=== PATIENT | male | born 1960 | race Caucasian/White ===

== ENCOUNTER 2019-12-14 22:42 | Emergency (ER) | payer MEDICARE, MEDICAID, SELFPAY ==
[2019-12-14 22:43] VITALS: BP 102/66; PULSE 86; RESP 17; TEMP 36.4; O2SAT 98; BMI 29.5
--- NOTE | 2019-12-14 22:57 | RAD_ITS ---
STUDY: X-RAY - PELVIS AND LEFT HIP REASON FOR EXAM: Male, 59 years old. Hip pain TECHNIQUE: 3 views of the pelvis and hip. COMPARISON: None. FINDINGS: There is a non-specific bowel gas pattern. Normal visualized soft tissue structures. Normal bilateral iliac wings, sacroiliac joints and visualized sacrum. Normal bilateral superior and inferior pubic rami. Normal pubic symphysis. Normal bilateral ischial tuberosities. Normal visualized femoral head. Normal acetabulum. Normal hip joint. RAD/HIP, UNI W/ Pelvis 2-3 Views IMPRESSION: Normal x-ray examination of the pelvis and hip. Electronically Signed: Adrian Luna MD at 23:29 EST , Service support ,
[2019-12-14] MEDS: Ketorolac 30 MG/ML Syringe IM (23:05)
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
--- NOTE | 2019-12-14 23:39 | ED.DEP ---
ED Disposition - Plan for ED Patient: Instructions: Hip Strain Referrals: Daya Jay, JOHNNY-C [Primary Care Provider] -
[2019-12-14 23:46] VITALS: BP 117/54; PULSE 69; RESP 18; O2SAT 96
== END 2019-12-14 23:47 | disposition home or self-care (01) ==
PROVIDERS: Emergency Provider Emergency Medicine; PCP Nurse Practitioner Family
DX: M25.552 Pain in left hip (principal); G89.29 Other chronic pain; I10 Essential (primary) hypertension; Z72.0 Tobacco use
CPT/HCPCS: 73502; 96372; 99282; J7050

== ENCOUNTER → 2020-01-09 | Outpatient (CLI) | payer MEDICARE, MEDICAID, SELFPAY ==
[2019-12-14 22:43] VITALS: BMI 29.5
--- NOTE | 2020-01-09 11:12 | RAD_ITS ---
STUDY: X-RAY - LUMBAR SPINE REASON FOR EXAM: Male, 59 years old. Left hip pain, NKI TECHNIQUE: 3 view(s) of the lumbar spine were obtained. COMPARISON: None FINDINGS: Normal lumbar lordosis. There is no substantial scoliosis. There is a normal alignment of the vertebrae. Normal vertebral bodies and endplates. Mild generalized degenerative disc changes and minimal spondylitic endplate changes. There is no demonstrated fracture. There is no demonstrated spondylolysis of the pars interarticulares. Atherosclerotic vascular calcifications. Calcifications in the infrarenal abdominal wall suggests that there may be a fusiform dilatation of the aorta along the order of 3 to 4 cm diameter. RAD/Lumbar Spine 2 or 3 Views IMPRESSION: Normal alignment of the lumbar spine without fracture, osteolytic or blastic bone lesion. Mild degenerative disc and joint changes. 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 Ultrasound versus CT evaluation recommended. Electronically Signed: Kathrin Downing MD at 20:10 EST , Service support ,
== END | disposition home or self-care (01) ==
LOC: RAD 11:05
PROVIDERS: PCP Nurse Practitioner Family; Referring Provider Anesthesiology Pain Medicine; Visit Provider Anesthesiology Pain Medicine
DX: M54.5 Low back pain (principal)
CPT/HCPCS: 72100

== ENCOUNTER → 2020-01-18 | Outpatient (CLI) | payer MEDICARE, MEDICAID, SELFPAY ==
[2020-01-15 09:06] VITALS: BMI 30.1
[2020-01-18 10:14] LABS: AST(SGOT) 18 U/L (15-37); Alanine Aminotransfer ALT/SGPT 25 U/L (16-61); Albumin, Serum 3.6 g/dL (3.2-5.0); Alkaline Phosphatase 92 U/L (45-117); Bilirubin, Direct 0.07 mg/dL (0.00-0.30); Cholesterol 198 mg/dL (200); Globulin 3.6 g/dL (2.2-4.2); High Density Lipoprotein 49 mg/dL; Protein, Total 7.2 g/dL (6.4-8.2); Triglycerides 197 mg/dL; Very Low Density Lipoprotein 39 mg/dL (5-40)
== END | disposition home or self-care (01) ==
PROVIDERS: PCP Nurse Practitioner Family; Visit Provider Internal Medicine Cardiovascular Disease
DX: E78.00 Pure hypercholesterolemia, unspecified (principal)
CPT/HCPCS: 36415; 80061; 80076

== ENCOUNTER → 2020-01-31 | Outpatient (CLI) | payer MEDICARE, MEDICAID, SELFPAY ==
[2020-01-15 09:06] VITALS: BMI 30.1
--- NOTE | 2020-01-31 12:41 | ECHOCS_ITS ---
Reason For Study: CHEST PAIN Procedure This was a 2D Doppler, Color Flow transthoracic echocardiogram. The study was technically difficult. Contrast injection was performed. Due to poor accoustic windows. Exam performed in department. Left Ventricle Moderately dilated left ventricle. The estimated ejection fraction is 50 %. Stage 1 diastolic dysfunction. There is mild global hypokinesis of the left ventricle. Right Ventricle Moderately dilated right ventricle. Normal systolic function. Atria The left atrium is mildly enlarged. Normal right atrium. Prominent eustachian valve. Normal atrial septum. Mitral Valve Equivocal mitral valve prolapse. Tricuspid Valve Normal tricuspid valve. Unable to estimate RV systolic pressure due to insufficient tricuspid regurgitant envelope. Aortic Valve Trisinus/trileaflet aortic valve. Mild (1+) aortic valve insufficiency. Pulmonic Valve Normal pulmonic valve. Great Vessels Moderately dilated aortic root. The ascending aorta is moderately dilated. The pulmonary artery is normal size. Normal inferior vena cava. Inferior vena cava collapse with sniff. Pericardium/Pleural No pericardial effusion. Medication 22 gauge I.V. with prn adaptor inserted into right arm. Diluted definity 3.0ml given slow IV push to enhance endocardial definition. MMode/2D Measurements & Calculations LVIDd: 5.6 cm IVSd: 1.1 cm Ao root diam: 5.1 cm LVIDs: 4.2 cm LVPWd: 1.1 cm RVDd: 4.3 cm FS: 25.5 % LAV(MOD-bp): 91.1 ml LA A4 area: 23.1 cm2 LA dimension(2D): 3.5 cm LAV(MOD-bp) Indexed: 43.7 ml/m2 LAV(MOD-sp2): 82.4 ml LAV(MOD-sp4): 84.2 ml RA A4 area: 13.9 cm2 Time Measurements MV dec time: 0.14 sec Doppler Measurements & Calculations MV E max haim: 64.2 cm/sec Lat Peak E' Haim: 8.1 cm/sec Med Peak E' Haim: 4.9 cm/sec MV A max haim: 74.4 cm/sec E/E' lat: 7.9 E/E' med: 13.1 MV E/A: 0.86 Ao V2 max: 112.1 cm/sec AI max haim: 437.6 cm/sec LV V1 max: 98.1 cm/sec Ao max P.0 mmHg AI max P.6 mmHg LV V1 max P.9 mmHg Ao V2 mean: 80.6 cm/sec AI dec slope: 175.8 cm/sec2 LV V1 mean P.1 mmHg Ao mean P.8 mmHg AI P1/2t: 729.1 msec LV V1 mean: 69.0 cm/sec Ao V2 VTI: 26.5 cm LV V1 VTI: 23.6 cm PA V2 max: 64.3 cm/sec Interpretation Summary Moderately dilated left ventricle. The estimated ejection fraction is 50 %. Stage 1 diastolic dysfunction. There is mild global hypokinesis of the left ventricle. Moderately dilated right ventricle. The left atrium is mildly enlarged. Equivocal posterior mitral valve prolapse without MR. Unable to estimate RV systolic pressure due to insufficient tricuspid regurgitant envelope. Mild (1+) aortic valve insufficiency. Moderately dilated aortic root at 5.1 cm. The ascending aorta is moderately dilated at 4.0cm. The study was technically difficult. Contrast injection was performed. There is no comparison study available. Ordering Physician: Esequiel Salazar Referring Physician: Daya Jay Performed By: Anu San, IRENE, RVT
== END | disposition home or self-care (01) ==
LOC: CVS 12:41
PROVIDERS: PCP Nurse Practitioner Family; Referring Provider Internal Medicine Cardiovascular Disease; Visit Provider Internal Medicine Cardiovascular Disease
DX: I25.10 Atherosclerotic heart disease of native coronary artery without angina pectoris (principal); R07.9 Chest pain, unspecified
CPT/HCPCS: 93306; Q9957; A4216; C8929

== ENCOUNTER → 2020-02-06 | Outpatient (CLI) | payer MEDICARE, MEDICAID, SELFPAY ==
[2020-01-15 09:06] VITALS: BMI 30.1
--- NOTE | 2020-02-06 10:28 | STEWCON_ITS ---
Reason For Study: Chest Pain; CAD Stress Results Protocol: Modified Dinesh Protocol With Definity Maximum Predicted HR: 160 bpm Target HR: 136 bpm % Maximum Predicted HR: 76 % DurationHeart Rate Stage (mm:ss) (bpm) BP Comment Baseline 59 138/822/10 Chest Pain; 5 ML Diluted Definity Modified Dinesh Protocol Stage 0 3:00 76 168/842/10 Chest Pain Modified Dinesh Protocol Stage 1/2 3:00 79 184/862/10 Chest Pain Modified Dinesh Protocol Stage 1 3:00 90 190/782/10 Chest Pain; Mild Dyspnea Modified Dinesh Protocol Stage 2 3:00 109 198/742/10 Chest Pain; Moderate Dyspnea Modified Dinesh Protocol Stage 3 1:09 121 / 2/10 Chest Pain; Moderate Dyspnea Recovery 64 140/721/10 Chest Pain Stress Duration: 13:09 mm:ss Maximum Stress HR: 121 bpm METS: 9 Baseline Echocardiogram Findings The estimated ejection fraction is 65 %. Stress Echo Wall motion Data Resting WM Intermediate WM Stress WM Resting Wall Motion Wall Motion Stress No regional wall motion No regional wall motion abnormalities noted. abnormalities noted. EKG Data The baseline ECG displays normal sinus rhythm. The maximum heart rate attained was 121 beats per minute. This was 75% of maximum predicted heart rate. The patient exercised into stage 3 of the Dinesh protocol. During stress, there were no ST or T wave changes noted to suggest ischemia. No arrhythmias noted. Interpretation Summary The estimated ejection fraction is 65 %. Normal, adequate, treadmill echocardiogram. Negative for ischemia by EKG and echocardiographic criteria. Patient had baseline 2 out of 10 substernal chest pain which did not worsen or improve during exercise. Test terminated due to fatigue and dyspnea. Hypertensive blood pressure response to exercise. Average exercise capacity for age. Rate-pressure product of 20,988 indicating adequate testing. Final LVEF is 75%. Decrease sensitivity due to poor echo windows requiring Definity agent. Patient tolerated procedure well. No complications. The study was technically difficult. Contrast injection was performed. Ordering Physician: Esequiel Salazar Referring Physician: Daya Jay Performed By: Carole Ventura, IRENE, RVT
== END | disposition home or self-care (01) ==
LOC: CVS 10:28
PROVIDERS: PCP Nurse Practitioner Family; Referring Provider Internal Medicine Cardiovascular Disease; Visit Provider Internal Medicine Cardiovascular Disease
DX: I25.10 Atherosclerotic heart disease of native coronary artery without angina pectoris (principal); R07.9 Chest pain, unspecified; E78.5 Hyperlipidemia, unspecified; Z95.5 Presence of coronary angioplasty implant and graft; Z72.0 Tobacco use
CPT/HCPCS: 93017; 93350; Q9957; A4216; C8928

== ENCOUNTER 2020-03-21 06:42 | Day surgery (SDC) | payer MEDICARE, MEDICAID, SELFPAY ==
[2020-01-15 09:06] VITALS: BMI 30.1
--- NOTE | 2020-03-19 15:21 | HP.PCM_ITS ---
History and Physical Date of Admission: 03/21/20 Patient is a very pleasant 59-year-old gentleman with a history of hypertension, bipolar disorder, hyperlipidemia, self reported nondiabetic, COPD, tobacco use with 1/2-1 pack per day for for the past 40 years, dilated aortic root, coronary artery disease status post angioplasty and stenting proximal and mid LAD at [facility] in [facility] on 03/03/2012. At the time of his catheterization his RCA was normal, as was his left circumflex. At that time he received a 3.5 ex-18 bare-metal integrity stent to his proximal/mid LAD. Previous to that he underwent a catheterization at [facility] on 06/17/2009 which showed essentially normal coronary arteries and normal ejection fraction. Lexiscan/MPI on 03/21/2019 at [facility] was reportedly normal. Most recent echocardiogram dated 04/18/2018, again at an outside hospital showed an EF of 55 to 59%, mild aortic insufficiency, dilated aortic root 4.6 cm and RVSP of 24 mmHg. His most recent lipids dated 11/30/2019 showed an LDL of 103 and HDL 37. He underwent echocardiogram on 01/31/2020 that showed ejection of 50%, stage I diastolic dysfunction, mild global hypokinesis of left ventricle, mildly dilated right ventricle, mildly enlarged left atrium, moderately dilated aortic root at 5.1 cm, and ascending aorta moderately dilated at 4 cm. He underwent a stress echocardiogram on 02/06/2020 that was considered to be a normal, adequate, treadmill echocardiogram that was negative for ischemia by EKG and echocardiographic criteria. Patient had baseline 2 out of 10 substernal chest pain which did not worsen or improve during exercise. He did have hypertensive blood pressure response and started on losartan therapy. 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 He was seen by Ashutosh at [facility] who recommended a preoperative left heart catheterization for AAA surgery. He denies arm, jaw, or neck discomfort. His exercise tolerance is stable. He denies symptoms of palpitations, lightheadedness, dizziness, near syncope, or syncopal episodes. He denies edema or claudication issues. He denies orthopnea, PND, fever, chills, blood in urine, blood in stool, myalgia, or unexplainable fatigue. He continues with chest pain at rest and SOB with activity. Intake Vital Signs: See EMR Intake Visit Reasons: [facility] for pre-operative evaluation Allergies No Known Allergies Allergy (Verified 01/15/20 09:31) Medications See EMR [facility] Medical History Atherosclerosis of coronary artery of [place] heart (Chronic) Dilated aortic root (Chronic) Essential hypertension (Chronic) Hyperlipidemia (Chronic) Diabetes mellitus, type II (Chronic) COPD (chronic obstructive pulmonary disease) (Chronic) Tobacco use (Chronic) GERD (gastroesophageal reflux disease) (Acute) Surgical History Stented coronary artery (Chronic 03/03/12) History of left heart catheterization (Chronic) Family History (Updated 01/15/20 @ 09:17 by Autumn Silverio) Unknown No problems noted. Social History (Updated 01/15/20 @ 09:51 by Esequiel Salazar MD) Smoking Status: Current every day smoker ROS Const Const: Negative for fatigue, weakness, body ache, fever(s), headache(s), chills, frequent falls, night sweats, daytime sleepiness, difficulty sleeping, excessive sweating, weight gain, weight loss, increased appetite, poor appetite, anorexia or other Eyes Eyes: Negative for blind spots, loss of peripheral vision, transient loss of vision, blurry vision, change in vision, double vision, floaters, tunnel vision or other ENT ENT: Negative for headache(s), dizziness, hearing loss, tinnitus, Nosebleed/epistaxis, balance problems, post nasal drip, lip swelling, tongue swelling, bleeding gums, hoarseness, neck pain, dry mouth or other Cardio Chest Pain: Yes (states weekly, lasting 5 minutes, always at rest) Frequency: weekly Character: sharp Onset: at rest Location: left chest (left pectoral region) Duration: minutes Exacerbation: other (spontaneous) Relieving: other (spontaneous) Palpitations: No Edema: None Muscle aches with walking: None Resp Respiratory: Positive for SOB with activity (Has COPD, still smoked 1/2 ppd, since age 11. Trying to quit.), Cough (Productive white phlegm) and wheezing; negative for SOB at rest, SOB orthopnea\SOB lying down, Coughing up blood/hemoptysis, chest congestion, pain on inspiration, snoring, stridor, crackles, paroxysmal nocturnal dyspnea or other GI GI: Negative nausea, vomiting, heartburn, constipation, belching, bloating, cramping, vomiting blood/hematemesis, bright, red blood in stools, black,tarry stools, loose stools, Difficulty Swallowing or other : Negative for hematuria, frequent nighttime urination/ nocturia, erectile dysfunction or abnormal vaginal bleeding Musc Musc: Negative for muscle aches/ myalgia, muscle weakness, joint pain or balance problems Skin Skin: Negative redness, non-healing lesions, rash, unusual bruising, skin ulcer, wounds, jaundice or other Neuro Neuro: Negative for dizziness, lightheadedness, near syncope, syncope, o rthostatic symptoms, frequent falls, headache(s), weakness, confusion, memory loss, restless legs, blurry vision, double vision, vertigo, seizures, lack of coordination or other Will Hematologic/Lymphatic: Negative for easy bleeding, easy bruising, enlarged lymph nodes or other Endo Endo: Negative for fatigue, cold intolerance, heat intolerance, excessive sweating, flushing, increased thirst/drinking, increased hunger, hair loss, hair growth or other Psych Psych: Negative for anxiety, depression, thoughts of harming anyone, thoughts of harming yourself, visual hallucinations, panic attacks or audible hallucinations Allergy Allergy/Immunology: Negative for throat swelling, Negative for tongue swelling, Negative for hives, Negative for rash, Negative for lip swelling Cardiology Exam Const Appearance: cooperative, healthy appearing and no acute distress Nutritional Appearance: well nourished Orientation: alert, oriented x3 and oriented to person Head Head: normal to inspection, normocephalic and atraumatic Nose: external nose normal Face and Sinus: face symmetric Mouth: oral mucosae normal Eyes General: appearance normal, both eyes and all related structures Eyelids: eyelids normal Conjunctivae: conjunctivae normal Pupils: PERRL and normal by confrontation EOM: EOM intact bilaterally Neck Neck: normal visual inspection and full ROM Carotids: normal carotid upstroke Chest Chest inspection: normal inspection of the chest Auscultation: Bilateral: Clear to Auscultation Cardio Palpation: normal PMI Rate: regular rate Rhythm: regular rhythm Heart sounds: S1 normal and S2 normal, no rubs, gallop, or murmur GI GI: normal to inspection, no hepatosplenomegaly and bowel sounds present Neuro General: alert, awake, oriented x3, CN's II-XI intact bilaterally and moves all extremities Skin Skin: no rashes or lesions noted Extremities Pulses: Normal: Right Femoral Pulse, Left Femoral Pulse, Right Dorsalis Pedis Pulse, Left Dorsalis Pedis Pulse, Right Posterior Tibial Pulse, Left Posterior Tibial Pulse, Right Radial Pulse, Left Radial Pulse Lower Extremity Edema: None: Bilateral Psych Psychological: normal affect Assessment & Plan 1. Atherosclerosis of coronary artery of [place] heart I25.10 Plan 1. Coronary artery disease: The patient has a history of bare-metal stenting to his proximal mid LAD in 2011. He underwent stress test and echocardiogram in January 2020 with results noted above. He will proceed with left heart catheterization as a preoperative evaluation given ongoing chest pain and previous stenting. Based on results, further recommendation will be made. 2. Dilated aortic root I77.810 Noted on LHC done 01/14/[address] Good Jones Plan 2. Patient was referred to cardiothoracic surgeon. He is expected undergo surgery in the near future depending pulmonary evaluation. His left heart catheterization today is part of his preoperative evaluation. 3. Essential hypertension I10 Plan 3. Hypertension: His blood pressure and heart rate are well controlled. 4. Hyperlipidemia E78.5 Plan 4. Hyperlipidemia: Lipid panel on 01/18/2020 showed cholesterol: 198, HDL: 49, LDL: 110, and triglycerides: 197. His statin medication was increased to Lipitor 80 mg p.o. daily. He is expected to repeat liver and lipid profile in the next 6 months. 5. Tobacco use Z72.0 Plan 5. Tobacco abuse: Tobacco cessation was strongly encouraged. This note was generated using a voice recognition system and there may be incorrect words, spelling or punctuation that were not noted when reviewing the office note prior to saving.
--- NOTE | 2020-03-20 10:00 | EKG12_ITS ---
Test Reason : PREOP Blood Pressure : / mmHG Vent. Rate : 045 BPM Atrial Rate : 045 BPM P-R Int : 178 ms QRS Dur : 096 ms QT Int : 454 ms P-R-T Axes : 037 -35 026 degrees QTc Int : 392 ms Sinus bradycardia Left axis deviation Abnormal ECG Confirmed by GANESH PAZ, COLLINS ([id number]), newspaper photo editor LINDEN WALKER ([id number]) on 03/24/2020 10:57:24 AM Referred By: Esequiel Salazar Confirmed By:ZULY ANDERSEN MD
[2020-03-20 10:43] LABS: Anion Gap 5 (5-15); BUN 20 mg/dL (7-18); BUN/Creat Ratio 13.9 RATIO (10-20); Calcium,Total 8.8 mg/dL (8.5-10.1); Chloride 111 mmol/L (98-107); Creatinine, Serum 1.44 mg/dL (0.70-1.30); EST Glomerular Filtration Rate 53 mL/min (>60); Est Glom Filt Rate - Afr Amer 64 mL/min (>60); Glucose 106 mg/dL (74-106); Potassium 4.4 mmol/L (3.5-5.1); Sodium Level 144 mmol/L (136-145)
[2020-03-20 12:03] LABS: Color, Urine Yellow (Yellow); Glucose, Dipstick Normal (Normal); Ketone-Dipstick Negative (Negative); Leukocyte Esterase-Dipstick 25 /ul (Negative); Nitrite-Dipstick Negative (Negative); Occult Blood-Urine 25 /ul (Negative); Protein-Dipstick 15 mg/dl (Negative); Urine Bilirubin Dipstick Negative (Negative); Urine Clarity Sl. Cloudy (Clear); Urine Urobilinogen 1 mg/dl (Normal)
[2020-03-20 12:23] LABS: Partial Thromboplast Time 30.8 Seconds (24.1-36.2); Prothrombin Time (Protime)PT. 12.7 SECONDS (11.7-14.9)
[2020-03-20 12:24] LABS: Hematocrit 43.7 % (40-54); Hemoglobin 13.2 g/dL (13.0-16.5); Mean Corp Hgb Conc 30.2 g/dL (32-36); Mean Corpuscular Hgb 27.2 pg (27.0-32.0); Mean Corpuscular Volume 90.1 fL (80-94); Mean Platelet Vol. 10.9 fl (6.2-12.0); Platelet Count 165 K/mm3 (150-450); RBC Distribution Width CV 14.6 % (11.6-14.6); Red Blood Count 4.85 M/mm3 (4.6-6.2); White Blood Count 6.7 K/mm3 (4.4-11.0)
[2020-03-20 12:41] VITALS: BMI 30.1
--- NOTE | 2020-03-21 08:12 | HP.PCM_ITS ---
Problem List (1) Atherosclerosis of coronary artery of [place] heart Status: Chronic (2) COPD (chronic obstructive pulmonary disease) Status: Chronic (3) Diabetes mellitus, type II Status: Chronic (4) Dilated aortic root Status: Chronic Comment: Noted on [facility] done 01/14/[address] Good Jones (5) Essential hypertension Status: Chronic (6) Hyperlipidemia Status: Chronic (7) Stented coronary artery Status: Chronic Comment: 3.5X18 mm BMS to proximal mid LAD per Dr. Good Jones @ [facility] 03/03/2012. (8) Tobacco use Status: Chronic History and Physical Date of Admission: 03/21/20 [facility] Medical Records Department [address] [place] [address] History and Physical 03/19/20 1521 MR#: [id number] Acct: [id number] Name: SHAWN GIPSON Rep #:[id number] : 1960 59 From: Remy Jon PCP: ANDREW Viveros Status:REG S DC Y Location: [facility] History and Physical Date of Admission: 03/21/20 Patient is a very pleasant 59-year-old gentleman with a history of hypertension, bipolar disorder, hyperlipidemia, self reported nondiabetic, COPD, tobacco use with 1/2-1 pack per day for for the past 40 years, dilated aortic root, coronary artery disease status post angioplasty and stenting proximal and mid LAD at [facility] in [facility] on 03/03/2012. At the time of his catheterization his RCA was normal, as was his left circumflex. At that time he received a 3.5 ex-18 bare-metal integrity stent to his proximal/mid LAD. Previous to that he underwent a catheterization at [facility] on 06/17/2009 which showed essentially normal coronary arteries and normal ejection fraction. Lexiscan/MPI on 03/21/2019 at [facility] was reportedly normal. Most recent echocardiogram dated 04/18/2018, again at an outside hospital showed an EF of 55 to 59%, mild aortic insufficiency, dilated aortic root 4.6 cm and RVSP of 24 mmHg. His most recent lipids dated 11/30/2019 showed an LDL of 103 and HDL 37. He underwent echocardiogram on 01/31/2020 that showed ejection of 50%, stage I diastolic dysfunction, mild global hypokinesis of left ventricle, mildly dilated right ventricle, mildly enlarged left atrium, moderately dilated aortic root at 5.1 cm, and ascending aorta moderately dilated at 4 cm. He underwent a stress echocardiogram on 02/06/2020 that was considered to be a normal, adequate, treadmill echocardiogram that was negative for ischemia by EKG and echocardiographic criteria. Patient had baseline 2 out of 10 substernal chest pain which did not worsen or improve during exercise. He did have hypertensive blood pressure response and started on losartan therapy. 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 He was seen by Ashutosh at [facility] who recommended a preoperative left heart catheterization for AAA surgery. He denies arm, jaw, or neck discomfort. His exercise tolerance is stable. He denies symptoms of palpitations, lightheadedness, dizziness, near syncope, or syncopal episodes. He denies edema or claudication issues. He denies orthopnea, PND, fever, chills, blood in urine, blood in stool, myalgia, or unexplainable fatigue. He continues with chest pain at rest and SOB with activity. Intake Vital Signs: See EMR Intake Visit Reasons: [facility] for pre-operative evaluation Allergies No Known Allergies Allergy (Verified 01/15/20 09:31) Medications See EMR [facility] Medical History Atherosclerosis of coronary artery of [place] heart (Chronic) Dilated aortic root (Chronic) Essential hypertension (Chronic) Hyperlipidemia (Chronic) Diabetes mellitus, type II (Chronic) COPD (chronic obstructive pulmonary disease) (Chronic) Tobacco use (Chronic) GERD (gastroesophageal reflux disease) (Acute) Surgical History Stented coronary artery (Chronic 03/03/12) History of left heart catheterization (Chronic) Family History (Updated 01/15/20 @ 09:17 by Autumn Silverio) Unknown No problems noted. Social History (Updated 01/15/20 @ 09:51 by Esequiel Salazar MD) Smoking Status: Current every day smoker ROS Const Const: Negative for fatigue, weakness, body ache, fever(s), headache(s), chills, frequent falls, night sweats, daytime sleepiness, difficulty sleeping, excessive sweating, weight gain, weight loss, increased appetite, poor appetite, anorexia or other Eyes Eyes: Negative for blind spots, loss of peripheral vision, transient loss of vision, blurry vision, change in vision, double vision, floaters, tunnel vision or other ENT ENT: Negative for headache(s), dizziness, hearing loss, tinnitus, Nosebleed/epistaxis, balance problems, post nasal drip, lip swelling, tongue swelling, bleeding gums, hoarseness, neck pain, dry mouth or other Cardio Chest Pain: Yes (states weekly, lasting 5 minutes, always at rest) Frequency: weekly Character: sharp Onset: at rest Location: left chest (left pectoral region) Duration: minutes Exacerbation: other (spontaneous) Relieving: other (spontaneous) Palpitations: No Edema: None Muscle aches with walking: None Resp Respiratory: Positive for SOB with activity (Has COPD, still smoked 1/2 ppd, since age 11. Trying to quit.), Cough (Productive white phlegm) and wheezing; negative for SOB at rest, SOB orthopnea\SOB lying down, Coughing up blood/hemoptysis, chest congestion, pain on inspiration, snoring, stridor, crackles, paroxysmal nocturnal dyspnea or other GI GI: Negative nausea, vomiting, heartburn, constipation, belching, bloating, cramping, vomiting blood/hematemesis, bright, red blood in stools, black,tarry stools, loose stools, Difficulty Swallowing or other : Negative for hematuria, frequent nighttime urination/ nocturia, erectile dysfunction or abnormal vaginal bleeding Musc Musc: Negative for muscle aches/ myalgia, muscle weakness, joint pain or balance problems Skin Skin: Negative redness, non-healing lesions, rash, unusual bruising, skin ulcer, wounds, jaundice or other Neuro Neuro: Negative for dizziness, lightheadedness, near syncope, syncope, orthostatic symptoms, frequent falls, headache(s), weakness, confusion, memory loss, restless legs, blurry vision, double vision, vertigo, seizures, lack of coordination or other Will Hematologic/Lymphatic: Negative for easy bleeding, easy bruising, enlarged lymph nodes or other Endo Endo: Negative for fatigue, cold intolerance, heat intolerance, excessive s weating, flushing, increased thirst/drinking, increased hunger, hair loss, hair growth or other Psych Psych: Negative for anxiety, depression, thoughts of harming anyone, thoughts of harming yourself, visual hallucinations, panic attacks or audible hallucinations Allergy Allergy/Immunology: Negative for throat swelling, Negative for tongue swelling, Negative for hives, Negative for rash, Negative for lip swelling Cardiology Exam Const Appearance: cooperative, healthy appearing and no acute distress Nutritional Appearance: well nourished Orientation: alert, oriented x3 and oriented to person Head Head: normal to inspection, normocephalic and atraumatic Nose: external nose normal Face and Sinus: face symmetric Mouth: oral mucosae normal Eyes General: appearance normal, both eyes and all related structures Eyelids: eyelids normal Conjunctivae: conjunctivae normal Pupils: PERRL and normal by confrontation EOM: EOM intact bilaterally Neck Neck: normal visual inspection and full ROM Carotids: normal carotid upstroke Chest Chest inspection: normal inspection of the chest Auscultation: Bilateral: Clear to Auscultation Cardio Palpation: normal PMI Rate: regular rate Rhythm: regular rhythm Heart sounds: S1 normal and S2 normal, no rubs, gallop, or murmur GI GI: normal to inspection, no hepatosplenomegaly and bowel sounds present Neuro General: alert, awake, oriented x3, CN's II-XI intact bilaterally and moves all extremities Skin Skin: no rashes or lesions noted Extremities Pulses: Normal: Right Femoral Pulse, Left Femoral Pulse, Right Dorsalis Pedis Pulse, Left Dorsalis Pedis Pulse, Right Posterior Tibial Pulse, Left Posterior Tibial Pulse, Right Radial Pulse, Left Radial Pulse Lower Extremity Edema: None: Bilateral Psych Psychological: normal affect Assessment & Plan 1. Atherosclerosis of coronary artery of [place] heart I25.10 Plan 1. Coronary artery disease: The patient has a history of bare-metal stenting to his proximal mid LAD in 2011. He underwent stress test and echocardiogram in January 2020 with results noted above. He will proceed with left heart catheterization as a preoperative evaluation given ongoing chest pain and previous stenting. Based on results, further recommendation will be made. 2. Dilated aortic root I77.810 Noted on [facility] done 01/14/[address] Good Jones Plan 2. Patient was referred to cardiothoracic surgeon. He is expected undergo surgery in the near future depending pulmonary evaluation. His left heart catheterization today is part of his preoperative evaluation. 3. Essential hypertension I10 Plan 3. Hypertension: His blood pressure and heart rate are well controlled. 4. Hyperlipidemia E78.5 Plan 4. Hyperlipidemia: Lipid panel on 01/18/2020 showed cholesterol: 198, HDL: 49, LDL: 110, and triglycerides: 197. His statin medication was increased to Lipitor 80 mg p.o. daily. He is expected to repeat liver and lipid profile in the next 6 months. 5. Tobacco use Z72.0 Plan 5. Tobacco abuse: Tobacco cessation was strongly encouraged. This note was generated using a voice recognition system and there may be incorrect words, spelling or punctuation that were not noted when reviewing the office note prior to saving. 03/21/20 0750 <Electronically signed by Remy Zamudio> Date _ Remy Moreno Signature: Date (if applicable) CC: ANDREW Ventura; ANDREW Jay; Esequiel Salazar MD ~ [facility] [place] Interventional cardiology addendum: The patient seen and examined prior to procedure, and agree with above. The patient will be evaluated with a left heart catheterization for possible ascending aortic root repair and possible abdominal aortic aneurysm repair as well. The risk/benefits of the procedure were thoroughly explained the patient including specific attention to lack of onsite surgical backup, and the patient is agreed to proceed. Catheterization to follow. Interventional cardiology addendum: The patient seen and examined prior to procedure, and agree with above. The patient will be evaluated with a left heart catheterization for possible ascending aortic root repair and possible abdominal aortic aneurysm repair as well. The risk/benefits of the procedure were thoroughly explained the patient including specific attention to lack of onsite surgical backup, and the patient is agreed to proceed. Catheterization to follow.
--- NOTE | 2020-03-21 09:37 | CL.D_ITS ---
Patient Name: SHAWN GIPSON Study Date: 03/21/2020 Performing: Esequiel Salazar MD Ht: 68.89 inches 175 cm : 1960 Wt: 205.03 lbs 93 kg Age: 59 Gender: male BSA: 2.09 PROCEDURE(S) PERFORMED DM55-MCA/COR/LV DC11-AO ROOT ANGIO WITH HEART CATH CLINICAL PROFILE AND INDICATIONS Indications: Stable Known CAD, Pre-Operative Evaluation Heart Failure: None Stress/Imaging Date: 02/06/2020Stress Echocardiogram: Negative Angina Classification Anginal Classification w/in 2 Weeks: No symptoms CAD Presentations: No Sxs, no angina. Comorbidities/Risk Factors: Current/Recent Smoker (< 1year) Hypertension Dyslipidemia Prior PCI Chronic Lung Disease Diabetes Mellitus: Diabetes Therapy: Oral CONCLUSIONS Global LV systolic dysfunction- Mild LVEF: by LV gram 55 % Elevated Left Ventricular End Diastolic Pressure Non obstructive coronary arteries Widely patent LAD stent Aortic Root Aneurysm Aortic Valve Insufficiency Mild RECOMMENDATIONS Surgery consult for Ascending aortic aneurysm repair Manual sheath removal of RFA sheath. DESCRIPTION OF PROCEDURE The patient arrived to the procedure lab. The risks and benefits of the procedure as well as a full d escription of our services here and current unavailability of surgical backup were fully explained to the patient and/or their significant other prior to the catheterization. The Timeout was completed, verifying the correct patient and procedure. The patient's procedural site was prepped and draped in the usual fashion. Local anesthetic was given subcutaneously to right radial region with Lidocaine 2% . Local anesthetic was given subcutaneously to right groin region with Lidocaine 2%. Using a modified Seldinger technique, arterial access was obtained via the right radial artery, a 6Fr sheath was inse rted., arterial access was obtained via the right femoral artery, a 4Fr sheath was inserted Left Cor onary Artery selective angiography was performed in multiple views using a 5 Fr. JL3.5 catheter. Rig t Coronary Artery selective angiography was then performed in multiple views using a 4 Fr. 3DRC catheter. Left Ventriculography was performed in GOINS projection using a 4 Fr. Pigtail catheter. LV to AO pullback pressures were then recorded.The arterial sheath was pulled and a TR Band was appli ed for hemostasis-13cc air. The arterial sheath was pulled and manual compression applied until hemos tasis is achieved. CORONARY ANGIOGRAPHY DOMINANCE: Right Dominant LEFT HEART ASSESSMENT Left Ventricular Ejection Fraction: by LV Gram 55 % Global Hypokinesis - Mild Depressed Left Ventricular systolic function LVEDP: 25 mmHg LEFT MAIN: Angiographically normal LEFT ANTERIOR DESCENDING ARTERY: MID LAD: Mild luminal irregularities less than 30% CIRCUMFLEX ARTERY: Mild luminal irregularities less than 30% RIGHT CORONARY ARTERY: MID RCA: Mild luminal irregularities less than 30% VALVE FINDINGS: Aortic Valve Insufficiency: Grade 1 AORTIC ROOT: Aneurysm COMPLICATIONS No Complications PROCEDURE MEDICATIONS Versed 1 mg IV Fentanyl 50 mcg IV Baby Aspirin (81mg) 1 Tabs PO @ 03/21/2020 07:18:29 Heparin diluted in 23cc Heparinized saline. Patient given 10cc IA of this solution. 03/21/2020 08:41: 35 Plavix 75 mg PO 03/21/2020 07:18:36 Verapamil 2.5mg, Ntg 100mcgs, 2000 units of Heparin diluted in 23cc Heparinized saline. Patient give n 10cc IA of this solution. 03/21/2020 08:41:35 SUMMARY OF HEMODYNAMIC DATA Time AIR REST ECG 07:31:40 AO 121/70 (88) SA 08:46:52 LV 148/-17, 25 09:19:38 LV 135/-8, 22 09:19:45 LVp 139/-8, 27 09:19:52 AOp 138/62 (89) 09:19:57 Signed By Esequiel Salazar MD On 03/21/2020 09:36:40 Esequiel Salazar MD
== END 2020-03-21 13:45 | disposition home or self-care (01) ==
LOC: CLSP 06:43
PROVIDERS: PCP Nurse Practitioner Family; Referring Provider Internal Medicine Cardiovascular Disease; Visit Provider Internal Medicine Cardiovascular Disease
DX: Z01.810 Encounter for preprocedural cardiovascular examination (principal); I25.10 Atherosclerotic heart disease of native coronary artery without angina pectoris; I35.1 Nonrheumatic aortic (valve) insufficiency; I77.810 Thoracic aortic ectasia; R07.9 Chest pain, unspecified; R06.02 Shortness of breath; J44.9 Chronic obstructive pulmonary disease, unspecified; E11.9 Type 2 diabetes mellitus without complications; I10 Essential (primary) hypertension; E78.5 Hyperlipidemia, unspecified; K21.9 Gastro-esophageal reflux disease without esophagitis; F17.200 Nicotine dependence, unspecified, uncomplicated; Z95.5 Presence of coronary angioplasty implant and graft
CPT/HCPCS: 36415; 80048; 81002; 85027; 85610; 85730; 93005; 93458; 93567; J7040; Q9967; C1769; C1894

== ENCOUNTER 2020-04-07 20:46 | Emergency (ER) | payer MEDICARE, MEDICAID, SELFPAY ==
[2020-03-20 12:41] VITALS: BMI 30.1
[2020-04-07 20:47] VITALS: BP 143/82; PULSE 80; RESP 12; TEMP 36.8; O2SAT 96; BMI 28.8
--- NOTE | 2020-04-07 21:17 | ED.RN ---
RN CALLED FOR EKG, PULLED OLD EKGS FOR
--- NOTE | 2020-04-07 21:19 | EKG12_ITS ---
Test Reason : CP Blood Pressure : / mmHG Vent. Rate : 080 BPM Atrial Rate : 080 BPM P-R Int : 168 ms QRS Dur : 106 ms QT Int : 398 ms P-R-T Axes : 047 -51 065 degrees QTc Int : 459 ms Normal sinus rhythm Left anterior fascicular block Minimal voltage criteria for LVH, may be normal variant Abnormal ECG Confirmed by INESSA ESQUIVEL ([id number]), newspaper copy editor LINDEN WALKER ([id number]) on 04/14/2020 1:45:43 PM Referred By: CHACHO PEPPER Confirmed By:INESSA ESQUIVEL
[2020-04-07] MEDS: Ondansetron 4 MG/2 ML Vial IV (21:31)
[2020-04-07] MEDS: 0.9% Normal Saline 1,000 ML 150 ML IV (21:31)
--- NOTE | 2020-04-07 21:41 | RAD_ITS ---
STUDY: X-RAY CHEST REASON FOR EXAM: Male, 59 years old. INTERMITTENT CHEST PAIN, NAUSEA AND VOMITING x4 DAYS TECHNIQUE: Single frontal view of the chest. COMPARISON: None. FINDINGS: There is no focal consolidation. Normal size heart. Normal mediastinum and capo. Normal visualized pulmonary arteries. There appears to be a prominent ascending thoracic aorta. Normal visualized thoracic spine. Normal visualized ribs, clavicles, and shoulders. There is no demonstrated abnormality of the visualized soft tissue structures of the upper abdomen. RAD/Chest 1 View (Portable) IMPRESSION: Prominent appearing ascending thoracic aorta, recommend a chest CT for further evaluation. Electronically Signed: Sidra Chavira MD at 22:34 EDT Tel , Service support ,
[2020-04-07 21:54] LABS: Absolute Lymphocyte Count 1.22 X10^3/uL (0.83-4.51); Absolute Neutrophil Count 4.4 X10^3/uL (2.0-7.7); Basophil# 0.04 X10^3/uL; Basophil% 0.6 % (0-1); Hematocrit 46.4 % (40-54); Hemoglobin 14.7 g/dL (13.0-16.5); Lymphocyte # 1.22 X10^3/ul (4.0); Lymphocyte % 18.3 % (19-41); Mean Corp Hgb Conc 31.7 g/dL (32-36); Mean Corpuscular Hgb 27.7 pg (27.0-32.0); Mean Corpuscular Volume 87.4 fL (80-94); Mean Platelet Vol. 10.6 fl (6.2-12.0); Monocyte# 0.78 X10^3/uL; Monocyte% 11.7 % (0-10); NRBC Flagged by Analyzer 0 % (0-5); Neutrophil # 4.39 X10^3/uL (2.7-7.7); Neutrophil % 65.9 % (47-70); Platelet Count 177 K/mm3 (150-450); RBC Distribution Width CV 14.5 % (11.6-14.6); RBC Distribution Width SD 46.2 fl (35.1-43.9); Red Blood Count 5.31 M/mm3 (4.6-6.2); White Blood Count 6.7 K/mm3 (4.4-11.0)
[2020-04-07 22:00] LABS: AST(SGOT) 12 U/L (15-37); Alanine Aminotransfer ALT/SGPT 26 U/L (16-61); Albumin, Serum 3.6 g/dL (3.2-5.0); Alkaline Phosphatase 97 U/L (45-117); Anion Gap 7 (5-15); BUN 22 mg/dL (7-18); Bilirubin, Direct 0.21 mg/dL (0.00-0.30); Calcium,Total 9.3 mg/dL (8.5-10.1); Chloride 109 mmol/L (98-107); Creatinine, Serum 1.57 mg/dL (0.70-1.30); EST Glomerular Filtration Rate 48 mL/min (>60); Est Glom Filt Rate - Afr Amer 58 mL/min (>60); Estimated Creatinine Clearance 50.04 ml/min; Globulin 3.6 g/dL (2.2-4.2); Glucose 97 mg/dL (74-106); Lipase 134 U/L (73-393); Potassium 4.5 mmol/L (3.5-5.1); Protein, Total 7.2 g/dL (6.4-8.2); Sodium Level 143 mmol/L (136-145)
[2020-04-07 22:47] VITALS: BP 150/83; PULSE 78; RESP 14; O2SAT 96
[2020-04-07] MEDS: Mag Hydrox/Al Hydrox/Simeth 30 ML UDC PO (23:32)
--- NOTE | 2020-04-07 23:36 | ED.VIS.GEN ---
History of Present Illness Chief Complaint: Nausea/Vomiting Informant: Patient Onset: Days - 5 days Context: Gradual Onset Current Severity: Mild Maximum Severity: Moderate Narrative: Patient present secondary to nausea, vomiting, and diarrhea since the . Patient states he really had been able to eat anything since last secondary to nausea and vomiting. He was feeling better today and ate some chicken and mashed potatoes for dinner. After short time. He then developed diarrhea and vomiting again. He states he is had some intermittent chest pain since as well. He thinks this may be reflux related. Patient does have a history of cardiac disease along with cardiac stent. He also has a known dilated aortic root and is scheduled for preop testing within the next week or so for the surgical repair. - Past Medical History (1) Atherosclerosis of coronary artery of [place] heart Status: Chronic (2) COPD (chronic obstructive pulmonary disease) Status: Chronic (3) Diabetes mellitus, type II Status: Chronic (4) Dilated aortic root Status: Chronic Comment: Noted on [facility] done 01/14/[address] Good Jones (5) Essential hypertension Status: Chronic (6) Hyperlipidemia Status: Chronic (7) Stented coronary artery Status: Chronic Comment: 3.5X18 mm BMS to proximal mid LAD per Dr. Good Jones @ [facility] 03/03/2012. Past Medical History - Allergies and Home Meds Allergies/Adverse Reactions: Allergies No Known Allergies Allergy (Verified 04/07/20 20:50) Primary Care Physician: Daya Jay NP-C [Primary Care Provider] - Prior records reviewed: Yes Smoking Status: Current every day smoker Review of Systems General: Denies: Chills, Fever Eyes: Denies: Visual changes - bilaterally ENT: Denies: Bilateral ear pain Cardiovascular: Reports: Chest pain Respiratory: Denies: Dyspnea, Cough Gastrointestinal: Reports: Nausea, Vomiting, Diarrhea. Denies: Abdominal pain Genitourinary: Denies: Dysuria Musculoskeletal: Denies: Back pain, Extremity Pain Skin: Denies: Rash Neurological: Denies: Headache Endocrine: Denies: Polyuria, Polydipsia Hematologic: Denies: Easy bruising Physical Exam Vital Signs/Narrative: Vital Signs Temp Pulse Resp BP Pulse Ox 04/07/20 22:47 78 14 150/83 H 96 04/07/20 20:47 98.2 F 80 12 143/82 H 96 Inital Vital Signs reviewed: Yes General: Well nourished, Well developed Head: Normocephalic ENT: Moist mucous membranes Neck: Supple Cardiovascular: Regular rate, Regular rhythm Respiratory: No distress, CTA bilaterally Abdomen: Soft, Nontender, Hypoactive bowel sounds Extremities: Nontender Skin: Normal color Neurological: Alert, Oriented x3 Psychological: Normal affect Diagnostic/Tx/Re-eval Impressions Chest X-Ray 04/07/20 21:41 IMPRESSION: Prominent appearing ascending thoracic aorta, recommend a chest CT for further evaluation. Electronically Signed: Sidra Chavira MD at 22:34 EDT Tel , Service support , 04/07/20 21:41 Chest 1 View (Portable) [RAD] Stat Laboratory Results 04/07/20 04/07/20 21:30 21:30 WBC 6.7 RBC 5.31 Hgb 14.7 Hct 46.4 MCV 87.4 MCH 27.7 MCHC 31.7 L RDW Std Deviation 46.2 H RDW Coeff of Sincere 14.5 Plt Count 177 MPV 10.6 Immature Gran % (Auto) 0.500 Neut % (Auto) 65.9 Lymph % (Auto) 18.3 L Mcintosh % (Auto) 11.7 H Eos % (Auto) 3.0 Baso % (Auto) 0.6 Absolute Neuts (auto) 4.4 Absolute Lymphs (auto) 1.22 Nucleated RBC % 0 Sodium 143 Potassium 4.5 Chloride 109 H Carbon Dioxide 27.0 Anion Gap 7 BUN 22 H Creatinine 1.57 H Estim Creat Clear Calc 50.04 Est GFR (MDRD) Af Amer 58 L Est GFR (MDRD) Non-Af 48 L BUN/Creatinine Ratio 14.0 Glucose 97 Calcium 9.3 Total Bilirubin 0.50 Direct Bilirubin 0.21 AST 12 L ALT 26 Alkaline Phosphatase 97 Troponin I < 0.015 Total Protein 7.2 Albumin 3.6 Globulin 3.6 Lipase 134 - EKG Initial EKG Interpretation: Sinus Rhythm - Sinus at 80 with left anterior fascicular block. Unchanged when compared to prior study of February 2020. No acute ischemia. - Medical Decision Making Patient was given IV fluids and Zofran. On repeat evaluation nausea significantly improved. He states he is had a little bit of chest pain while here but thinks it is reflux related. He is given a GI cocktail. Chest x-ray was read as widened mediastinum at ascending aorta, however patient has known dilated aortic root and is currently undergoing preop testing for definitive repair. On repeat evaluation reflux and chest pain is improved. Patient has had intermittent chest pain for the last for 5 days and has a negative troponin. He will begin prescription for Zofran will be sure to continue his reflux medication. I advised him to follow a bland diet and slowly increase this. Repeat abdominal exam is benign. ED Disposition - Plan for ED Patient: Disposition: Home or Assisted Living Diagnosis: Gastroenteritis Instructions: ED Food Poison Or Gastroenteritis Prescriptions: Ondansetron [Zofran Odt] 4 mg PO Q8H PRN PRN #10 tab PRN Reason: Nausea Transmission Status: Pending to [facility] Referrals: Daya Jay, [employer] [Primary Care Provider] - 3-5 Days if not improving
[2020-04-08] VITALS: BP 147/87; PULSE 67; RESP 16; O2SAT 96
== END 2020-04-08 00:07 | disposition home or self-care (01) ==
PROVIDERS: Emergency Provider Emergency Medicine; PCP Nurse Practitioner Family
DX: K52.9 Noninfective gastroenteritis and colitis, unspecified (principal); I25.10 Atherosclerotic heart disease of native coronary artery without angina pectoris; J44.9 Chronic obstructive pulmonary disease, unspecified; E11.9 Type 2 diabetes mellitus without complications; I10 Essential (primary) hypertension; E78.5 Hyperlipidemia, unspecified; F17.200 Nicotine dependence, unspecified, uncomplicated; Z95.5 Presence of coronary angioplasty implant and graft
CPT/HCPCS: 71045; 80048; 80076; 83690; 84484; 85025; 93005; 96361; 96374; 99285; J7030; A4216; J2405

== ENCOUNTER → 2020-04-17 09:47 | Outpatient (CLI) | payer MEDICARE, MEDICAID, SELFPAY ==
[2020-03-20 12:41] VITALS: BMI 30.1
[2020-04-07 20:47] VITALS: BMI 28.8
--- NOTE | 2020-04-18 11:06 | PFT ---
INTRODUCTION: The patient is a 59-year-old male that presents for pulmonary function studies secondary to a diagnosis of shortness of breath. Respiratory therapy reports good patient effort. Bronchodilators were used during testing. INTERPRETATION: Forced expiration spirometry demonstrates the presence of a moderate large airways obstructive ventilatory defect. There was no significant response to aerosolized bronchodilators, based upon strict ATS criteria. Spirograms are of good quality and do not plateau indicating slow emptying of the lungs. Body plethysmography was performed and revealed a decreased TLC to 5.1 L, 79% of predicted, indicative of a mild restrictive ventilatory impairment. The remainder of the lung volumes are symmetrically reduced. Diffusing capacity by single breath CO is reduced at 63% of predicted. IMPRESSION: Irreversible moderate mixed ventilatory defect with mild reduction in diffusing capacity.
== END ==
PROVIDERS: PCP Nurse Practitioner Family; Referring Provider Nurse Practitioner Family; Visit Provider Nurse Practitioner Family
DX: I71.2 Thoracic aortic aneurysm, without rupture (principal)
CPT/HCPCS: 94060; 94726; 94729

== ENCOUNTER 2020-09-06 23:18 | Inpatient (IN) | payer MEDICARE, MEDICAID, SELFPAY ==
[2020-09-06 23:20] VITALS: BP 117/73; PULSE 132; RESP 25; TEMP 39.1; O2SAT 93; BMI 26.7
[2020-09-06 23:44] VITALS: BP 105/59; PULSE 121; RESP 15; O2SAT 95
--- NOTE | 2020-09-06 23:44 | RAD_ITS ---
STUDY: X-RAY CHEST REASON FOR EXAM: Male, 60 years old. Weakness, fever. TECHNIQUE: AP COMPARISON: 04/07/2020. FINDINGS: Status post median sternotomy. The lungs are clear and expanded. There is no demonstrated pleural abnormality. Normal size heart. Normal mediastinum and capo. Normal visualized pulmonary arteries. Normal visualized aortic arch and descending thoracic aorta. Normal visualized thoracic spine. Normal visualized ribs, clavicles, and shoulders. There is no demonstrated abnormality of the visualized soft tissue structures of the upper abdomen. RAD/Chest 1 View (Portable) IMPRESSION: Interval median sternotomy. No focal lung consolidative changes. Electronically Signed: Luis Alfredo Nagy, at 1:02 EDT Tel , Service support ,
--- NOTE | 2020-09-06 23:44 | EKG12_ITS ---
Test Reason : FALL Blood Pressure : / mmHG Vent. Rate : 130 BPM Atrial Rate : 130 BPM P-R Int : 136 ms QRS Dur : 100 ms QT Int : 304 ms P-R-T Axes : 070 -48 091 degrees QTc Int : 447 ms Sinus tachycardia Incomplete right bundle branch block Left anterior fascicular block Nonspecific ST and T wave abnormality Abnormal ECG Confirmed by JAMES PAZ, [place] ([id number]), newspaper editor TATUM EM ([id number]) on 09/09/2020 12:40:34 PM Referred By: AMOR Confirmed By:PHOENIX RAMIREZ MD
[2020-09-06 23:54] LABS: Absolute Lymphocyte Count 0.31 X10^3/uL (0.83-4.51); Absolute Neutrophil Count 10.1 X10^3/uL (2.0-7.7); Basophil# 0.01 X10^3/uL; Basophil% 0.1 % (0-1); Hematocrit 33.8 % (40-54); Hemoglobin 10.4 g/dL (13.0-16.5); Lymphocyte # 0.31 X10^3/ul (4.0); Lymphocyte % 2.6 % (19-41); Mean Corp Hgb Conc 30.8 g/dL (32-36); Mean Corpuscular Volume 78.1 fL (80-94); Mean Platelet Vol. 10.8 fl (6.2-12.0); Monocyte# 1.27 X10^3/uL; Monocyte% 10.8 % (0-10); NRBC Flagged by Analyzer 0 % (0-5); Neutrophil # 10.14 X10^3/uL (2.7-7.7); Neutrophil % 85.9 % (47-70); POSITIVE DIFFERENTIAL YES; POSITIVE MORPHOLOGY YES; Platelet Count 196 K/mm3 (150-450); RBC Distribution Width CV 17.5 % (11.6-14.6); RBC Distribution Width SD 49.6 fl (35.1-43.9); Red Blood Count 4.33 M/mm3 (4.6-6.2); White Blood Count 11.8 K/mm3 (4.4-11.0)
[2020-09-07] VITALS (20 sets, daily range): BP systolic 87–118; BP diastolic 49–74; PULSE 85–124; RESP 15–24; TEMP 36.7–37.9; O2SAT 91–97; BMI 26.4; BMI 26.5
[2020-09-07 00:02] LABS: Differential Indicated SCAN CRITERIA MET
[2020-09-07 00:06] LABS: ALB/GLOB Ratio 0.5 RATIO (0.9-2.4); AST(SGOT) 18 U/L (15-37); Alanine Aminotransfer ALT/SGPT 18 U/L (16-61); Albumin, Serum 2.4 g/dL (3.2-5.0); Alkaline Phosphatase 80 U/L (45-117); Anion Gap 10 (5-15); BUN 38 mg/dL (7-18); BUN/Creat Ratio 17.9 RATIO (10-20); Calcium,Total 8.8 mg/dL (8.5-10.1); Chloride 97 mmol/L (98-107); Creatinine, Serum 2.12 mg/dL (0.70-1.30); EST Glomerular Filtration Rate 34 mL/min (>60); Est Glom Filt Rate - Afr Amer 41 mL/min (>60); Estimated Creatinine Clearance 36.59 ml/min; Globulin 4.5 g/dL (2.2-4.2); Glucose 133 mg/dL (74-106); Lactic Acid 1.8 mmol/L (0.4-1.9); Potassium 3.7 mmol/L (3.5-5.1); Protein, Total 6.9 g/dL (6.4-8.2); Sodium Level 129 mmol/L (136-145)
[2020-09-07 00:09] LABS: International Normalized Ratio 1.4; Prothrombin Time (Protime)PT. 16.7 SECONDS (11.7-14.9)
[2020-09-07 00:10] LABS: Partial Thromboplast Time 33.3 Seconds (24.1-36.2)
[2020-09-07] MEDS: Acetaminophen 500 MG Tablet 1000 MG PO (00:22)
--- NOTE | 2020-09-07 00:36 | ED.VISSUMM ---
- ER Visit Summary Date of Service: 09/07/20 Chief Complaint: Fell out of bed History of Present Illness: The patient is a [address] Mullins. He reports that tonight he fell out of bed. He denies any blow to head or loss of consciousness. He is on Coumadin. He denies headache. He denies any shoulder, wrist, or hip pain. Patient has a fever to 102.3 degrees here. He reports he has had subjective fever and chills over the course the past 2 days. He reports he has been mildly short of breath. However, he denies cough. He reports he is had abdominal pain with nausea and not much vomiting. His last bowel was 2 days ago. Typically goes every other day. He is had dysuria for a while. Patient denies any sick contacts. No known covert exposure. He does wear a mask. Physical Examination: Vitals: 102.3, 117/73, 132, 25, 93% on room air which is not hypoxic. General: Well-nourished and well-developed. Head: Normocephalic atraumatic. Neck: Supple, no lymphadenopathy. No JVD. Nontender. Cardiovascular: Regular rate and rhythm. No murmurs. Respiratory: No respiratory distress. Clear to auscultation bilaterally. Poor air movement. Abdominal: Soft, nontender, nondistended, normal bowel sounds. No guarding, rebound, or peritoneal signs. Back: Nontender. Extremities: Nontender, 1+ pitting edema lower extremities bilaterally. Skin: Normal color, no rash. Neurologic: Alert and oriented ?3. Cranial nerves II through XII are intact. Normal strength and sensation. Psych: Normal affect. Test Results: EKG is sinus tach at 130 with an incomplete right bundle branch block and nonspecific ST changes. The only change from March of this year is the rate. CBC shows a white count of 11.8 with an H&H 10.4 and 33.8, segment neutrophils 80, lymphocytes of 3, monocytes of 11. Chem-7 shows a sodium 129, chloride 97, glucose 133, BUN 38, creatinine 2.12. Baseline creatinine in 2019 is 1.44?1.57. LFTs show total bili of 1.3, albumin 2.4, globulin 4.5. INR is 1.4 with PTT 33.3. UA shows greater than 100 whites and 4+ bacteria. This was sent for culture. COVID-19 is pending. Clinical Impression(s) from Imaging Studies Chest X-Ray 09/06/20 23:44 IMPRESSION: Interval median sternotomy. No focal lung consolidative changes. Electronically Signed: Luis Alfredo Nagy, at 1:02 EDT Tel , Service support , Emergency Department Course and Treatment: Patient had an IV placed. Is given a 1 L bolus of normal saline. He is given Tylenol p.o. He is resting more comfortably. He was given Rocephin IV. Treatment Plan: Patient was discussed with Dr. Cruz. He will be admitted to the hospital for further evaluation and treatment. Disposition: Improved but serious condition. Impression: 1. Sepsis. 2. Pyelonephritis. 3. NOLAN. This note was generated with [employer] dictation software. It may contain incorrect words, spelling, and punctuation that were not noted in review of the chart prior to signing ED Disposition - Plan for ED Patient: Referrals: Daya Jay [employer]ESSMAKER OR TAILOR, [employer]ESSMAKER OR TAILOR-C [Primary Care Provider] -
[2020-09-07 01:50] LABS: Mucous, Urine 0 SEEN /hpf (<or=2+); Squamous Epithelial Cells - UA 0 SEEN /hpf (0-5)
[2020-09-07 01:53] LABS: Color, Urine Yellow (Yellow); Glucose, Dipstick Normal (Normal); Ketone-Dipstick Negative (Negative); Leukocyte Esterase-Dipstick 500 /ul (Negative); Nitrite-Dipstick Negative (Negative); Occult Blood-Urine 250 /ul (Negative); Protein-Dipstick 100 mg/dl (Negative); Specific Gravity, Urine 1.015 (1.002-1.030); Urine Clarity Cloudy (Clear); Urine Urobilinogen 8 mg/dl (Normal)
[2020-09-07 01:59] LABS: Urine Bilirubin Dipstick 1 mg/dL (Negative)
[2020-09-07 02:00] LABS: White Blood Cells >100 SEEN /hpf (0-5)
[2020-09-07 02:01] LABS: Bacteria 4+ /hpf (None Seen); Red Blood Cells-Urine 0-5 SEEN /hpf (0-5)
[2020-09-07 02:02] LABS: Amorphous Sediment 1+; Transitional Epithelial - Ur 0-5 SEEN /hpf (0-5)
--- NOTE | 2020-09-07 02:20 | HP.PCM_ITS ---
Problem List (1) Sepsis Status: Acute Qualifiers: Sepsis type: sepsis due to unspecified organism Sepsis acute organ dysfunction status: unspecified Qualified Code(s): A41.9 - Sepsis, unspecified organism (2) UTI (urinary tract infection) Status: Acute Qualifiers: Urinary tract infection type: site unspecified (3) NOLAN (acute kidney injury) Status: Acute (4) Hyponatremia Status: Acute (5) Anemia Status: Acute Qualifiers: Anemia type: unspecified type Qualified Code(s): D64.9 - Anemia, unspecified (6) GERD (gastroesophageal reflux disease) Status: Chronic Qualifiers: Esophagitis presence: esophagitis presence not specified Qualified Code(s): K21.9 - Gastro-esophageal reflux disease without esophagitis (7) Anxiety and depression Status: Chronic (8) Stented coronary artery Status: Chronic Comment: 3.5X18 mm BMS to proximal mid LAD per Dr. Good Jones @ [facility] 03/03/2012. (9) Atherosclerosis of coronary artery of [place] heart Status: Chronic Qualifiers: Coronary Disease-Associated Artery/Lesion type: unspecified vessel or lesion type Associated angina: without angina Qualified Code(s): I25.10 - Atherosclerotic heart disease of [place] coronary artery without angina pectoris (10) Dilated aortic root Status: Chronic Comment: Noted on [facility] done 01/14/[address] Good Jones (11) Essential hypertension Status: Chronic (12) Hyperlipidemia Status: Chronic Qualifiers: Hyperlipidemia type: unspecified Qualified Code(s): E78.5 - Hyperlipidemia, unspecified (13) Diabetes mellitus, type II Status: Chronic Qualifiers: Diabetes mellitus snf insulin use: without lobsterman use Diabetes mellitus complication status: with other specified complication Qualified Code(s): E11.69 - Type 2 diabetes mellitus with other specified complication (14) COPD (chronic obstructive pulmonary disease) Status: Chronic Qualifiers: COPD type: unspecified COPD Qualified Code(s): J44.9 - Chronic obstructive pulmonary disease, unspecified (15) Tobacco use Status: Chronic History of Present Illness Date of Admission: 09/07/20 Chief Complaint: Fever, chills, nausea, emesis, dysuria The patient is a 60 y/o M w/ PMHx: Chronic COPD, Tobacco use, HTN, HLD, CAD s/p PCI, Known AAA s/p repair 06/2020 with concurrent AVR, CKD stage III, Anxiety and Depression/Bipolar disorder who presents to the [facility] ED on 09/07/20 with history of ongoing subjective fever and chills with recent abdominal discomfort/suprapubic discomfort with dysuria and no nausea with dry heaving x 48 hours, not improving but was so weak that he fell out of bed. Patient denies any recent ill contacts including any potential sick COVID contacts. Work-up in the ED included T 102.3, heart rate initially 132, BP 117/73, respiratory rate 25, 93% on room air, CBC with WBC 11.8, hemoglobin 10.4, platelet 196 with left shift and concurrent lymphopenia, coags with PT 16.7, INR 1.4, PTT 33.3, CMP with sodium 129, chloride 97, BUN/creatinine 38/2.12, glucose 133, lactic acid 1.8, total bilirubin 1.30, EKG with sinus tachycardia with incomplete right bundle branch block with nonspecific ST changes, chest x-ray with interval median sternotomy evident, no acute cardiopulmonary findings otherwise, urinalysis with specific gravity 1.015, protein 100, occult blood 250, negative nitrite, 500 leukocyte esterase, greater than 100 urine WBCs, urine bacteria 4+, COVID pending. In the ED patient ministered normal saline as well as Tylenol therapy. Past Medical History Past Medical History (Chronic Problems): Chronic Problems GERD (gastroesophageal reflux disease) (Chronic) Anxiety and depression (Chronic) Stented coronary artery (Chronic 03/03/12) 3.5X18 mm BMS to proximal mid LAD per Dr. Good Jones @ [facility] 03/03/2012. Atherosclerosis of coronary artery of [place] heart (Chronic) History of left heart catheterization (Chronic 03/21/20) 06/17/2009; no obstructive disease; 03/03/2012 (followed by PCI of LAD); 01/14/2016 (patent stents in LAD, nonobstructive disease) done @ [facility] in [place], [place] per Dr. Philippe Jones. 03/21/2020:Global LV systolic dysfunction- Mild; LVEF: by LV gram 55 %. Elevated Left Ventricular End Diastolic Pressure. Non obstructive coronary arteries. Widely patent LAD stent. Aortic Root Aneurysm Aortic Valve Insufficiency Mild Dilated aortic root (Chronic) Noted on [facility] done 01/14/[address] Good Jones Essential hypertension (Chronic) Hyperlipidemia (Chronic) Diabetes mellitus, type II (Chronic) COPD (chronic obstructive pulmonary disease) (Chronic) Tobacco use (Chronic) Medical History: Medical History (Last Reviewed 01/15/20 @ 09:06 by Autumn Silverio) Atherosclerosis of coronary artery of [place] heart (Chronic) I25.10 Dilated aortic root (Chronic) I77.810 Noted on [facility] done 01/14/[address] Good Jones Essential hypertension (Chronic) I10 Hyperlipidemia (Chronic) E78.5 Diabetes mellitus, type II (Chronic) E11.9 COPD (chronic obstructive pulmonary disease) (Chronic) J44.9 Tobacco use (Chronic) Z72.0 GERD (gastroesophageal reflux disease) K21.9 Allergies No Known Allergies Allergy (Verified 04/07/20 20:50) Home Medications: Ambulatory Orders Medication Instructions Recorded omeprazole 40 mg capsule,delayed 40 mg PO DAILY 01/11/20 release aspirin 81 mg tablet,delayed 81 mg PO DAILY #90 tab 01/15/20 release atorvastatin 80 mg tablet 80 mg PO QHS #90 tab 01/15/20 bupropion HCl 150 mg 24 hr tablet, 150 mg PO QAM 01/15/20 extended release clopidogrel 75 mg tablet 75 mg PO DAILY 01/15/20 risperidone 1 mg tablet 1 mg PO QHS 01/15/20 Ergocalciferol [Vitamin D] 1 cap PO QWEEK 09/07/20 Surgical History: Surgical History (Last Updated 03/21/20 @ 11:36 by Autumn Silverio) Stented coronary artery (Chronic) Onset Date: 03/03/12 Z95.5 3.5X18 mm BMS to proximal mid LAD per Dr. Good Jones @ [facility] 03/03/2012. History of left heart catheterization (Chronic) Onset Date: 03/21/20 Z98.890 06/17/2009; no obstructive disease; 03/03/2012 (followed by PCI of LAD); 01/14/2016 (patent stents in LAD, nonobstructive disease) done @ [facility] in [place], [place] per Dr. Philippe Jones. 03/21/2020:Global LV systolic dysfunction- Mild; LVEF: by LV gram 55 %. Elevated Left Ventricular End Diastolic Pressure. Non obstructive coronary arteries. Widely patent LAD stent. Aortic Root Aneurysm Aortic Valve Insufficiency Mild Surgical History: - - Recent aortic aneurysm repair and aortic valve repair concurrently, PCI with bare-metal stent prior. Psychiatric History: No pertinent psych hx Lives: Spouse/ Significant Other - Lives with his girlfriend and notes that also his [id number] lives with him. Smoking Status: Current every day smoker - Patient with ongoing approximate 2 cigarette/day tobacco usage. Tobacco Use: Cigarettes Alcohol: None Drugs: None - *Family History Maternal Family History: Family History (Last Updated 01/15/20 @ 09:17 by Autumn Silverio) Unknown No problems noted. History Items: - - Patient notes he is adopted and does not know any of his maternal or paternal family history. Paternal Family History: Family History (Last Updated 01/15/20 @ 09:17 by Autumn Silverio) Unknown No problems noted. History Items: - - Patient notes he is adopted and does not know any of his maternal or paternal family history. Review of Systems Constitutional: Reports: Anorexia, Chills, Fever, Malaise, Weakness, Fatigue. Denies: Weight Change HEENT: Denies: Head Aches, Sinus Congestion, Sinus Drainage Cardiovascular: Denies: Chest Pain, Palpitations Respiratory: Denies: Cough, Shortness of Breath, Shortness of breath at rest, Shortness of breath upon exertion, Sputum production Gastrointestinal: Reports: Abdominal Pain, Nausea, Vomiting Genitourinary: Reports: Dysuria Musculoskeletal: Reports: Joint Pain. Denies: Joint Tenderness Skin: Denies: Rash, Wounds Neurological: Denies: Numbness, Tingling, Focal weakness Psychiatric: Denies: Anxiety, Depression, Homicidal Ideations, Suicidal Ideations Hematologic/ Lymphatic: Reports: Anemia. Denies: Easy Bruising, Easy Bleeding VTE Information - Inpt Only VTE Present on Admission: No VTE Mechan Device Prophylaxis: SCD's VTE Pharm Prophylaxis ordered?: Yes Patient Problems: Active and Suspected Problems (Last Reviewed 01/15/20 @ 09:06 by Autumn Silverio) Sepsis (Acute) UTI (urinary tract infection) (Acute) NOLAN (acute kidney injury) (Acute) Hyponatremia (Acute) Anemia (Acute) Subjective: Patient seated upright in the ED bed, fatigued and ill-appearing. Objective: Physical Examination: General: awake, alert, oriented x 3 and cooperative, seated upright in the ED bed in no apparent distress but fatigued and ill-appearing. Skin: normal color, turgor, no icterus, cyanosis, healed chest incision status post recent valve repair and aortic aneurysm repair. HEENT: AT/NC, EOMI, PERRLA, dry MM, no carotid bruits or JVD noted. Lungs: CTA bilaterally, moderate effort, moderate decrease BL bases, no rales, ronchi or wheezing. Heart: Tachycardic with regular rhythm; no gallop, rub audible. Abdomen: soft, suprapubic discomfort and lower quadrant discomfort with palpation, no rebound or guarding, ND, hyperactive BS, no HSM. Extremities: no cyanosis, clubbing, or edema. Neurological: patient awake, alert, oriented x 3; cognitive function intact; pupils equally reactive to light and accomodation; cranial nerves II-XII grossly normal, moving all 4 extremities, no focal deficits, strength moderately global decrease secondary to acute presentation. Psychiatric: affect appears ill, fatigued, no acute evidence of depressive or anxiety feelings. - Physical Exam Vitals/I&O's: Vital Signs Temp Pulse Resp BP Pulse Ox 98.9 F 104 H 22 H 94/71 97 09/07/20 01:50 09/07/20 01:00 09/07/20 01:00 09/07/20 01:00 09/07/20 01:00 Oxygen Delivery Method Room Air Weight: 181 lb 3.52 oz Body Mass Index (BMI) 26.7 Intake and Output for Last 24 Hours 09/05/20 09/06/20 09/07/20 23:59 23:59 23:59 Intake Total 500 / 500 Balance 500 / 500 Laboratory Results 09/06/20 23:30: WBC 11.8 H, RBC 4.33 L, Hgb 10.4 L, Hct 33.8 L, MCV 78.1 L, MCH 24.0 L, MCHC 30.8 L, RDW Std Deviation 49.6 H, RDW Coeff of Sincere 17.5 H, Plt Count 196, MPV 10.8, Immature Gran % (Auto) 0.600, Neut % (Auto) 85.9 H, Lymph % (Auto) 2.6 L, Blair % (Auto) 10.8 H, Eos % (Auto) 0.0, Baso % (Auto) 0.1, Absolute Neuts (auto) 10.1 H, Absolute Lymphs (auto) 0.31 L, Nucleated RBC % 0, Differential Comment COMMENT 09/06/20 23:30: PT 16.7 H, INR 1.4, APTT 33.3 09/06/20 23:30: Sodium 129 L, Potassium 3.7, Chloride 97 L, Carbon Dioxide 22.0, Anion Gap 10, BUN 38 H, Creatinine 2.12 H, Estim Creat Clear Calc 36.59, Est GFR (MDRD) Af Amer 41 L, Est GFR (MDRD) Non-Af 34 L, BUN/Creatinine Ratio 17.9, Glucose 133 H, Calcium 8.8, Total Bilirubin 1.30 H, AST 18, ALT 18, Alkaline Phosphatase 80, Total Protein 6.9, Albumin 2.4 L, Globulin 4.5 H, Albumin/Globulin Ratio 0.5 L 09/06/20 23:30: Lactic Acid 1.8 09/06/20 23:55: COVID-19 (JANY) Pending 09/07/20 01:44: Urine Color Yellow, Urine Clarity Cloudy, Urine pH 6.0, Ur Specific [place] 1.015, Urine Protein 100 H, Urine Glucose (UA) Normal, Urine Ketones Negative, Urine Occult Blood 250 H, Urine Nitrite Negative, Urine Bilirubin 1 H, Urine Urobilinogen 8 H, Ur Leukocyte Esterase 500 H, Urine RBC 0- 5 SEEN, Urine WBC >100 SEEN, Ur Squamous Epith Cells 0 SEEN, Ur Transition Epith Cell 0-5 SEEN, Amorphous Sediment 1+, Urine Bacteria 4+, Urine Mucus 0 SEEN Current Medications Ceftriaxone Sodium (Rocephin) 1 gm in 50 mls @ 100 mls/hr IV X1 ONE Stop: 09/07/20 02:40 Assessment/Plan All Active Problems (Last Reviewed 01/15/20 @ 09:06 by Autumn Silverio) Sepsis (Acute) UTI (urinary tract infection) (Acute) NOLAN (acute kidney injury) (Acute) Hyponatremia (Acute) Anemia (Acute) The patient is a 60 y/o M w/ PMHx: Chronic COPD, Tobacco use, HTN, HLD, CAD s/p PCI, Known AAA s/p repair 06/2020 with concurrent AVR, CKD stage III, Anxiety and Depression/Bipolar disorder who presents to the [facility] ED on 09/07/20 with history of ongoing subjective fever and chills with recent abdominal discomfort/suprapubic discomfort with dysuria and no nausea with dry heaving x 48 hours, not improving but was so weak that he fell out of bed. Patient denies any recent ill contacts including any potential sick COVID contacts. 1. Acute Sepsis secondary to Acute Complicated Urinary Tract Infection, Possible Acute Pyelonephritis: Will admit to PCU given low BPs, UA upon ED evaluation remarkable, pending UCx, admission CBC w/ WBC 11.8 with L shift, continue IVFs, monitor I/Os, continue IV Rocephin w/ transition as able pending sensitivities and speciation. Bld cx x 2 obtained in the ED. If not improving or worsening may necessitate CT. 2. Acute kidney injury on CKD stage III: Secondary to #1. Admission BUN/Cr 38/2.12, prior baseline creatinine noted to be 1.4-1.55. Will hydrate, hold nephrotoxic medications and repeat chemistry in AM. If no improvement would plan FeNa assessment and renal US. 3. Hyponatremia, hypovolemic suspected: Admission Na 129, prior levels normal, suspected secondary to #1, #2, continue judicious hydration, trend BMP. 4. Microcytic anemia, unclear chroniticy, possibly new onset: Admission hemoglobin 10.4, MCV 78.1, most recent [employer] comparison 04/07/2020 with hemoglobin 14.7, noted to be on aspirin and Plavix therapy, will obtain iron panel, ferritin, guaiac. 5. Chronic COPD exacerbation: CXR w/ chronic changes, maintain on oxygen with wean as tolerated to room air, continue ATC duonebs, PRN albuterol, encourage HOB, IS. 6. 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 Preop catheterization 03/21/20 performed. 06/2020 AAA repair and aortic valve repair concurrently. 7. CAD: s/p 02/2012 bare-metal integrity stent to his proximal/mid LAD, most recent 03/21/20 catheterization for preoperative AAA repair evaluation w/ no obstructive irregularities demonstrated with referral for repair, continue aspirin, Plavix, statin therapy. 8. ? Diabetes mellitus type II: History, not on regimen, will obtain A1c to be cautious, maintain on cardiac diet pending A1c, if elevated add accu checks w/ ISS and transition to ADA diet. 9. Hypertension: Not on regimen, BP low normal in the ED, will continue to monitor if appropriate add regimen. 10. Hyperlipidemia: Continue home statin regimen. 11. Anxiety and depression/Bipolar disorder: We will continue home bupropion regimen as well as risperidone. 12. Tobacco Abuse: Encouraged cessation, inpatient consultation per RT, NR if desired. 13. GERD: We will continue home PPI. 14. DVT prophylaxis: SCDs, heparin cautiously with close CBC monitoring. 15. CODE status: Patient does not have healthcare power of deputy commonwealth's attorney nor living will in place. He notes that if he did have a decision-maker it would be his [id number] February. Discussed importance of him setting up a living will and healthcare power of deputy commonwealth's attorney with encouragement to discuss these items with case management/social work. Discussed CODE status at length including difference between FULL code, DNR-CCA and DNR-CC status. Following discussions about the differences in these status, requested Full Code status. Advanced Care Planning Face to Face Time: 16 minutes. Inpatient E&M: 38550 Init Hosp L3 Procedures: 48523 Advncd Care Plan 30 Min
[2020-09-07] MEDS: Ceftriaxone 1 GM/50 ML BAG IV (02:33)
[2020-09-07] MEDS: Ondansetron 4 MG/2 ML Vial IV ×2 (02:33→05:55)
[2020-09-07] MEDS: 0.9% Normal Saline 1,000 ML 999 ML IV (02:34)
[2020-09-07] MEDS: 0.9% Normal Saline 1,000 ML 150 ML IV ×3 (04:15→21:09)
[2020-09-07 05:24] LABS: Absolute Lymphocyte Count 0.36 X10^3/uL (0.83-4.51); Absolute Neutrophil Count 6.6 X10^3/uL (2.0-7.7); Basophil# 0.01 X10^3/uL; Basophil% 0.1 % (0-1); Hematocrit 34.3 % (40-54); Hemoglobin 9.2 g/dL (13.0-16.5); Lymphocyte # 0.36 X10^3/ul (4.0); Lymphocyte % 4.6 % (19-41); Mean Corp Hgb Conc 26.8 g/dL (32-36); Mean Corpuscular Hgb 23.4 pg (27.0-32.0); Mean Corpuscular Volume 87.1 fL (80-94); Mean Platelet Vol. 10.7 fl (6.2-12.0); Monocyte# 0.78 X10^3/uL; NRBC Flagged by Analyzer 0 % (0-5); Neutrophil # 6.61 X10^3/uL (2.7-7.7); Neutrophil % 84.7 % (47-70); POSITIVE DIFFERENTIAL YES; POSITIVE MORPHOLOGY YES; Platelet Count 157 K/mm3 (150-450); RBC Distribution Width CV 17.8 % (11.6-14.6); RBC Distribution Width SD 57.3 fl (35.1-43.9); Red Blood Count 3.94 M/mm3 (4.6-6.2); White Blood Count 7.8 K/mm3 (4.4-11.0)
[2020-09-07 05:30] LABS: Differential Indicated SCAN CRITERIA MET
[2020-09-07 05:48] LABS: ALB/GLOB Ratio 0.5 RATIO (0.9-2.4); AST(SGOT) 19 U/L (15-37); Alanine Aminotransfer ALT/SGPT 15 U/L (16-61); Alkaline Phosphatase 69 U/L (45-117); Anion Gap 9 (5-15); BUN 39 mg/dL (7-18); BUN/Creat Ratio 19.4 RATIO (10-20); Calcium,Total 8.2 mg/dL (8.5-10.1); Chloride 102 mmol/L (98-107); Creatinine, Serum 2.01 mg/dL (0.70-1.30); EST Glomerular Filtration Rate 36 mL/min (>60); Est Glom Filt Rate - Afr Amer 44 mL/min (>60); Estimated Creatinine Clearance 38.59 ml/min; Glucose 127 mg/dL (74-106); Potassium 3.8 mmol/L (3.5-5.1); Sodium Level 133 mmol/L (136-145)
[2020-09-07 05:53] LABS: Crenated RBC 1+; Platelet Estimate ADEQUATE (ADEQ)
[2020-09-07 06:25] LABS: Ferritin 409 ng/mL (26-388); Iron 14 ug/dL (65-175); Iron Binding Capacity,Total 160 ug/dL (250-450); PERCENT IRON SATURATION 8.8 % (15.0-55.0)
[2020-09-07] MEDS: Ipratropium/Albuterol Sulfate 3 ML AMPUL.NEB INHALATION ×2 (06:50→13:22)
[2020-09-07 07:12] LABS: Hemoglobin A1c 5.6 % (3.8-5.6)
[2020-09-07] MEDS: proCHLORPERazine 10 MG/2 ML Vial 5 MG IV (07:32)
[2020-09-07] MEDS: Heparin Injection (Vial) 5,000 UNIT/ML VIAL 5000 UNIT SC ×2 (09:22→21:10)
[2020-09-07] MEDS: Pantoprazole Sodium 40 MG Tablet PO (09:22)
[2020-09-07] MEDS: Clopidogrel Bisulfate 75 MG Tablet PO (09:22)
[2020-09-07] MEDS: buPROPion (XL) 150 MG TABLET.XL PO (09:22)
[2020-09-07] MEDS: Aspirin E.C. 81 MG Tablet PO (09:22)
--- NOTE | 2020-09-07 11:58 | PN_ITS ---
<Izzy Mora [employer]ER - Last Filed: 09/07/20 12:16> Patient Problems: Active and Suspected Problems (Last Reviewed 01/15/20 @ 09:06 by Autumn Silverio) Sepsis (Acute) UTI (urinary tract infection) (Acute) NOLAN (acute kidney injury) (Acute) Hyponatremia (Acute) Anemia (Acute) Subjective: Patient seen and examined. Fever improved. Reports nausea, vomiting. Denies abdominal pain, diarrhea. - Physical Exam Vitals/I&O's: Vital Signs Temp Pulse Resp BP Pulse Ox 98.8 F 107 H 20 H 93/58 L 96 09/07/20 11:39 09/07/20 11:39 09/07/20 11:39 09/07/20 11:39 09/07/20 11:39 Oxygen Flow Rate (L/min) 2 Oxygen Delivery Method Room Air Weight: 179 lb 3.773 oz Body Mass Index (BMI) 26.4 Intake and Output for Last 24 Hours 09/05/20 09/06/20 09/07/20 23:59 23:59 23:59 Intake Total 3030 / 3030 Balance 3030 / 3030 General: Alert, Oriented x3, Cooperative HEENT: Atraumatic, PERRLA, EOMI, Normocephalic Neck: Supple, No JVD, Negative Carotid Bruits Lungs: Clear to auscultation, Normal air movement Cardiovascular: Regular Rhythm, No murmurs, Tachycardic Abdomen: Bowel Sounds Present, Soft, Non Tender, Non-Distended Extremities: No clubbing, No cyanosis, No edema, Capillary Refill Less than 3 Seconds Skin: No rashes, No breakdown Musculoskeletal: No Tenderness to Palpation of Joints or Extremities Neurological: Cranial nerves II-XII grossly intact, Neuro grossly intact Psych/Mental Status: Normal Affect, Appropriate Microbiology Past 72 Hours 09/07/20 00:02 Blood Culture (Wb) - Right Hand Blood Culture - Preliminary 09/06/20 23:30 Blood Culture (Wb) - Left Hand Blood Culture - Preliminary 09/07/20 01:44 Urine, Catheterized Urine Culture - Preliminary Presumptive E. coli Laboratory Results 09/06/20 23:30: WBC 11.8 H, RBC 4.33 L, Hgb 10.4 L, Hct 33.8 L, MCV 78.1 L, MCH 24.0 L, MCHC 30.8 L, RDW Std Deviation 49.6 H, RDW Coeff of Sincere 17.5 H, Plt Count 196, MPV 10.8, Immature Gran % (Auto) 0.600, Neut % (Auto) 85.9 H, Lymph % (Auto) 2.6 L, [place] % (Auto) 10.8 H, Eos % (Auto) 0.0, Baso % (Auto) 0.1, Absolute Neuts (auto) 10.1 H, Absolute Lymphs (auto) 0.31 L, Nucleated RBC % 0, Differential Comment COMMENT 09/06/20 23:30: PT 16.7 H, INR 1.4, APTT 33.3 09/06/20 23:30: Sodium 129 L, Potassium 3.7, Chloride 97 L, Carbon Dioxide 22.0, Anion Gap 10, BUN 38 H, Creatinine 2.12 H, Estim Creat Clear Calc 36.59, Est GFR (MDRD) Af Amer 41 L, Est GFR (MDRD) Non-Af 34 L, BUN/Creatinine Ratio 17.9, Glucose 133 H, Calcium 8.8, Total Bilirubin 1.30 H, AST 18, ALT 18, Alkaline Phosphatase 80, Total Protein 6.9, Albumin 2.4 L, Globulin 4.5 H, Albumin/Globulin Ratio 0.5 L 09/06/20 23:30: Lactic Acid 1.8 09/06/20 23:55: COVID-19 (JANY) Not Detected 09/07/20 00:02: Magnesium 2.0, Iron 14 L, TIBC 160 L, Iron Saturation 8.8 L, Ferritin 409 H 09/07/20 00:02: Hemoglobin A1c 5.6 09/07/20 01:44: Urine Color Yellow, Urine Clarity Cloudy, Urine pH 6.0, Ur Specific [place] 1.015, Urine Protein 100 H, Urine Glucose (UA) Normal, Urine Ketones Negative, Urine Occult Blood 250 H, Urine Nitrite Negative, Urine Bilirubin 1 H, Urine Urobilinogen 8 H, Ur Leukocyte Esterase 500 H, Urine RBC 0- 5 SEEN, Urine WBC >100 SEEN, Ur Squamous Epith Cells 0 SEEN, Ur Transition Epith Cell 0-5 SEEN, Amorphous Sediment 1+, Urine Bacteria 4+, Urine Mucus 0 SEEN 09/07/20 04:56: WBC 7.8, RBC 3.94 L, Hgb 9.2 L, Hct 34.3 L, MCV 87.1 D, MCH 23.4 L, MCHC 26.8 L D, RDW Std Deviation 57.3 H, RDW Coeff of Sincere 17.8 H, Plt Count 157, MPV 10.7, Immature Gran % (Auto) 0.600, Neut % (Auto) 84.7 H, Lymph % (Auto) 4.6 L, [place] % (Auto) 10.0, Eos % (Auto) 0.0, Baso % (Auto) 0.1, Absolute Neuts (auto) 6.6, Absolute Lymphs (auto) 0.36 L, Nucleated RBC % 0, Differential Comment COMMENT, Platelet Estimate ADEQUATE, Crenated Cell 1+ 09/07/20 04:56: Sodium 133 L, Potassium 3.8, Chloride 102, Carbon Dioxide 22.0, Anion Gap 9, BUN 39 H, Creatinine 2.01 H, Estim Creat Clear Calc 38.59, Est GFR (MDRD) Af Amer 44 L, Est GFR (MDRD) Non-Af 36 L, BUN/Creatinine Ratio 19.4, Glucose 127 H, Calcium 8.2 L, Total Bilirubin 1.10 H, AST 19, ALT 15 L, Alkaline Phosphatase 69, Total Protein 6.0 L, Albumin 2.0 L, Globulin 4.0, Albumin/Globulin Ratio 0.5 L Current Medications Acetaminophen (Tylenol) 650 mg PO Q6H PRN PRN PRN Reason: Pain Score 1-10/Temp > 100.7 F Al Hydroxide/Mg Hydroxide (Mylanta Ii) 30 ml PO Q6H PRN PRN PRN Reason: Gastric Burning Albuterol Sulfate (Ventolin Aerosols) 2.5 mg INHALATION Q2H PRN PRN PRN Reason: Dyspnea, wheezing Albuterol/Ipratropium (Duoneb) 3 ml INHALATION Q6HWA.RT [facility] Last Admin: 09/07/20 06:50 Dose: 3 ml Documented by: Aspirin (Ecotrin) 81 mg PO DAILY [facility] Last Admin: 09/07/20 09:22 Dose: 81 mg Documented by: Atorvastatin Calcium (Lipitor) 80 mg PO QHS [facility] Bupropion HCl (Wellbutrin Xl) 150 mg PO QAM [facility] Last Admin: 09/07/20 09:22 Dose: 150 mg Documented by: Clopidogrel Bisulfate (Plavix) 75 mg PO DAILY [facility] Last Admin: 09/07/20 09:22 Dose: 75 mg Documented by: Guaifenesin (Robitussin) 20 ml PO Q4H PRN PRN PRN Reason: COUGH Heparin Sodium (Porcine) (Heparin Na) 5,000 unit SC Q12 [facility] Last Admin: 09/07/20 09:22 Dose: 5,000 unit Documented by: Sodium Chloride () 1,000 mls @ 150 mls/hr IV .[id number] [facility] Last Admin: 09/07/20 11:41 Dose: 150 mls/hr Documented by: Sodium Chloride () 250 mls @ 15 mls/hr IV .[id number] PRN PRN Reason: Saline Flush Sodium Chloride () 250 mls @ 15 mls/hr IV .[id number] PRN PRN Reason: Additional IVPB Infusion Ceftriaxone Sodium 2 gm/ (Sodium Chloride) 50 mls @ 100 mls/hr IV Q24 [facility] Influenza Virus Vaccine Quadrival (Flucelvax /Fluzone ) 0.5 ml IM .ONCE ONE Stop: 09/08/20 10:01 Magnesium Hydroxide (Milk Of Magnesia) 30 ml PO DAILY PRN PRN PRN Reason: Constipation Melatonin (Melatonin) 3 mg PO QHS PRN PRN PRN Reason: INSOMNIA Morphine Sulfate () 2 mg IV Q3H PRN PRN PRN Reason: Pain Score 6-10 Nitroglycerin (Nitrostat) 0.4 mg SUBLINGUAL Q5M PRN PRN Reason: CARDIAC/CHEST PAIN Ondansetron HCl (Zofran) 4 mg IV Q8H PRN PRN PRN Reason: NAUSEA/VOMITING Last Admin: 09/07/20 05:55 Dose: 4 mg Documented by: Oxycodone HCl (Oxyir) 5 mg PO Q4H PRN PRN PRN Reason: Pain Score 4-5 Pantoprazole Sodium (Protonix) 40 mg PO DAILY [facility] Last Admin: 09/07/20 09:22 Dose: 40 mg Documented by: Prochlorperazine Edisylate (Compazine Iv) 5 mg IV Q4H PRN PRN PRN Reason: Breakthrough Nausea/Vomiting Last Admin: 09/07/20 07:32 Dose: 5 mg Documented by: Psyllium Hydrophilic Mucilloid (Metamucil) 1 packet PO DAILY PRN PRN PRN Reason: Constipation Risperidone (Risperdal) 1 mg PO QHS [facility] Senna/Docusate Sodium (Senokot-S, Yazmin-Colace) 2 tablet PO BID PRN PRN PRN Reason: Constipation Sodium Chloride () 10 - 40 ml IV UD PRN PRN Reason: SALINE FLUSH Throat Lozenges (Cepacol Sore Throat Lozenge) 1 lozenge MUCOUS MEM Q2H PRN PRN PRN Reason: SORE THROAT Medical Necessity - Tobacco Use Smoking Status: Current every day smoker Tobacco Use: Cigarettes Assessment/Plan All Active Problems (Last Reviewed 01/15/20 @ 09:06 by Autumn Silverio) Sepsis (Acute) UTI (urinary tract infection) (Acute) NOLAN (acute kidney injury) (Acute) Hyponatremia (Acute) Anemia (Acute) 1. Acute sepsis secondary to acute complicated UTI with bacteremia and probable pyelonephritis-urine growing E. coli. Blood cultures preliminary growing gram- negative rods. Continue IV Rocephin. IV fluids per sepsis protocol. 2. Acute kidney injury on chronic kidney disease stage III-IV fluids, trend BMP. 3. Hypovolemic hyponatremia-improving. Continue IV fluids. Trend BMP. 4. Microcytic anemia-appears acute. Prior baseline hemoglobin in April 10. Stool for occult blood ordered. Trend CBC. Will place on IV PPI given unclear etiology. Iron studies show iron deficiency. IV Venofer x1 then begin iron supplementation. 5. Chronic COPD-no exacerbation. As needed albuterol aerosol. 6. Known a sending aortic aneurysm status post repair-patient underwent AAA repair and aortic valve repair June 2020. 7. CAD with history of stent-continue aspirin, Plavix, statin. 8. Type 2 diabetes mellitus-Per history. Hemoglobin A1c 5.6%. 9. Hypertension-stable, not on regimen. 10. Hyperlipidemia-continue statin. 11. Anxiety/depression/bipolar disorder-continue home bupropion and risperidone regimen. 12. Tobacco dependence-encouraged cessation. Nicotine replacement patch. 13. GERD-continue PPI. DVT prophylaxis-SCDs This patient was seen by ANDREW Adams under the supervision of Dr. Coronado. <Thai Coronado - Last Filed: 09/07/20 13:00> Objective: Patient admitted with fever and chills, low blood pressure and upper abdominal pain with UTI suggestive of pyelonephritis. Admitting temperature was 102.3 Fahrenheit. Currently 99.5. Low blood pressure, 99/59, map 72. Patient gave history of intermittent micturition, incomplete emptying of bladder, burning micturition, increased frequency and urgency. Denies previous history of kidney stone, tumor, stricture or urology procedure. No family history of kidney stone. Physical exam General: Alert, Oriented x3, Cooperative HEENT: Atraumatic, PERRLA, EOMI, Normocephalic Oral: No Gingival or Mucosal Lesions/ Ulcerations Neck: Supple, No JVD, Negative Carotid Bruits Lungs: Air entry diminished in bilateral lung bases. No crepitation/rhonchi Cardiovascular: Regular rate, Regular Rhythm, Normal S1, Normal S2, No murmurs Abdomen: Bowel Sounds Present, Soft, Non Tender, Non-Distended : Right angle tenderness more than left. No suprapubic tenderness. No purulent discharge per urethra. Extremities: No edema, Capillary Refill Less than 3 Seconds Skin: No rashes, No breakdown Musculoskeletal: No Tenderness to Palpation of Joints or Extremities Neurological: Cranial nerves II-XII grossly intact, Deep Tendon Reflexes 2+/4 and Symmetrical, Neuro grossly intact Psych/Mental Status: Normal Affect, Appropriate. - Physical Exam Vitals/I&O's: Vital Signs Temp Pulse Resp BP Pulse Ox 98.8 F 107 H 20 H 93/58 L 96 09/07/20 11:39 09/07/20 11:39 09/07/20 11:39 09/07/20 11:39 09/07/20 11:39 Oxygen Flow Rate (L/min) 2 Oxygen Delivery Method Room Air Weight: 179 lb 3.773 oz Body Mass Index (BMI) 26.4 Intake and Output for Last 24 Hours 09/05/20 09/06/20 09/07/20 23:59 23:59 23:59 Intake Total 3110 / 3110 Balance 3110 / 3110 Microbiology Past 72 Hours 09/07/20 00:02 Blood Culture (Wb) - Right Hand Blood Culture - Preliminary 09/06/20 23:30 Blood Culture (Wb) - Left Hand Blood Culture - Preliminary 09/07/20 01:44 Urine, Catheterized Urine Culture - Preliminary Presumptive E. coli Laboratory Results 09/06/20 23:30: WBC 11.8 H, RBC 4.33 L, Hgb 10.4 L, Hct 33.8 L, MCV 78.1 L, MCH 24.0 L, MCHC 30.8 L, RDW Std Deviation 49.6 H, RDW Coeff of Sincere 17.5 H, Plt Count 196, MPV 10.8, Immature Gran % (Auto) 0.600, Neut % (Auto) 85.9 H, Lymph % (Auto) 2.6 L, [place] % (Auto) 10.8 H, Eos % (Auto) 0.0, Baso % (Auto) 0.1, Absolute Neuts (auto) 10.1 H, Absolute Lymphs (auto) 0.31 L, Nucleated RBC % 0, Differential Comment COMMENT 09/06/20 23:30: PT 16.7 H, INR 1.4, APTT 33.3 09/06/20 23:30: Sodium 129 L, Potassium 3.7, Chloride 97 L, Carbon Dioxide 22.0, Anion Gap 10, BUN 38 H, Creatinine 2.12 H, Estim Creat Clear Calc 36.59, Est GFR (MDRD) Af Amer 41 L, Est GFR (MDRD) Non-Af 34 L, BUN/Creatinine Ratio 17.9, Glucose 133 H, Calcium 8.8, Total Bilirubin 1.30 H, AST 18, ALT 18, Alkaline Phosphatase 80, Total Protein 6.9, Albumin 2.4 L, Globulin 4.5 H, Albumin/Globulin Ratio 0.5 L 09/06/20 23:30: Lactic Acid 1.8 09/06/20 23:55: COVID-19 (JANY) Not Detected 09/07/20 00:02: Magnesium 2.0, Iron 14 L, TIBC 160 L, Iron Saturation 8.8 L, Ferritin 409 H 09/07/20 00:02: Hemoglobin A1c 5.6 09/07/20 01:44: Urine Color Yellow, Urine Clarity Cloudy, Urine pH 6.0, Ur Specific [place] 1.015, Urine Protein 100 H, Urine Glucose (UA) Normal, Urine Ketones Negative, Urine Occult Blood 250 H, Urine Nitrite Negative, Urine Bilirubin 1 H, Urine Urobilinogen 8 H, Ur Leukocyte Esterase 500 H, Urine RBC 0- 5 SEEN, Urine WBC >100 SEEN, Ur Squamous Epith Cells 0 SEEN, Ur Transition Epith Cell 0-5 SEEN, Amorphous Sediment 1+, Urine Bacteria 4+, Urine Mucus 0 SEEN 09/07/20 04:56: WBC 7.8, RBC 3.94 L, Hgb 9.2 L, Hct 34.3 L, MCV 87.1 D, MCH 23.4 L, MCHC 26.8 L D, RDW Std Deviation 57.3 H, RDW Coeff of Sincere 17.8 H, Plt Count 157, MPV 10.7, Immature Gran % (Auto) 0.600, Neut % (Auto) 84.7 H, Lymph % (Auto) 4.6 L, [place] % (Auto) 10.0, Eos % (Auto) 0.0, Baso % (Auto) 0.1, Absolute Neuts (auto) 6.6, Absolute Lymphs (auto) 0.36 L, Nucleated RBC % 0, Differential Comment COMMENT, Platelet Estimate ADEQUATE, Crenated Cell 1+ 09/07/20 04:56: Sodium 133 L, Potassium 3.8, Chloride 102, Carbon Dioxide 22.0, Anion Gap 9, BUN 39 H, Creatinine 2.01 H, Estim Creat Clear Calc 38.59, Est GFR (MDRD) Af Amer 44 L, Est GFR (MDRD) Non-Af 36 L, BUN/Creatinine Ratio 19.4, Glucose 127 H, Calcium 8.2 L, Total Bilirubin 1.10 H, AST 19, ALT 15 L, Alkaline Phosphatase 69, Total Protein 6.0 L, Albumin 2.0 L, Globulin 4.0, Albumin/Globulin Ratio 0.5 L Current Medications Acetaminophen (Tylenol) 650 mg PO Q6H PRN PRN PRN Reason: Pain Score 1-10/Temp > 100.7 F Al Hydroxide/Mg Hydroxide (Mylanta Ii) 30 ml PO Q6H PRN PRN PRN Reason: Gastric Burning Albuterol Sulfate (Ventolin Aerosols) 2.5 mg INHALATION Q2H PRN PRN PRN Reason: Dyspnea, wheezing Albuterol/Ipratropium (Duoneb) 3 ml INHALATION Q6HWA.RT [facility] Last Admin: 09/07/20 06:50 Dose: 3 ml Documented by: Aspirin (Ecotrin) 81 mg PO DAILY [facility] Last Admin: 09/07/20 09:22 Dose: 81 mg Documented by: Atorvastatin Calcium (Lipitor) 80 mg PO QHS [facility] Bupropion HCl (Wellbutrin Xl) 150 mg PO QAM [facility] Last Admin: 09/07/20 09:22 Dose: 150 mg Documented by: Clopidogrel Bisulfate (Plavix) 75 mg PO DAILY [facility] Last Admin: 09/07/20 09:22 Dose: 75 mg Documented by: Ferrous Sulfate (Ferrous Sulfate) 325 mg PO 1200,1700 [facility] Guaifenesin (Robitussin) 20 ml PO Q4H PRN PRN PRN Reason: COUGH Heparin Sodium (Porcine) (Heparin Na) 5,000 unit SC Q12 [facility] Last Admin: 09/07/20 09:22 Dose: 5,000 unit Documented by: Sodium Chloride () 1,000 mls @ 150 mls/hr IV .Q6H40M [facility] Last Infusion: 09/07/20 12:13 Dose: 0 mls/hr Documented by: Sodium Chloride () 250 mls @ 15 mls/hr IV .[id number] PRN PRN Reason: Saline Flush Sodium Chloride () 250 mls @ 15 mls/hr IV .[id number] PRN PRN Reason: Additional IVPB Infusion Ceftriaxone Sodium 2 gm/ (Sodium Chloride) 50 mls @ 100 mls/hr IV Q24 [facility] Last Admin: 09/07/20 12:13 Dose: 100 mls/hr Documented by: Pantoprazole Sodium 40 mg/ (Sodium Chloride) 110 mls @ 330 mls/hr IV Q12 [facility] Ferric Sodium Gluconate Complex 250 mg/ Sodium Chloride 270 mls @ 135 mls/hr IV X1 ONE Stop: 09/07/20 14:29 Influenza Virus Vaccine Quadrival (Flucelvax /Fluzone ) 0.5 ml IM .ONCE ONE Stop: 09/08/20 10:01 Magnesium Hydroxide (Milk Of Magnesia) 30 ml PO DAILY PRN PRN PRN Reason: Constipation Melatonin (Melatonin) 3 mg PO QHS PRN PRN PRN Reason: INSOMNIA Morphine Sulfate () 2 mg IV Q3H PRN PRN PRN Reason: Pain Score 6-10 Nitroglycerin (Nitrostat) 0.4 mg SUBLINGUAL Q5M PRN PRN Reason: CARDIAC/CHEST PAIN Ondansetron HCl (Zofran) 4 mg IV Q8H PRN PRN PRN Reason: NAUSEA/VOMITING Last Admin: 09/07/20 05:55 Dose: 4 mg Documented by: Oxycodone HCl (Oxyir) 5 mg PO Q4H PRN PRN PRN Reason: Pain Score 4-5 Prochlorperazine Edisylate (Compazine Iv) 5 mg IV Q4H PRN PRN PRN Reason: Breakthrough Nausea/Vomiting Last Admin: 09/07/20 07:32 Dose: 5 mg Documented by: Psyllium Hydrophilic Mucilloid (Metamucil) 1 packet PO DAILY PRN PRN PRN Reason: Constipation Risperidone (Risperdal) 1 mg PO QHS [facility] Senna/Docusate Sodium (Senokot-S, Yazmin-Colace) 2 tablet PO BID PRN PRN PRN Reason: Constipation Sodium Chloride () 10 - 40 ml IV UD PRN PRN Reason: SALINE FLUSH Throat Lozenges (Cepacol Sore Throat Lozenge) 1 lozenge MUCOUS MEM Q2H PRN PRN PRN Reason: SORE THROAT Assessment/Plan This patient was seen in conjunction with [employer]S SERVERIzzy. I have independently interviewed and examined the patient and reviewed pertinent history, examination findings, laboratory and plan of management. I have reviewed the note and agree with the documented findings with the few additional points. In brief, patient is admitted for fever, chills, renal angle pain and UTI with gram-negative arcenio bacteremia consistent with sepsis from pyelonephritis. CT abdomen and pelvis without contrast ordered. Admission BUN/creatinine 38/2.12, slight improvement on repeat lab. Patient urine is clear. No Taylor catheter. Blood culture shows preliminary gram-negative rods in both bottles. Urine culture more than 100,000 E. coli, sensitivity report pending. On ceftriaxone 2 g IV daily. IV fluid resuscitation. Patient may need urology consult depending upon CT findings. Patient has low hemoglobin 9.2. Anemia work-up consistent with anemia due to chronic disease. Ferritin 409, iron saturation 8.8% with low serum iron and TIBC Other comorbidities as mentioned above. Total time of the visit including total time spent in counseling or coordination of care, (more than 50% of the total time, spent in obtaining medical in formation from nurses and other ancillary care providers), review of labs and imaging is 30 minutes. I have discussed my assessment with SUMMONS SERVERIzzy and orders have been reviewed. Inpatient E&M: [id number] Subs Hosp L3
--- NOTE | 2020-09-07 12:49 | CT_ITS ---
STUDY: CT ABDOMEN AND PELVIS WITHOUT CONTRAST REASON FOR EXAM: Male, 60 years old. UTI, SEPSIS, PYELONEPHRITIS, N/V, COPD, GERD, DB, HTN RADIATION DOSAGE (If Supplied By Facility): CTDIvol = ( 10.74 ) mGy, DLP = ( 592.97 ) mGycm TECHNIQUE: Transaxial images were obtained from the dome of the diaphragm to the symphysis pubis without oral contrast, and without intravenous contrast. Sagittal and coronal images were reconstructed. Individualized dose optimization techniques were used for this CT. COMPARISON: None. FINDINGS: Lung bases are clear. Heart size is normal. The liver is unremarkable. The gallbladder is unremarkable. The spleen and pancreas are unremarkable. The adrenal glands are normal. Punctate nonobstructing upper pole left renal stone. Left kidney is mildly enlarged compared to the right. Moderate lower pole right renal atrophy. No hydronephrosis. There is a 4.2 cm infrarenal abdominal aortic aneurysm. 2 cm left common iliac artery aneurysm. 2 cm right common femoral artery aneurysm. There is no free fluid, free air or organized collection. No bowel obstruction or inflammatory change. Diverticulosis. No acute diverticulitis. Normal appendix. Urinary bladder is unremarkable. Normal abdominal wall. Normal osseous structures. CT/Abdomen/Pelvis without Cont IMPRESSION: 1. No obstructive uropathy. Pyelonephritis is not evaluated without contrast. If there is concern for pyelonephritis, consider contrast enhanced CT of the abdomen. 2. Infrarenal AAA. 3. Left common iliac and right common femoral artery aneurysms. 4. Diverticulosis, no acute diverticulitis. Additional chronic findings are noted above. Electronically Signed: Martha Carrillo MD at 17:56 EDT Tel , Service support ,
[2020-09-07] MEDS: Sodium Ferric Gluconat 250 MG in 0.9% Normal Saline 250 ML 135 MG IV (13:11)
[2020-09-07] MEDS: Ferrous Sulfate 325 MG Tablet PO (16:57)
[2020-09-07] MEDS: Acetaminophen 325 MG Tablet 650 MG PO (18:27)
[2020-09-07] MEDS: RisperiDONE 1 MG Tablet PO (21:11)
[2020-09-07] MEDS: Atorvastatin Calcium 80 MG Tablet PO (21:11)
[2020-09-08] VITALS (17 sets, daily range): BP systolic 96–124; BP diastolic 40–68; PULSE 87–109; RESP 18–24; TEMP 36.5–38.3; O2SAT 89–98
[2020-09-08] MEDS: 0.9% Normal Saline 1,000 ML 150 ML IV ×2 (05:40→11:32)
[2020-09-08 06:04] LABS: Hematocrit 27.4 % (40-54); Hemoglobin 7.9 g/dL (13.0-16.5); Mean Corp Hgb Conc 28.8 g/dL (32-36); Mean Corpuscular Hgb 23.6 pg (27.0-32.0); Mean Corpuscular Volume 81.8 fL (80-94); Mean Platelet Vol. 11.5 fl (6.2-12.0); Platelet Count 168 K/mm3 (150-450); RBC Distribution Width CV 17.9 % (11.6-14.6); RBC Distribution Width SD 53.8 fl (35.1-43.9); Red Blood Count 3.35 M/mm3 (4.6-6.2); White Blood Count 6.5 K/mm3 (4.4-11.0)
[2020-09-08 06:31] LABS: Anion Gap 7 (5-15); BUN 27 mg/dL (7-18); BUN/Creat Ratio 18.2 RATIO (10-20); Calcium,Total 7.6 mg/dL (8.5-10.1); Chloride 111 mmol/L (98-107); Creatinine, Serum 1.48 mg/dL (0.70-1.30); EST Glomerular Filtration Rate 51 mL/min (>60); Est Glom Filt Rate - Afr Amer 62 mL/min (>60); Estimated Creatinine Clearance 52.41 ml/min; Glucose 91 mg/dL (74-106); Potassium 3.7 mmol/L (3.5-5.1); Sodium Level 137 mmol/L (136-145)
[2020-09-08] MEDS: Ipratropium/Albuterol Sulfate 3 ML AMPUL.NEB INHALATION ×3 (06:55→19:28)
[2020-09-08] MEDS: buPROPion (XL) 150 MG TABLET.XL PO (08:55)
[2020-09-08] MEDS: Heparin Injection (Vial) 5,000 UNIT/ML VIAL 5000 UNIT SC ×2 (08:55→23:03)
[2020-09-08] MEDS: Clopidogrel Bisulfate 75 MG Tablet PO (08:55)
[2020-09-08] MEDS: Aspirin E.C. 81 MG Tablet PO (08:55)
--- NOTE | 2020-09-08 11:08 | CASEMGMT ---
FRANSISCO DURON assessment: Face to Face with patient for initial transition planning/care coordination assessment. FRANSISCO DURON introduced self and role at [facility], pt voices understanding and consents to assessment at this time. Pt is lying in bed in no distress at this time. Pt is A/Ox4 at this time and answers all questions appropriately at this time. Care providers, pharmacy, and demographics verified at this time. Presentation: S/P fall-c/o right thigh pain/weakness Admitting dx: Sepsis, pyelonephritis PCP: Misty TURNER Specialists: Pt states no current specialists. Preferred [facility]acy: [facility] Insurance: [facility] A/B, [facility] Prescription Benefit: Yes Living Will/HPOA: Pt states does not have LW/HPOA and declines need for AD info at this time. LNOK: Irene Martinez, friend/roommate Living Arrangements: Pt states lives with friend, Irene Martinez, in mobile home with 4-5 steps in and states no concerns at home at this time. Pt states is independent with ADL's. Transportation: Pt states friend drives and states no transportation concerns at this time. DME/HHC: Pt states no current DME or need for any at this time. Pt states no hx of HHC or SNF in the past. Pt states no concerns with going home at time of discharge. Pt states is disabled. Pt states smokes 2 cigarettes daily and declines ETOH use. Pt states no further concerns/needs at this time. CM to follow for any further discharge planning/needs. Advised pt to ask for CM if any further questions/concerns/needs arise, voices understanding. Pt Goal: Home Plan: [place] FRANSISCO DURON
--- NOTE | 2020-09-08 11:09 | US_ITS ---
HISTORY: PYELONEPHRITIS WITH ACUTE KIDNEY INJURY COMPARISON: CT abdomen pelvis 09/07/2020 TECHNIQUE: Real-time transabdominal imaging of the kidneys was performed. # of images incl. paperwork: 101 FINDINGS: The right and left renal lengths are 9.2 cm and 13.7 cm, respectively. There is mild increased bilateral renal parenchymal echogenicity. No hydronephrosis. No cysts are identified. No focal solid mass or shadowing nephrolithiasis. The urinary bladder is unremarkable with a volume of 143 mL. Right ureteral jet is seen, left ureteral jet is not visualized. US/Kidney and Bladder IMPRESSION: 1. Mild bilateral increased renal parenchymal echotexture compatible with renal medical disease. 2. Right kidney is mildly smaller than contralateral side. at 1753 Reported and signed by: Leroy Rosas MD Electronically Signed: Leroy Rosas MD at 17:52 EDT Tel , Service support ,
[2020-09-08] MEDS: Acetaminophen 325 MG Tablet 650 MG PO (11:32)
[2020-09-08] MEDS: Ferrous Sulfate 325 MG Tablet PO ×2 (11:33→17:38)
--- NOTE | 2020-09-08 13:01 | PCM.PROGNOTE ---
<Izzy Mora PHOTO TECHNICIAN - Last Filed: 09/08/20 13:11> Patient Problems: Active and Suspected Problems (Last Reviewed 01/15/20 @ 09:06 by Autumn Silverio) Sepsis (Acute) UTI (urinary tract infection) (Acute) NOLAN (acute kidney injury) (Acute) Hyponatremia (Acute) Anemia (Acute) Subjective: Patient seen and examined. States he feels improved today. Continues to have intermittent fever. Denies further nausea, vomiting. Denies shortness of breath, cough. - Physical Exam Vitals/I&O's: Vital Signs Temp Pulse Resp BP Pulse Ox 98 F 100 24 H 96/40 L 93 09/08/20 12:29 09/08/20 11:26 09/08/20 11:26 09/08/20 11:26 09/08/20 11:26 Oxygen Flow Rate (L/min) 2.5 Oxygen Delivery Method Nasal Cannula Weight: 179 lb 3.773 oz Body Mass Index (BMI) 26.4 Intake and Output for Last 24 Hours 09/06/20 09/07/20 09/08/20 23:59 23:59 23:59 Intake Total 6140.0 / 6140.0 2875 / 2875 Balance 6140.0 / 6140.0 2875 / 2875 General: Alert, Oriented x3, Cooperative HEENT: Atraumatic, PERRLA, EOMI, Normocephalic Neck: Supple, No JVD, Negative Carotid Bruits Lungs: Clear to auscultation, Normal air movement Cardiovascular: Regular rate, No murmurs Abdomen: Bowel Sounds Present, Soft, Non Tender, Non-Distended Extremities: No clubbing, No cyanosis, No edema, Capillary Refill Less than 3 Seconds Skin: No rashes, No breakdown Musculoskeletal: No Tenderness to Palpation of Joints or Extremities Neurological: Cranial nerves II-XII grossly intact, Neuro grossly intact Psych/Mental Status: Normal Affect, Appropriate Microbiology Past 72 Hours 09/07/20 01:44 Urine, Catheterized Urine Culture - Final Presumptive E. coli 09/07/20 00:02 Blood Culture (Wb) - Right Hand Blood Culture - Preliminary 09/06/20 23:30 Blood Culture (Wb) - Left Hand Blood Culture - Preliminary GNR lactose education program manager Laboratory Results 09/08/20 05:44: WBC 6.5, RBC 3.35 L, Hgb 7.9 L, Hct 27.4 L, MCV 81.8 D, MCH 23.6 L, MCHC 28.8 L D, RDW Std Deviation 53.8 H, RDW Coeff of Sincere 17.9 H, Plt Count 168, MPV 11.5 09/08/20 05:44: Sodium 137, Potassium 3.7, Chloride 111 H, Carbon Dioxide 19.0 L, Anion Gap 7, BUN 27 H, Creatinine 1.48 H, Estim Creat Clear Calc 52.41, Est GFR (MDRD) Af Amer 62, Est GFR (MDRD) Non-Af 51 L, BUN/Creatinine Ratio 18.2, Glucose 91, Calcium 7.6 L Current Medications Acetaminophen (Tylenol) 650 mg PO Q6H PRN PRN PRN Reason: Pain Score 1-10/Temp > 100.7 F Last Admin: 09/08/20 11:32 Dose: 650 mg Documented by: Al Hydroxide/Mg Hydroxide (Mylanta Ii) 30 ml PO Q6H PRN PRN PRN Reason: Gastric Burning Albuterol Sulfate (Ventolin Aerosols) 2.5 mg INHALATION Q2H PRN PRN PRN Reason: Dyspnea, wheezing Albuterol/Ipratropium (Duoneb) 3 ml INHALATION Q6HWA.RT [facility] Last Admin: 09/08/20 12:49 Dose: 3 ml Documented by: Aspirin (Ecotrin) 81 mg PO DAILY [facility] Last Admin: 09/08/20 08:55 Dose: 81 mg Documented by: Atorvastatin Calcium (Lipitor) 80 mg PO QHS [facility] Last Admin: 09/07/20 21:11 Dose: 80 mg Documented by: Bupropion HCl (Wellbutrin Xl) 150 mg PO QAM [facility] Last Admin: 09/08/20 08:55 Dose: 150 mg Documented by: Clopidogrel Bisulfate (Plavix) 75 mg PO DAILY [facility] Last Admin: 09/08/20 08:55 Dose: 75 mg Documented by: Ferrous Sulfate (Ferrous Sulfate) 325 mg PO 1200,1700 [facility] Last Admin: 09/08/20 11:33 Dose: 325 mg Documented by: Guaifenesin (Robitussin) 20 ml PO Q4H PRN PRN PRN Reason: COUGH Heparin Sodium (Porcine) (Heparin Na) 5,000 unit SC Q12 [facility] Last Admin: 09/08/20 08:55 Dose: 5,000 unit Documented by: Sodium Chloride () 1,000 mls @ 150 mls/hr IV .Q6H40M [facility] Last Admin: 09/08/20 11:32 Dose: 150 mls/hr Documented by: Sodium Chloride () 250 mls @ 15 mls/hr IV .[id number] PRN PRN Reason: Saline Flush Sodium Chloride () 250 mls @ 15 mls/hr IV .[id number] PRN PRN Reason: Additional IVPB Infusion Ceftriaxone Sodium 2 gm/ (Sodium Chloride) 50 mls @ 100 mls/hr IV Q24 [facility] Last Infusion: 09/08/20 10:09 Dose: Infused Documented by: Pantoprazole Sodium 40 mg/ (Sodium Chloride) 110 mls @ 330 mls/hr IV Q12 [facility] Last Infusion: 09/08/20 09:15 Dose: Infused Documented by: Melatonin (Melatonin) 3 mg PO QHS PRN PRN PRN Reason: INSOMNIA Morphine Sulfate () 2 mg IV Q3H PRN PRN PRN Reason: Pain Score 6-10 Nitroglycerin (Nitrostat) 0.4 mg SUBLINGUAL Q5M PRN PRN Reason: CARDIAC/CHEST PAIN Ondansetron HCl (Zofran) 4 mg IV Q8H PRN PRN PRN Reason: NAUSEA/VOMITING Last Admin: 09/07/20 05:55 Dose: 4 mg Documented by: Oxycodone HCl (Oxyir) 5 mg PO Q4H PRN PRN PRN Reason: Pain Score 4-5 Prochlorperazine Edisylate (Compazine Iv) 5 mg IV Q4H PRN PRN PRN Reason: Breakthrough Nausea/Vomiting Last Admin: 09/07/20 07:32 Dose: 5 mg Documented by: Psyllium Hydrophilic Mucilloid (Metamucil) 1 packet PO DAILY PRN PRN PRN Reason: Constipation Risperidone (Risperdal) 1 mg PO QHS [facility] Last Admin: 09/07/20 21:11 Dose: 1 mg Documented by: Senna/Docusate Sodium (Senokot-S, Yazmin-Colace) 2 tablet PO BID PRN PRN PRN Reason: Constipation Sodium Chloride () 10 - 40 ml IV UD PRN PRN Reason: SALINE FLUSH Throat Lozenges (Cepacol Sore Throat Lozenge) 1 lozenge MUCOUS MEM Q2H PRN PRN PRN Reason: SORE THROAT Medical Necessity - Tobacco Use Smoking Status: Current every day smoker Tobacco Use: Cigarettes Assessment/Plan All Active Problems (Last Reviewed 01/15/20 @ 09:06 by Autumn Silverio) Sepsis (Acute) UTI (urinary tract infection) (Acute) NOLAN (acute kidney injury) (Acute) Hyponatremia (Acute) Anemia (Acute) 1. Acute sepsis secondary to acute complicated E. coli UTI with pyelonephritis and associated GNR bacteremia-urine growing E. coli, sensitive to Rocephin. Blood cultures preliminary growing gram-negative rods. Continue IV Rocephin. IV fluids per sepsis protocol. Consult ID. CT of abdomen shows no obstructive uropathy. Renal ultrasound pending. 2. Acute kidney injury on chronic kidney disease stage III- improving with IV fluids, trend BMP. 3. Hypovolemic hyponatremia-resolved with IV fluids. 4. Acute microcytic anemia-Prior baseline hemoglobin in April 10. Stool for occult blood ordered. Trend CBC. Will place on IV PPI given unclear etiology. Iron studies show iron deficiency. Continue iron supplementation. Patient has received 6.2 L of IV fluids which may be contributing. If hemoglobin decreases further, will consider general surgery consult. 5. Chronic COPD-no exacerbation. As needed albuterol aerosol. 6. Known a sending aortic aneurysm status post repair-patient underwent AAA repair and aortic valve repair June 2020. CT of abdomen pelvis demonstrates infrarenal AAA 4.2 cm, left common iliac and right common femoral artery aneurysms 2 cm. Continue outpatient follow-up. 7. CAD with history of stent-continue aspirin, Plavix, statin. 8. Type 2 diabetes mellitus-Per history. Hemoglobin A1c 5.6%. 9. Hypertension-stable, not on regimen. 10. Hyperlipidemia-continue statin. 11. Anxiety/depression/bipolar disorder-continue home bupropion and risperidone regimen. 12. Tobacco dependence-encouraged cessation. Nicotine replacement patch. 13. GERD-continue PPI. DVT prophylaxis-SCDs This patient was seen by ANDREW Adams under the supervision of Dr. Coronado. <Thai Coronado - Last Filed: 09/08/20 17:26> Subjective: Seen and examined. Patient still having fever, 100.9 Fahrenheit. Heart rate in 90s sometimes 100s. Objective: Patient had about 1 year of intermittent micturition, incomplete emptying of bladder and straining urine. Possible BPH Physical exam General: Alert, Oriented x3, Cooperative HEENT: Atraumatic, PERRLA, EOMI, Normocephalic Oral: No Gingival or Mucosal Lesions/ Ulcerations Neck: Supple, No JVD, Negative Carotid Bruits Lungs: Air entry diminished in bilateral lung bases. No crepitation/rhonchi Cardiovascular: Regular rate, Regular Rhythm, Normal S1, Normal S2, No murmurs Abdomen: Bowel Sounds Present, Soft, Non Tender, Non-Distended : Right angle tenderness more than left. No suprapubic tenderness. No purulent discharge per urethra. Extremities: No edema, Capillary Refill Less than 3 Seconds Skin: No rashes, No breakdown Musculoskeletal: No Tenderness to Palpation of Joints or Extremities Neurological: Cranial nerves II-XII grossly intact, Deep Tendon Reflexes 2+/4 and Symmetrical, Neuro grossly intact Psych/Mental Status: Normal Affect, Appropriate. - Physical Exam Vitals/I&O's: Vital Signs Temp Pulse Resp BP Pulse Ox 97.7 F L 96 20 H 105/60 95 09/08/20 14:55 09/08/20 14:55 09/08/20 14:55 09/08/20 14:55 09/08/20 14:55 Oxygen Flow Rate (L/min) 2 Oxygen Delivery Method Nasal Cannula Weight: 179 lb 3.773 oz Body Mass Index (BMI) 26.4 Intake and Output for Last 24 Hours 09/06/20 09/07/20 09/08/20 23:59 23:59 23:59 Intake Total 6140.0 / 6140.0 3370 / 3370 Balance 6140.0 / 6140.0 3370 / 3370 Microbiology Past 72 Hours 09/07/20 01:44 Urine, Catheterized Urine Culture - Final Presumptive E. coli 09/07/20 00:02 Blood Culture (Wb) - Right Hand Blood Culture - Preliminary 09/06/20 23:30 Blood Culture (Wb) - Left Hand Blood Culture - Preliminary GNR lactose education program manager Laboratory Results 09/08/20 05:44: WBC 6.5, RBC 3.35 L, Hgb 7.9 L, Hct 27.4 L, MCV 81.8 D, MCH 23.6 L, MCHC 28.8 L D, RDW Std Deviation 53.8 H, RDW Coeff of Sincere 17.9 H, Plt Count 168, MPV 11.5 09/08/20 05:44: Sodium 137, Potassium 3.7, Chloride 111 H, Carbon Dioxide 19.0 L, Anion Gap 7, BUN 27 H, Creatinine 1.48 H, Estim Creat Clear Calc 52.41, Est GFR (MDRD) Af Amer 62, Est GFR (MDRD) Non-Af 51 L, BUN/Creatinine Ratio 18.2, Glucose 91, Calcium 7.6 L Current Medications Acetaminophen (Tylenol) 650 mg PO Q6H PRN PRN PRN Reason: Pain Score 1-10/Temp > 100.7 F Last Admin: 09/08/20 11:32 Dose: 650 mg Documented by: Al Hydroxide/Mg Hydroxide (Mylanta Ii) 30 ml PO Q6H PRN PRN PRN Reason: Gastric Burning Albuterol Sulfate (Ventolin Aerosols) 2.5 mg INHALATION Q2H PRN PRN PRN Reason: Dyspnea, wheezing Albuterol/Ipratropium (Duoneb) 3 ml INHALATION Q6HWA.RT [facility] Last Admin: 09/08/20 12:49 Dose: 3 ml Documented by: Aspirin (Ecotrin) 81 mg PO DAILY [facility] Last Admin: 09/08/20 08:55 Dose: 81 mg Documented by: Atorvastatin Calcium (Lipitor) 80 mg PO QHS [facility] Last Admin: 09/07/20 21:11 Dose: 80 mg Documented by: Bupropion HCl (Wellbutrin Xl) 150 mg PO QAM [facility] Last Admin: 09/08/20 08:55 Dose: 150 mg Documented by: Clopidogrel Bisulfate (Plavix) 75 mg PO DAILY [facility] Last Admin: 09/08/20 08:55 Dose: 75 mg Documented by: Ferrous Sulfate (Ferrous Sulfate) 325 mg PO 1200,1700 [facility] Last Admin: 09/08/20 11:33 Dose: 325 mg Documented by: Guaifenesin (Robitussin) 20 ml PO Q4H PRN PRN PRN Reason: COUGH Heparin Sodium (Porcine) (Heparin Na) 5,000 unit SC Q12 [facility] Last Admin: 09/08/20 08:55 Dose: 5,000 unit Documented by: Sodium Chloride () 1,000 mls @ 75 mls/hr IV .[id number] [facility] Last Infusion: 09/08/20 14:50 Dose: 75 mls/hr Documented by: Sodium Chloride () 250 mls @ 15 mls/hr IV .[id number] PRN PRN Reason: Saline Flush Sodium Chloride () 250 mls @ 15 mls/hr IV .[id number] PRN PRN Reason: Additional IVPB Infusion Ceftriaxone Sodium 2 gm/ (Sodium Chloride) 50 mls @ 100 mls/hr IV Q24 [facility] Last Infusion: 09/08/20 10:09 Dose: Infused Documented by: Pantoprazole Sodium 40 mg/ (Sodium Chloride) 110 mls @ 330 mls/hr IV Q12 [facility] Last Infusion: 09/08/20 09:15 Dose: Infused Documented by: Melatonin (Melatonin) 3 mg PO QHS PRN PRN PRN Reason: INSOMNIA Morphine Sulfate () 2 mg IV Q3H PRN PRN PRN Reason: Pain Score 6-10 Nitroglycerin (Nitrostat) 0.4 mg SUBLINGUAL Q5M PRN PRN Reason: CARDIAC/CHEST PAIN Ondansetron HCl (Zofran) 4 mg IV Q8H PRN PRN PRN Reason: NAUSEA/VOMITING Last Admin: 09/07/20 05:55 Dose: 4 mg Documented by: Oxycodone HCl (Oxyir) 5 mg PO Q4H PRN PRN PRN Reason: Pain Score 4-5 Prochlorperazine Edisylate (Compazine Iv) 5 mg IV Q4H PRN PRN PRN Reason: Breakthrough Nausea/Vomiting Last Admin: 09/07/20 07:32 Dose: 5 mg Documented by: Psyllium Hydrophilic Mucilloid (Metamucil) 1 packet PO DAILY PRN PRN PRN Reason: Constipation Risperidone (Risperdal) 1 mg PO QHS [facility] Last Admin: 09/07/20 21:11 Dose: 1 mg Documented by: Senna/Docusate Sodium (Senokot-S, Yazmin-Colace) 2 tablet PO BID PRN PRN PRN Reason: Constipation Sodium Chloride () 10 - 40 ml IV UD PRN PRN Reason: SALINE FLUSH Throat Lozenges (Cepacol Sore Throat Lozenge) 1 lozenge MUCOUS MEM Q2H PRN PRN PRN Reason: SORE THROAT Assessment/Plan This patient was seen in conjunction with PHOTO TECHNICIANIzzy. I have independently interviewed and examined the patient and reviewed pertinent history, examination findings, laboratory and plan of management. I have reviewed the note and agree with the documented findings with the few additional points. In brief, patient is admitted for fever, chills, renal angle pain and UTI with gram-negative arcenio bacteremia consistent with sepsis from pyelonephritis. CT abdomen and pelvis without contrast ordered. Admission BUN/creatinine 38/2.12, slight improvement on repeat lab. Patient urine is clear. No Taylor catheter. Blood culture shows preliminary gram-negative rods in both bottles. Urine culture more than 100,000 E. coli, sensitivity report pending. On ceftriaxone 2 g IV daily. IV fluid resuscitation. Patient seen by ID. CT abdomen shows no obstructive uropathy and ultrasound ordered for concern of pyelonephritis. Patient cannot have a contrast CT scan secondary to NOLAN on CKD stage III. Patient might have BPH with persistent symptoms of lower urinary tract obstruction with intermittent micturition, straining and incomplete emptying for 1 year. Recommend outpatient follow-up with urologist for evaluation of BPH Patient has low hemoglobin 9.2. Anemia work-up consistent with anemia due to chronic disease. Ferritin 409, iron saturation 8.8% with low serum iron and TIBC. H&H dropped from 10.4-7.9 possible from hemodilution. Stool for occult blood ordered. On IV PPI. Other comorbidities as mentioned above. Total time of the visit including total time spent in counseling or coordination of care, (more than 50% of the total time, spent in obtaining medical information from nurses and other ancillary care providers), review of labs and imaging is 30 minutes. I have discussed my assessment with PHOTO TECHNICIANIzzy and orders have been reviewed. Clinical Impression(s) from Imaging Studies Chest X-Ray 09/06/20 23:44 IMPRESSION: Interval median sternotomy. No focal lung consolidative changes. Abdomen/Pelvis CT 09/07/20 12:49 IMPRESSION: 1. No obstructive uropathy. Pyelonephritis is not evaluated without contrast. If there is concern for pyelonephritis, consider contrast enhanced CT of the abdomen. 2. Infrarenal AAA. 3. Left common iliac and right common femoral artery aneurysms. 4. Diverticulosis, no acute diverticulitis. Additional chronic findings are noted above. Inpatient E&M: [id number] Subs Hosp L2
--- NOTE | 2020-09-08 14:27 | PCM.HP.ID ---
Problem List (1) Sepsis Status: Acute Qualifiers: Sepsis type: sepsis due to unspecified organism Sepsis acute organ dysfunction status: unspecified Qualified Code(s): A41.9 - Sepsis, unspecified organism Reason for Consult: bacteremia Consulted by: Dr. Coronado History of Present Illness: The patient is a 60 year old M with CKD, copd, CAD, presented to ED 09/07 with fall out of bed, weakness, fever, nausea, lower abd pain, and dysuria. Reports about a year of straining to urinate, getting up to urinate 3-4 times a night, and sensation of incomplete emptying. Came to ED, cxs sent, started on ceftriaxone, feeling better today. Denies any dysuria now. Full ROS performed and neg except as noted above - Medical History Past Medical History (Chronic Problems): Chronic Problems GERD (gastroesophageal reflux disease) (Chronic) Anxiety and depression (Chronic) Stented coronary artery (Chronic 03/03/12) 3.5X18 mm BMS to proximal mid LAD per Dr. Good Jones @ [facility] 03/03/2012. Atherosclerosis of coronary artery of [place] (Chronic) History of left heart catheterization (Chronic 03/21/20) 06/17/2009; no obstructive disease; 03/03/2012 (followed by PCI of LAD); 01/14/2016 (patent stents in LAD, nonobstructive disease) done @ [facility] in [place], [place] per Dr. Philippe Jones. 03/21/2020:Global LV systolic dysfunction- Mild; LVEF: by LV gram 55 %. Elevated Left Ventricular End Diastolic Pressure. Non obstructive coronary arteries. Widely patent LAD stent. Aortic Root Aneurysm Aortic Valve Insufficiency Mild Dilated aortic root (Chronic) Noted on LHC done 01/14/[address] Good Jones Essential hypertension (Chronic) Hyperlipidemia (Chronic) Diabetes mellitus, type II (Chronic) COPD (chronic obstructive pulmonary disease) (Chronic) Tobacco use (Chronic) Allergies/Adverse Reactions: Allergies No Known Allergies Allergy (Verified 04/07/20 20:50) Home Medications: Ambulatory Orders Medication Instructions Recorded omeprazole 40 mg capsule,delayed 40 mg PO DAILY 01/11/20 release aspirin 81 mg tablet,delayed 81 mg PO DAILY #90 tab 01/15/20 release atorvastatin 80 mg tablet 80 mg PO QHS #90 tab 01/15/20 bupropion HCl 150 mg 24 hr tablet, 150 mg PO QAM 01/15/20 extended release clopidogrel 75 mg tablet 75 mg PO DAILY 01/15/20 risperidone 1 mg tablet 1 mg PO QHS 01/15/20 Ergocalciferol [Vitamin D] 1 cap PO QWEEK 09/07/20 - Social History Tobacco Use: cigarettes Vital Signs Temp Pulse Resp BP Pulse Ox 98 F 102 H 20 H 96/40 L 93 09/08/20 12:29 09/08/20 12:49 09/08/20 12:49 09/08/20 11:26 09/08/20 11:26 Oxygen Flow Rate (L/min) 2.5 Oxygen Delivery Method Nasal Cannula Weight: 81.3 kg Body Mass Index (BMI) 26.4 Microbiology Past 72 Hours 09/07/20 01:44 Urine Culture - Final Urine, Catheterized Presumptive E. coli 09/07/20 00:02 Blood Culture - Preliminary Blood Culture (Wb) - Right Hand 09/06/20 23:30 Blood Culture - Preliminary Blood Culture (Wb) - Left Hand GNR lactose fine arts chair Laboratory Tests Past 24 Hrs 09/08/20 09/08/20 05:44 05:44 WBC 6.5 RBC 3.35 L Hgb 7.9 L Hct 27.4 L MCV 81.8 D MCH 23.6 L MCHC 28.8 L D RDW Std Deviation 53.8 H RDW Coeff of Sincere 17.9 H Plt Count 168 MPV 11.5 Sodium 137 Potassium 3.7 Chloride 111 H Carbon Dioxide 19.0 L Anion Gap 7 BUN 27 H Creatinine 1.48 H Estim Creat Clear Calc 52.41 Est GFR (MDRD) Af Amer 62 Est GFR (MDRD) Non-Af 51 L BUN/Creatinine Ratio 18.2 Glucose 91 Calcium 7.6 L - Other Studies Radiology: [] reviewed Other Studies: [] Route of nutrition/ use of supplements: [] Nutritional Intake: [] IV Site: [] Taylor Catheter: [] - Physical Exam General: Alert, Oriented x3, Cooperative, No apparent distress HEENT: Atraumatic, PERRLA, EOMI Neck: Supple, No Nodes Lungs: Clear to auscultation, Normal air movement Cardiovascular: Regular rate, Regular Rhythm Abdomen: Soft, Non Tender, Non-Distended, - - no flank pain Extremities: No edema Skin: No rashes IV Site: Peripheral, without redness Musculoskeletal: No Tenderness to Palpation of Joints or Extremities Neurological: Cranial nerves II-XII grossly intact - Assessment/Plan Antibiotics: [] Assessment/Plan: [] Active and Suspected Problems (Last Reviewed 01/15/20 @ 09:06 by Autumn Silverio) Sepsis (Acute) UTI (urinary tract infection) (Acute) NOLAN (acute kidney injury) (Acute) Hyponatremia (Acute) Anemia (Acute) sepsis due to GNR bacteremia from urinary source - suspect underlying BPH is what led to this infection. Pt c/o one year of straining, nocturia, and incomplete emptying of bladder. Ucx with ecoli. Much improved NOLAN on CKD, leukocytosis, and fever. Covid neg. No pyelo/stone/hydro seen on CT. Cont ceftriaxone. Consider urology eval in hospital or as an outpt. Renal u/s pending. Will follow, thank you, d/w primary team.
--- NOTE | 2020-09-08 17:39 | NURSING ---
Patient refused all 3 meals today, ensure ordered.
[2020-09-08 19:28] LABS: Hemoglobin 8.6 g/dL (13.0-16.5)
[2020-09-08] MEDS: 0.9% Normal Saline 1,000 ML 75 ML IV (23:04)
[2020-09-08] MEDS: 0.9% Saline Lock 10 ML Syringe IV (23:04)
[2020-09-08] MEDS: Atorvastatin Calcium 80 MG Tablet PO (23:04)
[2020-09-08] MEDS: RisperiDONE 1 MG Tablet PO (23:04)
[2020-09-09] VITALS (12 sets, daily range): BP systolic 113–134; BP diastolic 67–83; PULSE 83–109; RESP 18–20; TEMP 36.6–37.7; O2SAT 94–98
[2020-09-09 06:55] LABS: Hematocrit 24.9 % (40-54); Hemoglobin 7.1 g/dL (13.0-16.5); Mean Corp Hgb Conc 28.5 g/dL (32-36); Mean Corpuscular Hgb 23.1 pg (27.0-32.0); Mean Corpuscular Volume 81.1 fL (80-94); Mean Platelet Vol. 11.3 fl (6.2-12.0); Platelet Count 158 K/mm3 (150-450); RBC Distribution Width CV 18.3 % (11.6-14.6); RBC Distribution Width SD 54.3 fl (35.1-43.9); Red Blood Count 3.07 M/mm3 (4.6-6.2)
[2020-09-09] MEDS: Ipratropium/Albuterol Sulfate 3 ML AMPUL.NEB INHALATION ×3 (07:13→19:25)
[2020-09-09 07:33] LABS: Anion Gap 7 (5-15); BUN 19 mg/dL (7-18); BUN/Creat Ratio 15.3 RATIO (10-20); Calcium,Total 7.6 mg/dL (8.5-10.1); Chloride 112 mmol/L (98-107); Creatinine, Serum 1.24 mg/dL (0.70-1.30); EST Glomerular Filtration Rate 63 mL/min (>60); Est Glom Filt Rate - Afr Amer 76 mL/min (>60); Estimated Creatinine Clearance 62.56 ml/min; Glucose 90 mg/dL (74-106); Potassium 3.4 mmol/L (3.5-5.1); Sodium Level 139 mmol/L (136-145)
--- NOTE | 2020-09-09 10:20 | PCM.PN.ID ---
Patient Problems: Active and Suspected Problems (Last Reviewed 01/15/20 @ 09:06 by Autumn Silverio) Sepsis (Acute) UTI (urinary tract infection) (Acute) NOLAN (acute kidney injury) (Acute) Hyponatremia (Acute) Anemia (Acute) Subjective: Feeling ok, no fever, no abd pain, no more diarrhea - Physical Exam Vitals/I&O's: Vital Signs Temp Pulse Resp BP Pulse Ox 99.6 F H 109 H 18 113/67 94 09/09/20 08:30 09/09/20 08:30 09/09/20 08:30 09/09/20 08:30 09/09/20 08:30 Oxygen Flow Rate (L/min) 2 Oxygen Delivery Method Nasal Cannula Weight: 81.3 kg Body Mass Index (BMI) 26.4 Intake and Output for Last 24 Hours 09/07/20 09/08/20 09/09/20 23:59 23:59 23:59 Intake Total 6140.0 / 6140.0 5386.25 / 5386.25 600 / 600 Balance 6140.0 / 6140.0 5386.25 / 5386.25 600 / 600 General: Alert, Cooperative, No apparent distress Lungs: Clear to auscultation, Normal air movement Cardiovascular: Regular rate, Regular Rhythm Abdomen: Soft, Non Tender, Non-Distended Skin: No rashes Microbiology Past 72 Hours 09/07/20 00:02 Blood Culture (Wb) - Right Hand Blood Culture - Preliminary 09/06/20 23:30 Blood Culture (Wb) - Left Hand Blood Culture - Final Escherichia coli 09/07/20 01:44 Urine, Catheterized Urine Culture - Final Presumptive E. coli Laboratory Results 09/08/20 18:22: Hgb Cancelled, Hct Cancelled 09/08/20 19:14: Hgb 8.6 L, Hct 28.0 L 09/09/20 05:10: WBC 5.0, RBC 3.07 L, Hgb 7.1 L, Hct 24.9 L, MCV 81.1, MCH 23.1 L, MCHC 28.5 L, RDW Std Deviation 54.3 H, RDW Coeff of Sincere 18.3 H, Plt Count 158, MPV 11.3 09/09/20 05:10: Sodium 139, Potassium 3.4 L, Chloride 112 H, Carbon Dioxide 20.0 L, Anion Gap 7, BUN 19 H, Creatinine 1.24, Estim Creat Clear Calc 62.56, Est GFR (MDRD) Af Amer 76, Est GFR (MDRD) Non-Af 63, BUN/Creatinine Ratio 15.3, Glucose 90, Calcium 7.6 L 09/09/20 09:20: Blood Type Pending, Antibody Screen Pending, Crossmatch See Detail Current Medications Acetaminophen (Tylenol) 650 mg PO Q6H PRN PRN PRN Reason: Pain Score 1-10/Temp > 100.7 F Last Admin: 09/08/20 11:32 Dose: 650 mg Documented by: Al Hydroxide/Mg Hydroxide (Mylanta Ii) 30 ml PO Q6H PRN PRN PRN Reason: Gastric Burning Albuterol Sulfate (Ventolin Aerosols) 2.5 mg INHALATION Q2H PRN PRN PRN Reason: Dyspnea, wheezing Albuterol/Ipratropium (Duoneb) 3 ml INHALATION Q6HWA.RT [facility] Last Admin: 09/09/20 07:13 Dose: 3 ml Documented by: Aspirin (Ecotrin) 81 mg PO DAILY [facility] Last Admin: 09/08/20 08:55 Dose: 81 mg Documented by: Atorvastatin Calcium (Lipitor) 80 mg PO QHS [facility] Last Admin: 09/08/20 23:04 Dose: 80 mg Documented by: Bupropion HCl (Wellbutrin Xl) 150 mg PO QAM [facility] Last Admin: 09/08/20 08:55 Dose: 150 mg Documented by: Clopidogrel Bisulfate (Plavix) 75 mg PO DAILY [facility] Last Admin: 09/08/20 08:55 Dose: 75 mg Documented by: Ferrous Sulfate (Ferrous Sulfate) 325 mg PO 1200,1700 [facility] Last Admin: 09/08/20 17:38 Dose: 325 mg Documented by: Guaifenesin (Robitussin) 20 ml PO Q4H PRN PRN PRN Reason: COUGH Heparin Sodium (Porcine) (Heparin Na) 5,000 unit SC Q12 [facility] Last Admin: 09/08/20 23:03 Dose: 5,000 unit Documented by: Sodium Chloride () 1,000 mls @ 75 mls/hr IV .[id number] [facility] Last Infusion: 09/08/20 23:25 Dose: 75 mls/hr Documented by: Sodium Chloride () 250 mls @ 15 mls/hr IV .[id number] PRN PRN Reason: Saline Flush Sodium Chloride () 250 mls @ 15 mls/hr IV .[id number] PRN PRN Reason: Additional IVPB Infusion Ceftriaxone Sodium 2 gm/ (Sodium Chloride) 50 mls @ 100 mls/hr IV Q24 [facility] Last Infusion: 09/08/20 10:09 Dose: Infused Documented by: Pantoprazole Sodium 40 mg/ (Sodium Chloride) 110 mls @ 330 mls/hr IV Q12 [facility] Last Infusion: 09/08/20 23:24 Dose: Infused Documented by: Melatonin (Melatonin) 3 mg PO QHS PRN PRN PRN Reason: INSOMNIA Morphine Sulfate () 2 mg IV Q3H PRN PRN PRN Reason: Pain Score 6-10 Nitroglycerin (Nitrostat) 0.4 mg SUBLINGUAL Q5M PRN PRN Reason: CARDIAC/CHEST PAIN Nutritional Formula (Lactose Free) (Ensure Enlive) 120 ml PO 4X/DAY [facility] Last Admin: 09/08/20 23:03 Dose: 120 ml Documented by: Ondansetron HCl (Zofran) 4 mg IV Q8H PRN PRN PRN Reason: NAUSEA/VOMITING Last Admin: 09/07/20 05:55 Dose: 4 mg Documented by: Oxycodone HCl (Oxyir) 5 mg PO Q4H PRN PRN PRN Reason: Pain Score 4-5 Prochlorperazine Edisylate (Compazine Iv) 5 mg IV Q4H PRN PRN PRN Reason: Breakthrough Nausea/Vomiting Last Admin: 09/07/20 07:32 Dose: 5 mg Documented by: Psyllium Hydrophilic Mucilloid (Metamucil) 1 packet PO DAILY PRN PRN PRN Reason: Constipation Risperidone (Risperdal) 1 mg PO QHS [facility] Last Admin: 09/08/20 23:04 Dose: 1 mg Documented by: Senna/Docusate Sodium (Senokot-S, Yazmin-Colace) 2 tablet PO BID PRN PRN PRN Reason: Constipation Sodium Chloride () 10 - 40 ml IV UD PRN PRN Reason: SALINE FLUSH Last Admin: 09/08/20 23:04 Dose: 10 ml Documented by: Tamsulosin HCl (Flomax) 0.4 mg PO DAILY@1730 [facility] Throat Lozenges (Cepacol Sore Throat Lozenge) 1 lozenge MUCOUS MEM Q2H PRN PRN PRN Reason: SORE THROAT Medical Necessity - Tobacco Use Smoking Status: Current every day smoker Tobacco Use: Cigarettes Route of nutrition/ use of supplements: [] Nutritional Intake: [] IV Site: [] Taylor Catheter: [] - Assessment/Plan Antibiotics: [] Assessment/Plan: [] Active and Suspected Problems (Last Reviewed 01/15/20 @ 09:06 by Autumn Silverio) Sepsis (Acute) UTI (urinary tract infection) (Acute) NOLAN (acute kidney injury) (Acute) Hyponatremia (Acute) Anemia (Acute) sepsis due to ecoli bacteremia from urinary source - suspect underlying BPH is what led to this infection. Pt c/o one year of straining, nocturia, and incomplete emptying of bladder. Ucx with ecoli. Much improved NOLAN on CKD, leukocytosis, and fever. Covid neg. No pyelo/stone/hydro seen on CT. Cont ceftriaxone. Consider urology eval in hospital or as an outpt. When ready for discharge, recommend 1 week po amoxicillin. Will follow, d/w primary team.
[2020-09-09] MEDS: Ferrous Sulfate 325 MG Tablet PO ×2 (10:25→16:46)
[2020-09-09] MEDS: Clopidogrel Bisulfate 75 MG Tablet PO (10:25)
[2020-09-09] MEDS: Aspirin E.C. 81 MG Tablet PO (10:26)
[2020-09-09] MEDS: buPROPion (XL) 150 MG TABLET.XL PO (10:27)
--- NOTE | 2020-09-09 12:34 | PCM.PROGNOTE ---
<Cholo Morassica COMMODITY MANAGEMENT SPECIALIST - Last Filed: 09/09/20 12:39> Patient Problems: Active and Suspected Problems (Last Reviewed 01/15/20 @ 09:06 by Autumn Silverio) Sepsis (Acute) UTI (urinary tract infection) (Acute) NOLAN (acute kidney injury) (Acute) Hyponatremia (Acute) Anemia (Acute) Subjective: Patient seen and examined. Denies nausea, vomiting. Denies fever, chills. Reports he has not had a bowel movement in approximately 5 days. States he has had poor appetite and has not felt like eating. Per nursing, patient refused all 3 meals yesterday. Patient reports recent weight loss over the past several months. - Physical Exam Vitals/I&O's: Vital Signs Temp Pulse Resp BP Pulse Ox 99.6 F H 109 H 18 113/67 94 09/09/20 08:30 09/09/20 08:30 09/09/20 08:30 09/09/20 08:30 09/09/20 08:30 Oxygen Flow Rate (L/min) 2 Oxygen Delivery Method Nasal Cannula Weight: 179 lb 3.773 oz Body Mass Index (BMI) 26.4 Intake and Output for Last 24 Hours 09/07/20 09/08/20 09/09/20 23:59 23:59 23:59 Intake Total 6140.0 / 6140.0 5386.25 / 5386.25 710 / 710 Balance 6140.0 / 6140.0 5386.25 / 5386.25 710 / 710 General: Alert, Oriented x3, Cooperative HEENT: Atraumatic, PERRLA, EOMI, Normocephalic Neck: Supple, No JVD, Negative Carotid Bruits Lungs: Clear to auscultation, Normal air movement Cardiovascular: Regular rate, No murmurs Abdomen: Bowel Sounds Present, Soft, Non Tender, Non-Distended Extremities: No clubbing, No cyanosis, No edema, Capillary Refill Less than 3 Seconds Skin: No rashes, No breakdown Musculoskeletal: No Tenderness to Palpation of Joints or Extremities Neurological: Cranial nerves II-XII grossly intact, Neuro grossly intact Psych/Mental Status: Flat Affect Microbiology Past 72 Hours 09/07/20 00:02 Blood Culture (Wb) - Right Hand Blood Culture - Preliminary 09/06/20 23:30 Blood Culture (Wb) - Left Hand Blood Culture - Final Escherichia coli 09/07/20 01:44 Urine, Catheterized Urine Culture - Final Presumptive E. coli Laboratory Results 09/08/20 18:22: Hgb Cancelled, Hct Cancelled 09/08/20 19:14: Hgb 8.6 L, Hct 28.0 L 09/09/20 05:10: WBC 5.0, RBC 3.07 L, Hgb 7.1 L, Hct 24.9 L, MCV 81.1, MCH 23.1 L, MCHC 28.5 L, RDW Std Deviation 54.3 H, RDW Coeff of Sincere 18.3 H, Plt Count 158, MPV 11.3 09/09/20 05:10: Sodium 139, Potassium 3.4 L, Chloride 112 H, Carbon Dioxide 20.0 L, Anion Gap 7, BUN 19 H, Creatinine 1.24, Estim Creat Clear Calc 62.56, Est GFR (MDRD) Af Amer 76, Est GFR (MDRD) Non-Af 63, BUN/Creatinine Ratio 15.3, Glucose 90, Calcium 7.6 L 09/09/20 09:20: Blood Type O POSITIVE, Antibody Screen NEGATIVE, Crossmatch See Detail Current Medications Acetaminophen (Tylenol) 650 mg PO Q6H PRN PRN PRN Reason: Pain Score 1-10/Temp > 100.7 F Last Admin: 09/08/20 11:32 Dose: 650 mg Documented by: Al Hydroxide/Mg Hydroxide (Mylanta Ii) 30 ml PO Q6H PRN PRN PRN Reason: Gastric Burning Albuterol Sulfate (Ventolin Aerosols) 2.5 mg INHALATION Q2H PRN PRN PRN Reason: Dyspnea, wheezing Albuterol/Ipratropium (Duoneb) 3 ml INHALATION Q6HWA.RT [facility] Last Admin: 09/09/20 07:13 Dose: 3 ml Documented by: Atorvastatin Calcium (Lipitor) 80 mg PO QHS [facility] Last Admin: 09/08/20 23:04 Dose: 80 mg Documented by: Bupropion HCl (Wellbutrin Xl) 150 mg PO QAM [facility] Last Admin: 09/09/20 10:27 Dose: 150 mg Documented by: Ferrous Sulfate (Ferrous Sulfate) 325 mg PO 1200,1700 [facility] Last Admin: 09/09/20 10:25 Dose: 325 mg Documented by: Guaifenesin (Robitussin) 20 ml PO Q4H PRN PRN PRN Reason: COUGH Heparin Sodium (Porcine) (Heparin Na) 5,000 unit SC Q12 [facility] Last Admin: 09/09/20 10:26 Dose: Not Given Documented by: Sodium Chloride () 1,000 mls @ 75 mls/hr IV .[id number] [facility] Last Infusion: 09/08/20 23:25 Dose: 75 mls/hr Documented by: Sodium Chloride () 250 mls @ 15 mls/hr IV .[id number] PRN PRN Reason: Saline Flush Sodium Chloride () 250 mls @ 15 mls/hr IV .[id number] PRN PRN Reason: Additional IVPB Infusion Ceftriaxone Sodium 2 gm/ (Sodium Chloride) 50 mls @ 100 mls/hr IV Q24 [facility] Last Admin: 09/09/20 12:09 Dose: 100 mls/hr Documented by: Pantoprazole Sodium 40 mg/ (Sodium Chloride) 110 mls @ 330 mls/hr IV Q12 [facility] Last Infusion: 09/09/20 11:06 Dose: Infused Documented by: Melatonin (Melatonin) 3 mg PO QHS PRN PRN PRN Reason: INSOMNIA Morphine Sulfate () 2 mg IV Q3H PRN PRN PRN Reason: Pain Score 6-10 Nitroglycerin (Nitrostat) 0.4 mg SUBLINGUAL Q5M PRN PRN Reason: CARDIAC/CHEST PAIN Nutritional Formula (Lactose Free) (Ensure Enlive) 120 ml PO 4X/DAY [facility] Last Admin: 09/09/20 10:26 Dose: 120 ml Documented by: Ondansetron HCl (Zofran) 4 mg IV Q8H PRN PRN PRN Reason: NAUSEA/VOMITING Last Admin: 09/07/20 05:55 Dose: 4 mg Documented by: Oxycodone HCl (Oxyir) 5 mg PO Q4H PRN PRN PRN Reason: Pain Score 4-5 Prochlorperazine Edisylate (Compazine Iv) 5 mg IV Q4H PRN PRN PRN Reason: Breakthrough Nausea/Vomiting Last Admin: 09/07/20 07:32 Dose: 5 mg Documented by: Psyllium Hydrophilic Mucilloid (Metamucil) 1 packet PO DAILY PRN PRN PRN Reason: Constipation Risperidone (Risperdal) 1 mg PO QHS [facility] Last Admin: 09/08/20 23:04 Dose: 1 mg Documented by: Senna/Docusate Sodium (Senokot-S, Yazmin-Colace) 2 tablet PO BID PRN PRN PRN Reason: Constipation Sodium Chloride () 10 - 40 ml IV UD PRN PRN Reason: SALINE FLUSH Last Admin: 09/08/20 23:04 Dose: 10 ml Documented by: Tamsulosin HCl (Flomax) 0.4 mg PO DAILY@1730 [facility] Throat Lozenges (Cepacol Sore Throat Lozenge) 1 lozenge MUCOUS MEM Q2H PRN PRN PRN Reason: SORE THROAT Medical Necessity - Tobacco Use Smoking Status: Current every day smoker Tobacco Use: Cigarettes Assessment/Plan All Active Problems (Last Reviewed 01/15/20 @ 09:06 by Autumn Silverio) Sepsis (Acute) UTI (urinary tract infection) (Acute) NOLAN (acute kidney injury) (Acute) Hyponatremia (Acute) Anemia (Acute) 1. Acute sepsis secondary to acute complicated E. coli UTI with pyelonephritis and associated GNR bacteremia-urine growing E. coli, sensitive to Rocephin. Blood cultures grew E. coli as well. Continue IV Rocephin. CT of abdomen shows no obstructive uropathy. Renal ultrasound pending. ID consulted. Plan for 1 week of p.o. amoxicillin at discharge. Patient will need outpatient urology follow-up due to BPH symptoms and recurrent UTIs. Initiated on Flomax. Bladder scan during admission without retention. PT/OT. 2. Acute kidney injury on chronic kidney disease stage III-resolved with IV fluids, trend BMP. 3. Hypovolemic hyponatremia-resolved with IV fluids. 4. Acute microcytic anemia-Prior baseline hemoglobin in April 10. Stool for occult blood ordered. Trend CBC. Continue IV PPI given unclear etiology. Iron studies show iron deficiency. Continue iron supplementation. General surgery consulted due to hemoglobin continuing to trend down. 1 unit PRBC ordered for hemoglobin 7.1. Hold aspirin, Plavix. 5. Chronic COPD-no exacerbation. As needed albuterol aerosol. 6. Known a sending aortic aneurysm status post repair-patient underwent AAA repair and aortic valve repair June 2020. CT of abdomen pelvis demonstrates infrarenal AAA 4.2 cm, left common iliac and right common femoral artery aneurysms 2 cm. Continue outpatient follow-up. 7. CAD with history of stent-continue statin. Aspirin and Plavix on hold. 8. Type 2 diabetes mellitus-Per history. Hemoglobin A1c 5.6%. 9. Hypertension-stable, not on regimen. 10. Hyperlipidemia-continue statin. 11. Anxiety/depression/bipolar disorder-continue home bupropion and risperidone regimen. 12. Tobacco dependence-encouraged cessation. Nicotine replacement patch. 13. GERD-continue PPI. DVT prophylaxis-SCDs This patient was seen by ANDREW Adams under the supervision of Dr. Coronado. <Thai Coronado - Last Filed: 09/09/20 13:23> Objective: Patient is weak and emaciated. Low-grade temperature T-max 99.6 Fahrenheit. Patient hemoglobin dropped from 9.2-7.1. Stool for occult blood was ordered patient did not had bowel movement. Is also constipated for last 5 days. Physical exam General: Alert, Oriented x3, Cooperative HEENT: Atraumatic, PERRLA, EOMI, Normocephalic, pale conjunctiva Oral: No Gingival or Mucosal Lesions/ Ulcerations Neck: Supple, No JVD, Negative Carotid Bruits Lungs: Air entry diminished in bilateral lung bases. No crepitation/rhonchi Cardiovascular: Regular rate, Regular Rhythm, Normal S1, Normal S2, No murmurs Abdomen: Bowel Sounds Present, Soft, Non Tender, Non-Distended : No renal angle or suprapubic tenderness. No purulent discharge per urethra. Extremities: No edema, Capillary Refill Less than 3 Seconds Skin: No rashes, No breakdown Musculoskeletal: No Tenderness to Palpation of Joints or Extremities. Mild to moderate muscle atrophy of extremities and loss of subcutaneous fat Neurological: Cranial nerves II-XII grossly intact, Deep Tendon Reflexes 2+/4 and Symmetrical, Neuro grossly intact Psych/Mental Status: Normal Affect, Appropriate. - Physical Exam Vitals/I&O's: Vital Signs Temp Pulse Resp BP Pulse Ox 99.6 F H 109 H 18 113/67 94 09/09/20 08:30 09/09/20 08:30 09/09/20 08:30 09/09/20 08:30 09/09/20 08:30 Oxygen Flow Rate (L/min) 2 Oxygen Delivery Method Nasal Cannula Weight: 179 lb 3.773 oz Body Mass Index (BMI) 26.4 Intake and Output for Last 24 Hours 09/07/20 09/08/20 09/09/20 23:59 23:59 23:59 Intake Total 6140.0 / 6140.0 5386.25 / 5386.25 760 / 760 Balance 6140.0 / 6140.0 5386.25 / 5386.25 760 / 760 Microbiology Past 72 Hours 09/07/20 00:02 Blood Culture (Wb) - Right Hand Blood Culture - Preliminary 09/06/20 23:30 Blood Culture (Wb) - Left Hand Blood Culture - Final Escherichia coli 09/07/20 01:44 Urine, Catheterized Urine Culture - Final Presumptive E. coli Laboratory Results 09/08/20 18:22: Hgb Cancelled, Hct Cancelled 09/08/20 19:14: Hgb 8.6 L, Hct 28.0 L 09/09/20 05:10: WBC 5.0, RBC 3.07 L, Hgb 7.1 L, Hct 24.9 L, MCV 81.1, MCH 23.1 L, MCHC 28.5 L, RDW Std Deviation 54.3 H, RDW Coeff of Sincere 18.3 H, Plt Count 158, MPV 11.3 09/09/20 05:10: Sodium 139, Potassium 3.4 L, Chloride 112 H, Carbon Dioxide 20.0 L, Anion Gap 7, BUN 19 H, Creatinine 1.24, Estim Creat Clear Calc 62.56, Est GFR (MDRD) Af Amer 76, Est GFR (MDRD) Non-Af 63, BUN/Creatinine Ratio 15.3, Glucose 90, Calcium 7.6 L 09/09/20 09:20: Blood Type O POSITIVE, Antibody Screen NEGATIVE, Crossmatch See Detail Current Medications Acetaminophen (Tylenol) 650 mg PO Q6H PRN PRN PRN Reason: Pain Score 1-10/Temp > 100.7 F Last Admin: 09/08/20 11:32 Dose: 650 mg Documented by: Al Hydroxide/Mg Hydroxide (Mylanta Ii) 30 ml PO Q6H PRN PRN PRN Reason: Gastric Burning Albuterol Sulfate (Ventolin Aerosols) 2.5 mg INHALATION Q2H PRN PRN PRN Reason: Dyspnea, wheezing Albuterol/Ipratropium (Duoneb) 3 ml INHALATION Q6HWA.RT [facility] Last Admin: 09/09/20 07:13 Dose: 3 ml Documented by: Atorvastatin Calcium (Lipitor) 80 mg PO QHS [facility] Last Admin: 09/08/20 23:04 Dose: 80 mg Documented by: Bisacodyl (Bisacodyl 5 Mg Tablet) 20 mg PO 1400 ONE Stop: 09/09/20 14:01 Bupropion HCl (Wellbutrin Xl) 150 mg PO QAM [facility] Last Admin: 09/09/20 10:27 Dose: 150 mg Documented by: Ferrous Sulfate (Ferrous Sulfate) 325 mg PO 1200,1700 [facility] Last Admin: 09/09/20 10:25 Dose: 325 mg Documented by: Guaifenesin (Robitussin) 20 ml PO Q4H PRN PRN PRN Reason: COUGH Sodium Chloride () 1,000 mls @ 75 mls/hr IV .[id number] [facility] Last Infusion: 09/08/20 23:25 Dose: 75 mls/hr Documented by: Sodium Chloride () 250 mls @ 15 mls/hr IV .[id number] PRN PRN Reason: Saline Flush Sodium Chloride () 250 mls @ 15 mls/hr IV .[id number] PRN PRN Reason: Additional IVPB Infusion Ceftriaxone Sodium 2 gm/ (Sodium Chloride) 50 mls @ 100 mls/hr IV Q24 [facility] Last Infusion: 09/09/20 12:50 Dose: Infused Documented by: Pantoprazole Sodium 40 mg/ (Sodium Chloride) 110 mls @ 330 mls/hr IV Q12 [facility] Last Infusion: 09/09/20 11:06 Dose: Infused Documented by: Melatonin (Melatonin) 3 mg PO QHS PRN PRN PRN Reason: INSOMNIA Morphine Sulfate () 2 mg IV Q3H PRN PRN PRN Reason: Pain Score 6-10 Nitroglycerin (Nitrostat) 0.4 mg SUBLINGUAL Q5M PRN PRN Reason: CARDIAC/CHEST PAIN Nutritional Formula (Lactose Free) (Ensure Enlive) 120 ml PO 4X/DAY [facility] Last Admin: 09/09/20 10:26 Dose: 120 ml Documented by: Ondansetron HCl (Zofran) 4 mg IV Q8H PRN PRN PRN Reason: NAUSEA/VOMITING Last Admin: 09/07/20 05:55 Dose: 4 mg Documented by: Oxycodone HCl (Oxyir) 5 mg PO Q4H PRN PRN PRN Reason: Pain Score 4-5 Polyethylene Glycol (Polyethylene Glycol 3350 Bowel Prep) 0 bottle PO DAILY@1600 ONE Stop: 09/09/20 16:01 Prochlorperazine Edisylate (Compazine Iv) 5 mg IV Q4H PRN PRN PRN Reason: Breakthrough Nausea/Vomiting Last Admin: 09/07/20 07:32 Dose: 5 mg Documented by: Psyllium Hydrophilic Mucilloid (Metamucil) 1 packet PO DAILY PRN PRN PRN Reason: Constipation Risperidone (Risperdal) 1 mg PO QHS [facility] Last Admin: 09/08/20 23:04 Dose: 1 mg Documented by: Senna/Docusate Sodium (Senokot-S, Yazmin-Colace) 2 tablet PO BID PRN PRN PRN Reason: Constipation Sodium Chloride () 10 - 40 ml IV UD PRN PRN Reason: SALINE FLUSH Last Admin: 09/08/20 23:04 Dose: 10 ml Documented by: Tamsulosin HCl (Flomax) 0.4 mg PO DAILY@1730 [facility] Throat Lozenges (Cepacol Sore Throat Lozenge) 1 lozenge MUCOUS MEM Q2H PRN PRN PRN Reason: SORE THROAT Assessment/Plan This patient was seen in conjunction with COMMODITY MANAGEMENT SPECIALIST, Izzy. I have independently interviewed and examined the patient and reviewed pertinent history, examination findings, laboratory and plan of management. I have reviewed the note and agree with the documented findings with the few additional points. In brief, patient is admitted for fever, chills, renal angle pain and UTI with gram-negative arcenio bacteremia consistent with sepsis from pyelonephritis. CT abdomen and pelvis without contrast ordered. Admission BUN/creatinine 38/2.12, slight improvement on repeat lab. Patient urine is clear. No Taylor catheter. Blood culture shows preliminary gram-negative rods in both bottles. Urine culture more than 100,000 E. coli, sensitivity report pending. On ceftriaxone 2 g IV daily. IV fluid resuscitation. Patient seen by ID. CT abdomen shows no obstructive uropathy and ultrasound ordered for concern of pyelonephritis. Patient cannot have a contrast CT scan secondary to NOLAN on CKD stage III. Patient might have BPH with persistent symptoms of lower urinary tract obstruction with intermittent micturition, straining and incomplete emptying for 1 year. Recommend outpatient follow-up with urologist for evaluation of BPH Patient has low hemoglobin 9.2. Anemia work-up consistent with anemia due to chronic disease. Ferritin 409, iron saturation 8.8% with low serum iron and TIBC. H&H dropped from 10.4-7.9 possible from hemodilution. On IV PPI. Hemoglobin further dropped from 7.9-7.1. PRBC transfusion ordered. General surgery consult to rule out GI bleed. Patient denies hematuria. UA RBC 0-5 cells. Stool for occult blood ordered patient did not had bowel movement. On a stool softener. Other comorbidities as mentioned above. Total time of the visit including total time spent in counseling or coordination of care, (more than 50% of the total time, spent in obtaining medical information from nurses and other ancillary care providers), review of labs and imaging is 30 minutes. I have discussed my assessment with COMMODITY MANAGEMENT SPECIALISTIzzy and orders have been reviewed. Clinical Impression(s) from Imaging Studies Chest X-Ray 09/06/20 23:44 IMPRESSION: Interval median sternotomy. No focal lung consolidative changes. Abdomen/Pelvis CT 09/07/20 12:49 IMPRESSION: 1. No obstructive uropathy. Pyelonephritis is not evaluated without contrast. If there is concern for pyelonephritis, consider contrast enhanced CT of the abdomen. 2. Infrarenal AAA. 3. Left common iliac and right common femoral artery aneurysms. 4. Diverticulosis, no acute diverticulitis. Additional chronic findings are noted above. Inpatient E&M: [id number] [facility] L[facility]
--- NOTE | 2020-09-09 13:54 | PCM.CONS.GEN ---
Problem List (1) Anemia Status: Acute Qualifiers: Anemia type: unspecified type Qualified Code(s): D64.9 - Anemia, unspecified (2) GERD (gastroesophageal reflux disease) Status: Chronic Qualifiers: Esophagitis presence: esophagitis presence not specified Qualified Code(s): K21.9 - Gastro-esophageal reflux disease without esophagitis Reason for Consult Date of Consultation: 09/09/20 Reason for Consultation: Anemia History of Present Illness: The patient is a 60 year old M who presented with fever, chills, and dry heaving x 24 hours. Patient was tested for COVID which returned negative. Urinalysis returned abnormal. Patient currently being treated for pyelonephritis. During his hospitalization, patient has developed decreased hemoglobin. Patient notes he has had a lack of appetite for 1 week. He notes his last bowel movement was last Tuesday. He notes history of intermittent constipation. He denies melena, bright red blood per rectum, abdominal pain, heart burn, reflux disease, previous history of peptic ulcer disease. He notes previous colonoscopy however he is unsure where and how long ago this was. He denies previous EGD. Patient notes recent repair of AAA and aortic valve replacement in 06/[address] [place] 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 He is on Plavix and aspirin. Patient also has a bare-metal stent placed previously. He denies shortness of breath and chest pain currently. He denies previous myocardial infarction, stroke, blood clots. Past Medical History Past Medical History (Chronic Problems): Chronic Problems GERD (gastroesophageal reflux disease) (Chronic) Anxiety and depression (Chronic) Stented coronary artery (Chronic 03/03/12) 3.5X18 mm BMS to proximal mid LAD per Dr. Good Jones @ [facility] 03/03/2012. Atherosclerosis of coronary artery of [place] heart (Chronic) History of left heart catheterization (Chronic 03/21/20) 06/17/2009; no obstructive disease; 03/03/2012 (followed by PCI of LAD); 01/14/2016 (patent stents in LAD, nonobstructive disease) done @ [facility] in [place], [place] per Dr. Philippe Jones. 03/21/2020:Global LV systolic dysfunction- Mild; LVEF: by LV gram 55 %. Elevated Left Ventricular End Diastolic Pressure. Non obstructive coronary arteries. Widely patent LAD stent. Aortic Root Aneurysm Aortic Valve Insufficiency Mild Dilated aortic root (Chronic) Noted on LHC done 01/14/[address] Good Jones Essential hypertension (Chronic) Hyperlipidemia (Chronic) Diabetes mellitus, type II (Chronic) COPD (chronic obstructive pulmonary disease) (Chronic) Tobacco use (Chronic) Medical History: Medical History (Last Reviewed 01/15/20 @ 09:06 by Autumn Silverio) Atherosclerosis of coronary artery of [place] heart (Chronic) I25.10 Dilated aortic root (Chronic) I77.810 Noted on LHC done 01/14/[address] Good oJnes Essential hypertension (Chronic) I10 Hyperlipidemia (Chronic) E78.5 Diabetes mellitus, type II (Chronic) E11.9 COPD (chronic obstructive pulmonary disease) (Chronic) J44.9 Tobacco use (Chronic) Z72.0 GERD (gastroesophageal reflux disease) K21.9 Allergies No Known Allergies Allergy (Verified 04/07/20 20:50) Home Medications: Ambulatory Orders Medication Instructions Recorded omeprazole 40 mg capsule,delayed 40 mg PO DAILY 01/11/20 release aspirin 81 mg tablet,delayed 81 mg PO DAILY #90 tab 01/15/20 release atorvastatin 80 mg tablet 80 mg PO QHS #90 tab 01/15/20 bupropion HCl 150 mg 24 hr tablet, 150 mg PO QAM 01/15/20 extended release clopidogrel 75 mg tablet 75 mg PO DAILY 01/15/20 risperidone 1 mg tablet 1 mg PO QHS 01/15/20 Ergocalciferol [Vitamin D] 1 cap PO QWEEK 09/07/20 Amoxicillin 500 mg PO TID #20 tab 09/09/20 Surgical History: Surgical History (Last Updated 03/21/20 @ 11:36 by Autumn Silverio) Stented coronary artery (Chronic) Onset Date: 03/03/12 Z95.5 3.5X18 mm BMS to proximal mid LAD per Dr. Good Jones @ [facility] 03/03/2012. History of left heart catheterization (Chronic) Onset Date: 03/21/20 Z98.890 06/17/2009; no obstructive disease; 03/03/2012 (followed by PCI of LAD); 01/14/2016 (patent stents in LAD, nonobstructive disease) done @ [facility] in [place], [place] per Dr. Philippe Jones. 03/21/2020:Global LV systolic dysfunction- Mild; LVEF: by LV gram 55 %. Elevated Left Ventricular End Diastolic Pressure. Non obstructive coronary arteries. Widely patent LAD stent. Aortic Root Aneurysm Aortic Valve Insufficiency Mild Surgical History: - - Recent aortic aneurysm repair and aortic valve repair concurrently, PCI with bare-metal stent prior. Psychiatric History: Bipolar Lives: Spouse/ Significant Other - Lives with his girlfriend and notes that also his [id number] lives with him. Smoking Status: Current every day smoker Tobacco Use: Cigarettes Alcohol: None Drugs: None - *Family History Maternal Family History: Family History (Last Updated 01/15/20 @ 09:17 by Autumn Silverio) Unknown No problems noted. History Items: - - Patient notes he is adopted and does not know any of his maternal or paternal family history. Paternal Family History: Family History (Last Updated 01/15/20 @ 09:17 by Autumn Silverio) Unknown No problems noted. History Items: - - Patient notes he is adopted and does not know any of his maternal or paternal family history. Review of Systems Constitutional: Reports: Anorexia, Weakness, Weight Change, Fatigue HEENT: Denies: Head Aches, Sinus Congestion, Sinus Drainage Cardiovascular: Denies: Chest Pain, Palpitations Respiratory: Denies: Cough, Shortness of breath at rest, Sputum production Gastrointestinal: Reports: Constipation. Denies: Abdominal Pain, Diarrhea, Dyspepsia, Hematemesis, Hematochezia, Nausea, Melena, Vomiting Genitourinary: Denies: Dysuria Musculoskeletal: Denies: Joint Pain, Joint Tenderness Skin: Denies: Rash, Wounds Neurological: Denies: Numbness, Tingling, Focal weakness Psychiatric: Denies: Anxiety, Depression, Homicidal Ideations, Suicidal Ideations Hematologic/ Lymphatic: Reports: Anemia, Easy Bruising, Easy Bleeding Patient Problems: Active and Suspected Problems (Last Reviewed 01/15/20 @ 09:06 by Autumn Silverio) Sepsis (Acute) UTI (urinary tract infection) (Acute) NOLAN (acute kidney injury) (Acute) Hyponatremia (Acute) Anemia (Acute) - Physical Exam Vitals/I&O's: Vital Signs Temp Pulse Resp BP Pulse Ox 99.6 F H 109 H 18 113/67 94 09/09/20 08:30 09/09/20 08:30 09/09/20 08:30 09/09/20 08:30 09/09/20 08:30 Oxygen Flow Rate (L/min) 2 Oxygen Delivery Method Nasal Cannula Weight: 179 lb 3.773 oz Body Mass Index (BMI) 26.4 Intake and Output for Last 24 Hours 09/07/20 09/08/20 09/09/20 23:59 23:59 23:59 Intake Total 6140.0 / 6140.0 5386.25 / 5386.25 1260 / 1260 Balance 6140.0 / 6140.0 5386.25 / 5386.25 1260 / 1260 General: Alert, Oriented x3, Cooperative HEENT: Atraumatic, PERRLA, EOMI, Normocephalic Neck: Supple, No JVD, Negative Carotid Bruits Lungs: Clear to auscultation, Normal air movement Cardiovascular: Regular rate, No murmurs Abdomen: Bowel Sounds Present, Soft, Non Tender Extremities: No edema, Capillary Refill Less than 3 Seconds Skin: No rashes, No breakdown Musculoskeletal: No Tenderness to Palpation of Joints or Extremities Neurological: Neuro grossly intact Microbiology Past 72 Hours 09/07/20 00:02 Blood Culture (Wb) - Right Hand Blood Culture - Preliminary 09/06/20 23:30 Blood Culture (Wb) - Left Hand Blood Culture - Final Escherichia coli 09/07/20 01:44 Urine, Catheterized Urine Culture - Final Presumptive E. coli Laboratory Results 09/08/20 18:22: Hgb Cancelled, Hct Cancelled 09/08/20 19:14: Hgb 8.6 L, Hct 28.0 L 09/09/20 05:10: WBC 5.0, RBC 3.07 L, Hgb 7.1 L, Hct 24.9 L, MCV 81.1, MCH 23.1 L, MCHC 28.5 L, RDW Std Deviation 54.3 H, RDW Coeff of Sincere 18.3 H, Plt Count 158, MPV 11.3 09/09/20 05:10: Sodium 139, Potassium 3.4 L, Chloride 112 H, Carbon Dioxide 20.0 L, Anion Gap 7, BUN 19 H, Creatinine 1.24, Estim Creat Clear Calc 62.56, Est GFR (MDRD) Af Amer 76, Est GFR (MDRD) Non-Af 63, BUN/Creatinine Ratio 15.3, Glucose 90, Calcium 7.6 L 09/09/20 09:20: Blood Type O POSITIVE, Antibody Screen NEGATIVE, Crossmatch See Detail Current Medications Acetaminophen (Tylenol) 650 mg PO Q6H PRN PRN PRN Reason: Pain Score 1-10/Temp > 100.7 F Last Admin: 09/08/20 11:32 Dose: 650 mg Documented by: Al Hydroxide/Mg Hydroxide (Mylanta Ii) 30 ml PO Q6H PRN PRN PRN Reason: Gastric Burning Albuterol Sulfate (Ventolin Aerosols) 2.5 mg INHALATION Q2H PRN PRN PRN Reason: Dyspnea, wheezing Albuterol/Ipratropium (Duoneb) 3 ml INHALATION Q6HWA.RT [facility] Last Admin: 09/09/20 13:18 Dose: 3 ml Documented by: Atorvastatin Calcium (Lipitor) 80 mg PO QHS [facility] Last Admin: 09/08/20 23:04 Dose: 80 mg Documented by: Bupropion HCl (Wellbutrin Xl) 150 mg PO QAM [facility] Last Admin: 09/09/20 10:27 Dose: 150 mg Documented by: Ferrous Sulfate (Ferrous Sulfate) 325 mg PO 1200,1700 [facility] Last Admin: 09/09/20 10:25 Dose: 325 mg Documented by: Guaifenesin (Robitussin) 20 ml PO Q4H PRN PRN PRN Reason: COUGH Sodium Chloride () 1,000 mls @ 75 mls/hr IV .[id number] [facility] Last Admin: 09/09/20 13:49 Dose: Not Given Documented by: Sodium Chloride () 250 mls @ 15 mls/hr IV .[id number] PRN PRN Reason: Saline Flush Sodium Chloride () 250 mls @ 15 mls/hr IV .[id number] PRN PRN Reason: Additional IVPB Infusion Ceftriaxone Sodium 2 gm/ (Sodium Chloride) 50 mls @ 100 mls/hr IV Q24 [facility] Last Infusion: 09/09/20 12:50 Dose: Infused Documented by: Pantoprazole Sodium 40 mg/ (Sodium Chloride) 110 mls @ 330 mls/hr IV Q12 [facility] Last Infusion: 09/09/20 11:06 Dose: Infused Documented by: Melatonin (Melatonin) 3 mg PO QHS PRN PRN PRN Reason: INSOMNIA Morphine Sulfate () 2 mg IV Q3H PRN PRN PRN Reason: Pain Score 6-10 Nitroglycerin (Nitrostat) 0.4 mg SUBLINGUAL Q5M PRN PRN Reason: CARDIAC/CHEST PAIN Nutritional Formula (Lactose Free) (Ensure Enlive) 120 ml PO 4X/DAY [facility] Last Admin: 09/09/20 13:50 Dose: Not Given Documented by: Ondansetron HCl (Zofran) 4 mg IV Q8H PRN PRN PRN Reason: NAUSEA/VOMITING Last Admin: 09/07/20 05:55 Dose: 4 mg Documented by: Oxycodone HCl (Oxyir) 5 mg PO Q4H PRN PRN PRN Reason: Pain Score 4-5 Prochlorperazine Edisylate (Compazine Iv) 5 mg IV Q4H PRN PRN PRN Reason: Breakthrough Nausea/Vomiting Last Admin: 09/07/20 07:32 Dose: 5 mg Documented by: Psyllium Hydrophilic Mucilloid (Metamucil) 1 packet PO DAILY PRN PRN PRN Reason: Constipation Risperidone (Risperdal) 1 mg PO QHS [facility] Last Admin: 09/08/20 23:04 Dose: 1 mg Documented by: Senna/Docusate Sodium (Senokot-S, Yazmin-Colace) 2 tablet PO BID PRN PRN PRN Reason: Constipation Sodium Chloride () 10 - 40 ml IV UD PRN PRN Reason: SALINE FLUSH Last Admin: 09/08/20 23:04 Dose: 10 ml Documented by: Tamsulosin HCl (Flomax) 0.4 mg PO DAILY@1730 [facility] Throat Lozenges (Cepacol Sore Throat Lozenge) 1 lozenge MUCOUS MEM Q2H PRN PRN PRN Reason: SORE THROAT Assessment/Plan All Active Problems (Last Reviewed 01/15/20 @ 09:06 by Autumn Silverio) Sepsis (Acute) UTI (urinary tract infection) (Acute) NOLAN (acute kidney injury) (Acute) Hyponatremia (Acute) Anemia (Acute) I have been consulted in conjunction with Dr. Phipps Impression: Anemia. Plan: I have discussed this patient with Dr. Phipps. Dr. Phipps will plan to perform an upper and lower scope. Procedure details, risks and benefits have been discussed. Plan to bowel prep with Nulytely. Patient will be given 1 unit of PRBC for Hgb of 7.1. Patient has had the opportunity to ask and have questions answered. Patient verbally understands and agrees with the plan. Thank you for allowing us to participate in this patient's care. Office Visits / Consults: [id number] IP Consult L3
[2020-09-09] MEDS: 0.9% Normal Saline 1,000 ML 75 ML IV (16:38)
[2020-09-09] MEDS: 0.9% Saline Lock 10 ML Syringe IV (16:38)
[2020-09-09] MEDS: Tamsulosin HCl 0.4 MG Capsule PO (16:46)
[2020-09-09] MEDS: Electrolyte Solution/Peg's 4000 ML PO (16:54)
[2020-09-09 17:53] LABS: Hematocrit 28.9 % (40-54); Hemoglobin 8.5 g/dL (13.0-16.5)
[2020-09-09] MEDS: RisperiDONE 1 MG Tablet PO (21:15)
[2020-09-09] MEDS: Atorvastatin Calcium 80 MG Tablet PO (21:15)
[2020-09-10] VITALS (8 sets, daily range): BP systolic 122–154; BP diastolic 67–75; PULSE 74–89; RESP 18–20; TEMP 36.2–37; O2SAT 93–98; BMI 26.4
[2020-09-10] MEDS: 0.9% Normal Saline 1,000 ML 75 ML IV (05:00)
[2020-09-10 05:22] LABS: Hematocrit 29.2 % (40-54); Hemoglobin 8.4 g/dL (13.0-16.5); Mean Corp Hgb Conc 28.8 g/dL (32-36); Mean Corpuscular Hgb 23.6 pg (27.0-32.0); Mean Platelet Vol. 9.9 fl (6.2-12.0); Platelet Count 163 K/mm3 (150-450); RBC Distribution Width CV 18.3 % (11.6-14.6); RBC Distribution Width SD 55.5 fl (35.1-43.9); Red Blood Count 3.56 M/mm3 (4.6-6.2); White Blood Count 6.7 K/mm3 (4.4-11.0)
[2020-09-10 05:31] LABS: International Normalized Ratio 1.2; Prothrombin Time (Protime)PT. 15.1 SECONDS (11.7-14.9)
[2020-09-10 05:32] LABS: Partial Thromboplast Time 34.4 Seconds (24.1-36.2)
[2020-09-10 05:37] LABS: Anion Gap 8 (5-15); BUN 14 mg/dL (7-18); BUN/Creat Ratio 13.1 RATIO (10-20); Calcium,Total 7.9 mg/dL (8.5-10.1); Chloride 113 mmol/L (98-107); Creatinine, Serum 1.07 mg/dL (0.70-1.30); EST Glomerular Filtration Rate 75 mL/min (>60); Est Glom Filt Rate - Afr Amer 90 mL/min (>60); Glucose 93 mg/dL (74-106); Potassium 3.6 mmol/L (3.5-5.1); Sodium Level 143 mmol/L (136-145)
[2020-09-10] MEDS: Ipratropium/Albuterol Sulfate 3 ML AMPUL.NEB INHALATION ×2 (06:47→13:06)
[2020-09-10] MEDS: buPROPion (XL) 150 MG TABLET.XL PO (09:27)
--- NOTE | 2020-09-10 10:51 | PCM.PN.SRG ---
Patient Problems: Active and Suspected Problems (Last Reviewed 01/15/20 @ 09:06 by Autumn Silverio) Sepsis (Acute) UTI (urinary tract infection) (Acute) NOLAN (acute kidney injury) (Acute) Hyponatremia (Acute) Anemia (Acute) Subjective: Patient evaluated this morning. He has not completed the bowel prep entirely. It was noted by nursing he was continuing to have liquidy brown stool over night. Patient denies abdominal pain. - Physical Exam Vitals/I&O's: Vital Signs Temp Pulse Resp BP Pulse Ox 97.1 F L 89 18 122/67 H 93 09/10/20 09:25 09/10/20 09:25 09/10/20 09:25 09/10/20 09:25 09/10/20 09:25 Oxygen Flow Rate (L/min) 2 Oxygen Delivery Method Nasal Cannula Weight: 179 lb 3.773 oz Body Mass Index (BMI) 26.4 Intake and Output for Last 24 Hours 09/08/20 09/09/20 09/10/20 23:59 23:59 23:59 Intake Total 5386.25 / 5386.25 3266.25 / 3266.25 835 / 835 Balance 5386.25 / 5386.25 3266.25 / 3266.25 835 / 835 General: Alert, Oriented x3, Cooperative Abdomen: Bowel Sounds Present, Soft, Non Tender Microbiology Past 72 Hours 09/09/20 16:25 Stool Stool Occult Blood (RED) - Final 09/07/20 00:02 Blood Culture (Wb) - Right Hand Blood Culture - Preliminary 09/06/20 23:30 Blood Culture (Wb) - Left Hand Blood Culture - Final Escherichia coli 09/07/20 01:44 Urine, Catheterized Urine Culture - Final Presumptive E. coli Laboratory Results 09/09/20 09:20: Blood Type O POSITIVE, Antibody Screen NEGATIVE, Crossmatch See Detail 09/09/20 17:46: Hgb 8.5 L, Hct 28.9 L 09/10/20 05:16: WBC 6.7, RBC 3.56 L, Hgb 8.4 L, Hct 29.2 L, MCV 82.0, MCH 23.6 L, MCHC 28.8 L, RDW Std Deviation 55.5 H, RDW Coeff of Sincere 18.3 H, Plt Count 163, MPV 9.9 10/14/20 05:16: Sodium 143, Potassium 3.6, Chloride 113 H, Carbon Dioxide 22.0, Anion Gap 8, BUN 14, Creatinine 1.07, Estim Creat Clear Calc 72.50, Est GFR (MDRD) Af Amer 90, Est GFR (MDRD) Non-Af 75, BUN/Creatinine Ratio 13.1, Glucose 93, Calcium 7.9 L 09/10/20 05:16: PT 15.1 H, INR 1.2, APTT 34.4 Current Medications Acetaminophen (Tylenol) 650 mg PO Q6H PRN PRN PRN Reason: Pain Score 1-10/Temp > 100.7 F Last Admin: 09/08/20 11:32 Dose: 650 mg Documented by: Al Hydroxide/Mg Hydroxide (Mylanta Ii) 30 ml PO Q6H PRN PRN PRN Reason: Gastric Burning Albuterol Sulfate (Ventolin Aerosols) 2.5 mg INHALATION Q2H PRN PRN PRN Reason: Dyspnea, wheezing Albuterol/Ipratropium (Duoneb) 3 ml INHALATION Q6HWA.RT [facility] Last Admin: 09/10/20 06:47 Dose: 3 ml Documented by: Atorvastatin Calcium (Lipitor) 80 mg PO QHS [facility] Last Admin: 09/09/20 21:15 Dose: 80 mg Documented by: Bupropion HCl (Wellbutrin Xl) 150 mg PO QAM [facility] Last Admin: 09/10/20 09:27 Dose: 150 mg Documented by: Ferrous Sulfate (Ferrous Sulfate) 325 mg PO 1200,1700 [facility] Last Admin: 09/09/20 16:46 Dose: 325 mg Documented by: Guaifenesin (Robitussin) 20 ml PO Q4H PRN PRN PRN Reason: COUGH Sodium Chloride () 1,000 mls @ 75 mls/hr IV .[id number] [facility] Last Admin: 09/10/20 05:00 Dose: 75 mls/hr Documented by: Sodium Chloride () 250 mls @ 15 mls/hr IV .[id number] PRN PRN Reason: Saline Flush Sodium Chloride () 250 mls @ 15 mls/hr IV .[id number] PRN PRN Reason: Additional IVPB Infusion Ceftriaxone Sodium 2 gm/ (Sodium Chloride) 50 mls @ 100 mls/hr IV Q24 [facility] Last Infusion: 09/10/20 09:59 Dose: Infused Documented by: Pantoprazole Sodium 40 mg/ (Sodium Chloride) 110 mls @ 330 mls/hr IV Q12 [facility] Last Infusion: 09/10/20 09:25 Dose: Infused Documented by: Melatonin (Melatonin) 3 mg PO QHS PRN PRN PRN Reason: INSOMNIA Morphine Sulfate () 2 mg IV Q3H PRN PRN PRN Reason: Pain Score 6-10 Nitroglycerin (Nitrostat) 0.4 mg SUBLINGUAL Q5M PRN PRN Reason: CARDIAC/CHEST PAIN Nutritional Formula (Lactose Free) (Ensure Enlive) 120 ml PO 4X/DAY [facility] Last Admin: 09/10/20 09:27 Dose: Not Given Documented by: Ondansetron HCl (Zofran) 4 mg IV Q8H PRN PRN PRN Reason: NAUSEA/VOMITING Last Admin: 09/07/20 05:55 Dose: 4 mg Documented by: Oxycodone HCl (Oxyir) 5 mg PO Q4H PRN PRN PRN Reason: Pain Score 4-5 Prochlorperazine Edisylate (Compazine Iv) 5 mg IV Q4H PRN PRN PRN Reason: Breakthrough Nausea/Vomiting Last Admin: 09/07/20 07:32 Dose: 5 mg Documented by: Psyllium Hydrophilic Mucilloid (Metamucil) 1 packet PO DAILY PRN PRN PRN Reason: Constipation Risperidone (Risperdal) 1 mg PO QHS [facility] Last Admin: 09/09/20 21:15 Dose: 1 mg Documented by: Senna/Docusate Sodium (Senokot-S, Yazmin-Colace) 2 tablet PO BID PRN PRN PRN Reason: Constipation Sodium Chloride () 10 - 40 ml IV UD PRN PRN Reason: SALINE FLUSH Last Admin: 09/09/20 16:38 Dose: 10 ml Documented by: Tamsulosin HCl (Flomax) 0.4 mg PO DAILY@1730 [facility] Last Admin: 09/09/20 16:46 Dose: 0.4 mg Documented by: Throat Lozenges (Cepacol Sore Throat Lozenge) 1 lozenge MUCOUS MEM Q2H PRN PRN PRN Reason: SORE THROAT Medical Necessity - Tobacco Use Smoking Status: Current every day smoker Tobacco Use: Cigarettes Assessment/Plan All Active Problems (Last Reviewed 01/15/20 @ 09:06 by Autumn Silverio) Sepsis (Acute) UTI (urinary tract infection) (Acute) NOLAN (acute kidney injury) (Acute) Hyponatremia (Acute) Anemia (Acute) I am following this patient in conjunction with Dr. Phipps Impression: Anemia. Scopes canceled for today due to patient not being completely cleaned out Patient to continue on a clear liquid diet Miralax bowel prep will be given. Patient will need to drink all of this Miralax within a short period of time. Scopes rescheduled for tomorrow morning with Dr. Phipps Discussed with patient the importance of completing the bowel prep Inpatient E&M: [id number] [facility] L[facility]
[2020-09-10] MEDS: Ferrous Sulfate 325 MG Tablet PO ×2 (11:06→16:34)
--- NOTE | 2020-09-10 13:09 | PN_ITS ---
Patient Problems: Active and Suspected Problems (Last Reviewed 01/15/20 @ 09:06 by Autumn Silverio) Sepsis (Acute) UTI (urinary tract infection) (Acute) NOLAN (acute kidney injury) (Acute) Hyponatremia (Acute) Anemia (Acute) Subjective: Patient seen and examined. Denies nausea, vomiting. Patient currently refusing upper and lower endoscopy. Very flat affect. - Physical Exam Vitals/I&O's: Vital Signs Temp Pulse Resp BP Pulse Ox 97.1 F L 89 18 122/67 H 93 09/10/20 09:25 09/10/20 09:25 09/10/20 09:25 09/10/20 09:25 09/10/20 09:25 Oxygen Flow Rate (L/min) 2 Oxygen Delivery Method Nasal Cannula Weight: 179 lb 3.773 oz Body Mass Index (BMI) 26.4 Intake and Output for Last 24 Hours 09/08/20 09/09/20 09/10/20 23:59 23:59 23:59 Intake Total 5386.25 / 5386.25 3266.25 / 3266.25 935 / 935 Balance 5386.25 / 5386.25 3266.25 / 3266.25 935 / 935 General: Alert, Oriented x3, Cooperative HEENT: Atraumatic, PERRLA, EOMI, Normocephalic Oral: Dry Mucosa Neck: Supple, No JVD, Negative Carotid Bruits Lungs: Clear to auscultation, Normal air movement Cardiovascular: Regular rate, No murmurs Abdomen: Bowel Sounds Present, Soft, Non Tender, Non-Distended Extremities: No clubbing, No cyanosis, No edema, Capillary Refill Less than 3 Seconds Skin: No rashes, No breakdown Musculoskeletal: No Tenderness to Palpation of Joints or Extremities Neurological: Cranial nerves II-XII grossly intact, Neuro grossly intact Psych/Mental Status: Flat Affect Microbiology Past 72 Hours 09/09/20 16:25 Stool Stool Occult Blood (RED) - Final 09/07/20 00:02 Blood Culture (Wb) - Right Hand Blood Culture - Preliminary 09/06/20 23:30 Blood Culture (Wb) - Left Hand Blood Culture - Final Escherichia coli 09/07/20 01:44 Urine, Catheterized Urine Culture - Final Presumptive E. coli Laboratory Results 09/09/20 09:20: Blood Type O POSITIVE, Antibody Screen NEGATIVE, Crossmatch See Detail 09/09/20 17:46: Hgb 8.5 L, Hct 28.9 L 09/10/20 05:16: WBC 6.7, RBC 3.56 L, Hgb 8.4 L, Hct 29.2 L, MCV 82.0, MCH 23.6 L , MCHC 28.8 L, RDW Std Deviation 55.5 H, RDW Coeff of Sincere 18.3 H, Plt Count 163, MPV 9.9 09/10/20 05:16: Sodium 143, Potassium 3.6, Chloride 113 H, Carbon Dioxide 22.0, Anion Gap 8, BUN 14, Creatinine 1.07, Estim Creat Clear Calc 72.50, Est GFR (MDRD) Af Amer 90, Est GFR (MDRD) Non-Af 75, BUN/Creatinine Ratio 13.1, Glucose 93, Calcium 7.9 L 09/10/20 05:16: PT 15.1 H, INR 1.2, APTT 34.4 Current Medications Acetaminophen (Tylenol) 650 mg PO Q6H PRN PRN PRN Reason: Pain Score 1-10/Temp > 100.7 F Last Admin: 09/08/20 11:32 Dose: 650 mg Documented by: Al Hydroxide/Mg Hydroxide (Mylanta Ii) 30 ml PO Q6H PRN PRN PRN Reason: Gastric Burning Albuterol Sulfate (Ventolin Aerosols) 2.5 mg INHALATION Q2H PRN PRN PRN Reason: Dyspnea, wheezing Albuterol/Ipratropium (Duoneb) 3 ml INHALATION Q6HWA.RT [facility] Last Admin: 09/10/20 13:06 Dose: 3 ml Documented by: Atorvastatin Calcium (Lipitor) 80 mg PO QHS [facility] Last Admin: 09/09/20 21:15 Dose: 80 mg Documented by: Bisacodyl (Bisacodyl 5 Mg Tablet) 20 mg PO 1400 ONE Stop: 09/10/20 14:01 Bupropion HCl (Wellbutrin Xl) 150 mg PO QAM [facility] Last Admin: 09/10/20 09:27 Dose: 150 mg Documented by: Ferrous Sulfate (Ferrous Sulfate) 325 mg PO 1200,1700 [facility] Last Admin: 09/10/20 11:06 Dose: 325 mg Documented by: Guaifenesin (Robitussin) 20 ml PO Q4H PRN PRN PRN Reason: COUGH Sodium Chloride () 1,000 mls @ 75 mls/hr IV .[id number] [facility] Last Admin: 09/10/20 05:00 Dose: 75 mls/hr Documented by: Sodium Chloride () 250 mls @ 15 mls/hr IV .[id number] PRN PRN Reason: Saline Flush Sodium Chloride () 250 mls @ 15 mls/hr IV .[id number] PRN PRN Reason: Additional IVPB Infusion Ceftriaxone Sodium 2 gm/ (Sodium Chloride) 50 mls @ 100 mls/hr IV Q24 [facility] Last Infusion: 09/10/20 09:59 Dose: Infused Documented by: Pantoprazole Sodium 40 mg/ (Sodium Chloride) 110 mls @ 330 mls/hr IV Q12 [facility] Last Infusion: 09/10/20 09:25 Dose: Infused Documented by: Melatonin (Melatonin) 3 mg PO QHS PRN PRN PRN Reason: INSOMNIA Morphine Sulfate () 2 mg IV Q3H PRN PRN PRN Reason: Pain Score 6-10 Nitroglycerin (Nitrostat) 0.4 mg SUBLINGUAL Q5M PRN PRN Reason: CARDIAC/CHEST PAIN Nutritional Formula (Lactose Free) (Ensure Enlive) 120 ml PO 4X/DAY [facility] Last Admin: 09/10/20 09:27 Dose: Not Given Documented by: Ondansetron HCl (Zofran) 4 mg IV Q8H PRN PRN PRN Reason: NAUSEA/VOMITING Last Admin: 09/07/20 05:55 Dose: 4 mg Documented by: Oxycodone HCl (Oxyir) 5 mg PO Q4H PRN PRN PRN Reason: Pain Score 4-5 Polyethylene Glycol (Polyethylene Glycol 3350 Bowel Prep) 0 bottle PO DAILY@1600 ONE Stop: 09/10/20 16:01 Prochlorperazine Edisylate (Compazine Iv) 5 mg IV Q4H PRN PRN PRN Reason: Breakthrough Nausea/Vomiting Last Admin: 09/07/20 07:32 Dose: 5 mg Documented by: Psyllium Hydrophilic Mucilloid (Metamucil) 1 packet PO DAILY PRN PRN PRN Reason: Constipation Risperidone (Risperdal) 1 mg PO QHS [facility] Last Admin: 09/09/20 21:15 Dose: 1 mg Documented by: Senna/Docusate Sodium (Senokot-S, Yazmin-Colace) 2 tablet PO BID PRN PRN PRN Reason: Constipation Sodium Chloride () 10 - 40 ml IV UD PRN PRN Reason: SALINE FLUSH Last Admin: 09/09/20 16:38 Dose: 10 ml Documented by: Tamsulosin HCl (Flomax) 0.4 mg PO DAILY@1730 [facility] Last Admin: 09/09/20 16:46 Dose: 0.4 mg Documented by: Throat Lozenges (Cepacol Sore Throat Lozenge) 1 lozenge MUCOUS MEM Q2H PRN PRN PRN Reason: SORE THROAT Medical Necessity - Tobacco Use Smoking Status: Current every day smoker Tobacco Use: Cigarettes Assessment/Plan All Active Problems (Last Reviewed 01/15/20 @ 09:06 by Autumn Silverio) Sepsis (Acute) UTI (urinary tract infection) (Acute) NOLAN (acute kidney injury) (Acute) Hyponatremia (Acute) Anemia (Acute) 1. Acute sepsis secondary to acute complicated E. coli UTI with pyelonephritis and associated GNR bacteremia-urine growing E. coli, sensitive to Rocephin. Blood cultures grew E. coli as well. Continue IV Rocephin. CT of abdomen shows no obstructive uropathy. Renal ultrasound pending. ID consulted. Plan for 1 week of p.o. amoxicillin at discharge. Patient will need outpatient urology follow-up due to BPH symptoms and recurrent UTIs. Initiated on Flomax. Bladder scan during admission without retention. PT/OT. 2. Acute kidney injury on chronic kidney disease stage III-resolved with IV fluids, trend BMP. 3. Hypovolemic hyponatremia-resolved with IV fluids. 4. Acute microcytic anemia-Prior baseline hemoglobin in April 10. Stool for occult blood negative. Trend CBC. Continue IV PPI. Iron studies show iron deficiency. Continue iron supplementation. General surgery consulted. 1 unit PRBC ordered for hemoglobin 7.1. Hold aspirin, Plavix. Hemoglobin now stable. Trend CBC. Patient currently refusing bowel prep. Will reevaluate later today. 5. Chronic COPD-no exacerbation. As needed albuterol aerosol. 6. Known ascending aortic aneurysm status post repair-patient underwent AAA repair and aortic valve repair June 2020. CT of abdomen pelvis demonstrates infrarenal AAA 4.2 cm, left common iliac and right common femoral artery aneurysms 2 cm. Continue outpatient follow-up. 7. CAD with history of stent-continue statin. Aspirin and Plavix on hold. 8. Type 2 diabetes mellitus-Per history. Hemoglobin A1c 5.6%. 9. Hypertension-stable, not on regimen. 10. Hyperlipidemia-continue statin. 11. Anxiety/depression/bipolar disorder-continue home bupropion and risperidone regimen. 12. Tobacco dependence-encouraged cessation. Nicotine replacement patch. 13. GERD-continue PPI. DVT prophylaxis-SCDs This patient was seen by ANDREW Adams under the supervision of Dr. Burroughs.
--- NOTE | 2020-09-10 13:41 | PCM.PN.BLA ---
Progress Note Received a phone call from patient's nurse stating patient is refusing upper and lower scope scheduled tomorrow with Dr. Phipps. New information was discussed with Dr. Phipps. Canceled procedures for tomorrow with OR schedulers. Please re-consult our services if patient changes his mind or if new concerns/status changes. Thank you for allowing us to participate in this patient's care. STROKE Vital Signs/Narrative: Vital Signs Pulse Resp 09/10/20 13:06 85 20 H
--- NOTE | 2020-09-10 13:48 | CASEMGMT ---
MARITA met with patient, introduced self and role at [facility]. MARITA explained to patient that SW wanted to check in with him and make sure he is ok. SW asked about him not wanting the scopes. He said he knows it is just a bleeding ulcer as he has had them before. He is tired of waiting. MARITA explained that if he drinks the bowel prep he could have his scopes tomorrow. He said he doesn't want to bother. SW asked about how he is doing mentally. He said he is fine. SW talked with him about his depression. He said he is fine. MARITA asked about his not wanting to eat and he said he has never been a big eater. He said ever since his by pass surgery in May he has been that way. He said he does feel he cannot do the things he used to do, but this does not bother him. He said he would just lie around at home. He may get up and walk around outside, but that is it. MARITA asked about his support system. He said he lives with his aunt. He has a girlfriend that had a Stroke in the past and he helps care for her. He does not attend counseling. MARITA told him that if he would like to talk to MARITA again he is welcome to ask for MARITA. Nina BROWNING MSW
--- NOTE | 2020-09-10 16:07 | PCM.DC ---
- Discharge Diagnoses Current Active Problems: Current Active and Chronic Problems (Last Reviewed 01/15/20 @ 09:06 by Autumn Silverio) Sepsis (Acute) UTI (urinary tract infection) (Acute) NOLAN (acute kidney injury) (Acute) Hyponatremia (Acute) Anemia (Acute) GERD (gastroesophageal reflux disease) (Chronic) Anxiety and depression (Chronic) You will use the following diet at home:: Cardiac Discharge Activity: Return to Normal Activity Call your doctor if you observe: Shortness of breath, Dizziness, Fainting spells, Chest pain Allergies/Adverse Reactions: Allergies No Known Allergies Allergy (Verified 04/07/20 20:50) Medications to take at Discharge aspirin 81 mg tablet,delayed release 81 mg PO DAILY #90 tab 01/15/20 atorvastatin 80 mg tablet 80 mg PO QHS #90 tab 01/15/20 bupropion HCl 150 mg 24 hr tablet, extended release 150 mg PO QAM 01/15/20 risperidone 1 mg tablet 1 mg PO QHS 01/15/20 Ergocalciferol [Vitamin D] 1 cap PO QWEEK 09/07/20 Amoxicillin 500 mg PO TID #20 tab 09/09/20 Ferrous Sulfate 325 mg PO 1200,1700 #60 tab 09/10/20 Pantoprazole Sodium [Protonix] 40 mg PO BID #60 tab 09/10/20 Tamsulosin HCl [Flomax] 0.4 mg PO DAILY@1730 #30 cap 09/10/20 The following prescriptions were given: Amoxicillin 500 mg PO TID #20 tab Transmission Status: Received by [id number] Ferrous Sulfate 325 mg PO 1200,1700 #60 tab Transmission Status: Pending to [facility] Tamsulosin HCl [Flomax] 0.4 mg PO DAILY@1730 #30 cap Transmission Status: Pending to [facility] Pantoprazole Sodium [Protonix] 40 mg PO BID #60 tab Transmission Status: Pending to [facility] Primary Care Physician: Daya Jay NP, PATTERN ILLUSTRATOR-C [Primary Care Provider] - Please follow up with your Primary Care Physician in: 1 Week Test Results: Test results from this visit will be discussed in further detail at your follow-up appointment, if applicable. Please Follow Up With: Remy Ventura NP, PATTERN ILLUSTRATOR-C When: 09/12/2020 as scheduled Please Follow Up With: Esequiel Phipps MD When: Call for follow up if agreeable to EDG/Colonoscopy Please Follow Up With: Pancho Hull MD - Urology When: Call for follow up Proposed Discharge Date: 09/10/20
--- NOTE | 2020-09-10 16:09 | PCM.DC.SUM ---
Discharge Date and Diagnosis - Problem List Patient Problems: Active and Suspected Problems (Last Reviewed 01/15/20 @ 09:06 by Autumn Silverio) Sepsis (Acute) UTI (urinary tract infection) (Acute) NOLAN (acute kidney injury) (Acute) Hyponatremia (Acute) Anemia (Acute) Date of Admission: 09/07/20 Date of Discharge: 09/10/20 - Primary Discharge Diagnosis Acute Problems: Active Problems (Last Reviewed 01/15/20 @ 09:06 by Autumn Silverio) 1. Acute sepsis secondary to acute complicated E. coli UTI with pyelonephritis and associated e.coli bacteremia 2. Acute kidney injury on chronic kidney disease stage III 3. Hypovolemic hyponatremia 4. Acute microcytic anemia 5. Chronic COPD 6. Known ascending aortic aneurysm status post repair 7. CAD with history of stent 8. Type 2 diabetes mellitus 9. Hypertension 10. Hyperlipidemia 11. Anxiety/depression/bipolar disorder 12. Tobacco dependence 13. GERD - Secondary Discharge Diagnosis Chronic Problems: Chronic Problems GERD (gastroesophageal reflux disease) (Chronic) Anxiety and depression (Chronic) Stented coronary artery (Chronic 03/03/12) 3.5X18 mm BMS to proximal mid LAD per Dr. Good Jones @ [facility] 03/03/2012. Atherosclerosis of coronary artery of [place] heart (Chronic) History of left heart catheterization (Chronic 03/21/20) 06/17/2009; no obstructive disease; 03/03/2012 (followed by PCI of LAD); 01/14/2016 (patent stents in LAD, nonobstructive disease) done @ [facility] in [place], [place] per Dr. Philippe Jones. 03/21/2020:Global LV systolic dysfunction- Mild; LVEF: by LV gram 55 %. Elevated Left Ventricular End Diastolic Pressure. Non obstructive coronary arteries. Widely patent LAD stent. Aortic Root Aneurysm Aortic Valve Insufficiency Mild Dilated aortic root (Chronic) Noted on [facility] done 01/14/[address] Good Jones Essential hypertension (Chronic) Hyperlipidemia (Chronic) Diabetes mellitus, type II (Chronic) COPD (chronic obstructive pulmonary disease) (Chronic) Tobacco use (Chronic) Hospital Course and Treatment Imaging Results: Diagnostic Data Chest X-Ray 09/06/20 23:44 IMPRESSION: Interval median sternotomy. No focal lung consolidative changes. Electronically Signed: Luis Alfredo Nagy, at 1:02 EDT Tel , Service support , Abdomen/Pelvis CT 09/07/20 12:49 IMPRESSION: 1. No obstructive uropathy. Pyelonephritis is not evaluated without contrast. If there is concern for pyelonephritis, consider contrast enhanced CT of the abdomen. 2. Infrarenal AAA. 3. Left common iliac and right common femoral artery aneurysms. 4. Diverticulosis, no acute diverticulitis. Additional chronic findings are noted above. Electronically Signed: Martha Carrillo MD at 17:56 EDT Tel , Service support , Renal Ultrasound 09/08/20 11:09 IMPRESSION: 1. Mild bilateral increased renal parenchymal echotexture compatible with renal medical disease. 2. Right kidney is mildly smaller than contralateral side. at 1753 Reported and signed by: Leroy Rosas MD Electronically Signed: Leroy Rosas MD at 17:52 EDT Tel , Service support , Dr. Jackson- ID Dr. Phipps- General surgery Operations: None Procedures: None Summary of Care Provided: The patient is a 60 year old M admitted 09/07/2020 due to fever, chills, nausea, emesis, dysuria. 1. Acute sepsis secondary to acute complicated E. coli UTI with pyelonephritis and associated E. coli bacteremia-urine growing E. coli, sensitive to Rocephin. Blood cultures grew E. coli as well. IV Rocephin during admission. CT of abdomen shows no obstructive uropathy. Renal ultrasound demonstrated mild bilateral renal medical disease. ID consulted. 1 week of p.o. amoxicillin at discharge. Patient will need outpatient urology follow-up due to BPH symptoms and recurrent UTIs. Initiated on Flomax. Bladder scan during admission without retention. Follow-up with PCP in 1 week. Follow-up with urology in 1 to 2 weeks. 2. Acute kidney injury on chronic kidney disease stage III-resolved with IV fluids. 3. Hypovolemic hyponatremia-resolved with IV fluids. 4. Acute microcytic anemia-Prior baseline hemoglobin in April 10. Stool for occult blood negative. Iron studies show iron deficiency. Continue iron supplementation. General surgery consulted. 1 unit PRBC ordered for hemoglobin 7.1. Patient recommended EGD/colonoscopy however he adamantly refused. Discussed by 3 different providers regarding recommendations and still, patient refused. I personally discussed this recommendation twice with patient day of discharge. He states he is not worried about it. Recommend outpatient follow-up with general surgery and also outpatient monitoring of CBC by primary care provider. Given 6 months since bare-metal stent was placed. Plavix discontinued and will continue on aspirin only at discharge. Continue twice daily PPI. 5. Chronic COPD-no exacerbation. 6. Known ascending aortic aneurysm status post repair-patient underwent AAA repair and aortic valve repair June 2020. CT of abdomen pelvis demonstrates infrarenal AAA 4.2 cm, left common iliac and right common femoral artery aneurysms 2 cm. Continue outpatient follow-up. 7. CAD with history of stent-continue statin. Plavix discontinued. Continue aspirin. Patient has follow-up with cardiology 09/12/2020. 8. Type 2 diabetes mellitus-Per history. Hemoglobin A1c 5.6%. 9. Hypertension-stable, not on regimen. 10. Hyperlipidemia-continue statin. 11. Anxiety/depression/bipolar disorder-continue home bupropion and risperidone regimen. 12. Tobacco dependence-encouraged cessation. Nicotine replacement patch. 13. GERD-continue PPI. General: Alert, Oriented x3, Cooperative HEENT: Atraumatic, PERRLA, EOMI, Normocephalic Oral: Dry Mucosa Neck: Supple, No JVD, Negative Carotid Bruits Lungs: Clear to auscultation, Normal air movement Cardiovascular: Regular rate, No murmurs Abdomen: Bowel Sounds Present, Soft, Non Tender, Non-Distended Extremities: No clubbing, No cyanosis, No edema, Capillary Refill Less than 3 Seconds Skin: No rashes, No breakdown Musculoskeletal: No Tenderness to Palpation of Joints or Extremities Neurological: Cranial nerves II-XII grossly intact, Neuro grossly intact Psych/Mental Status: Flat Affect Patient seen and examined prior to discharge. Physical assessment as noted above. Patient is stable for discharge with follow up recommendations as noted above. This patient was seen by ANDREW Adams under the supervision of Dr. Burroughs. Patient Problems: Active and Suspected Problems (Last Reviewed 01/15/20 @ 09:06 by Autumn Silverio) Sepsis (Acute) UTI (urinary tract infection) (Acute) NOLAN (acute kidney injury) (Acute) Hyponatremia (Acute) Anemia (Acute) - Physical Exam Vitals/I&O's: Vital Signs Temp Pulse Resp BP Pulse Ox 97.5 F L 74 18 154/75 H 97 09/10/20 15:25 09/10/20 15:25 09/10/20 15:25 09/10/20 15:25 09/10/20 15:25 Oxygen Flow Rate (L/min) 2 Oxygen Delivery Method Nasal Cannula Weight: 179 lb 3.773 oz Body Mass Index (BMI) 26.4 Intake and Output for Last 24 Hours 09/08/20 09/09/20 09/10/20 23:59 23:59 23:59 Intake Total 5386.25 / 5386.25 3266.25 / 3266.25 1235 / 1235 Balance 5386.25 / 5386.25 3266.25 / 3266.25 1235 / 1235 Microbiology Past 72 Hours 09/09/20 16:25 Stool Stool Occult Blood (RED) - Final 09/07/20 00:02 Blood Culture (Wb) - Right Hand Blood Culture - Preliminary 09/06/20 23:30 Blood Culture (Wb) - Left Hand Blood Culture - Final Escherichia coli 09/07/20 01:44 Urine, Catheterized Urine Culture - Final Presumptive E. coli Laboratory Results 09/09/20 17:46: Hgb 8.5 L, Hct 28.9 L 09/10/20 05:16: WBC 6.7, RBC 3.56 L, Hgb 8.4 L, Hct 29.2 L, MCV 82.0, MCH 23.6 L, MCHC 28.8 L, RDW Std Deviation 55.5 H, RDW Coeff of Sincere 18.3 H, Plt Count 163, MPV 9.9 09/10/20 05:16: Sodium 143, Potassium 3.6, Chloride 113 H, Carbon Dioxide 22.0, Anion Gap 8, BUN 14, Creatinine 1.07, Estim Creat Clear Calc 72.50, Est GFR (MDRD) Af Amer 90, Est GFR (MDRD) Non-Af 75, BUN/Creatinine Ratio 13.1, Glucose 93, Calcium 7.9 L 09/10/20 05:16: PT 15.1 H, INR 1.2, APTT 34.4 Current Medications Acetaminophen (Tylenol) 650 mg PO Q6H PRN PRN PRN Reason: Pain Score 1-10/Temp > 100.7 F Last Admin: 09/08/20 11:32 Dose: 650 mg Documented by: Al Hydroxide/Mg Hydroxide (Mylanta Ii) 30 ml PO Q6H PRN PRN PRN Reason: Gastric Burning Albuterol Sulfate (Ventolin Aerosols) 2.5 mg INHALATION Q2H PRN PRN PRN Reason: Dyspnea, wheezing Albuterol/Ipratropium (Duoneb) 3 ml INHALATION Q6HWA.RT [facility] Last Admin: 09/10/20 13:06 Dose: 3 ml Documented by: Atorvastatin Calcium (Lipitor) 80 mg PO QHS [facility] Last Admin: 09/09/20 21:15 Dose: 80 mg Documented by: Bupropion HCl (Wellbutrin Xl) 150 mg PO QAM [facility] Last Admin: 09/10/20 09:27 Dose: 150 mg Documented by: Ferrous Sulfate (Ferrous Sulfate) 325 mg PO 1200,1700 [facility] Last Admin: 09/10/20 11:06 Dose: 325 mg Documented by: Guaifenesin (Robitussin) 20 ml PO Q4H PRN PRN PRN Reason: COUGH Sodium Chloride () 1,000 mls @ 75 mls/hr IV .[id number] [facility] Last Infusion: 09/10/20 10:30 Dose: 75 mls/hr Documented by: Sodium Chloride () 250 mls @ 15 mls/hr IV .[id number] PRN PRN Reason: Saline Flush Sodium Chloride () 250 mls @ 15 mls/hr IV .[id number] PRN PRN Reason: Additional IVPB Infusion Ceftriaxone Sodium 2 gm/ (Sodium Chloride) 50 mls @ 100 mls/hr IV Q24 [facility] Last Infusion: 09/10/20 09:59 Dose: Infused Documented by: Pantoprazole Sodium 40 mg/ (Sodium Chloride) 110 mls @ 330 mls/hr IV Q12 [facility] Last Infusion: 10/14/20 09:25 Dose: Infused Documented by: Ferric Sodium Gluconate Complex 250 mg/ Sodium Chloride 270 mls @ 135 mls/hr IV X1 ONE Stop: 09/10/20 16:29 Last Admin: 09/10/20 14:53 Dose: 135 mls/hr Documented by: Melatonin (Melatonin) 3 mg PO QHS PRN PRN PRN Reason: INSOMNIA Morphine Sulfate () 2 mg IV Q3H PRN PRN PRN Reason: Pain Score 6-10 Nitroglycerin (Nitrostat) 0.4 mg SUBLINGUAL Q5M PRN PRN Reason: CARDIAC/CHEST PAIN Nutritional Formula (Lactose Free) (Ensure Enlive) 120 ml PO 4X/DAY [facility] Last Admin: 09/10/20 13:26 Dose: Not Given Documented by: Ondansetron HCl (Zofran) 4 mg IV Q8H PRN PRN PRN Reason: NAUSEA/VOMITING Last Admin: 09/07/20 05:55 Dose: 4 mg Documented by: Oxycodone HCl (Oxyir) 5 mg PO Q4H PRN PRN PRN Reason: Pain Score 4-5 Prochlorperazine Edisylate (Compazine Iv) 5 mg IV Q4H PRN PRN PRN Reason: Breakthrough Nausea/Vomiting Last Admin: 09/07/20 07:32 Dose: 5 mg Documented by: Psyllium Hydrophilic Mucilloid (Metamucil) 1 packet PO DAILY PRN PRN PRN Reason: Constipation Risperidone (Risperdal) 1 mg PO QHS [facility] Last Admin: 09/09/20 21:15 Dose: 1 mg Documented by: Senna/Docusate Sodium (Senokot-S, Yazmin-Colace) 2 tablet PO BID PRN PRN PRN Reason: Constipation Sodium Chloride () 10 - 40 ml IV UD PRN PRN Reason: SALINE FLUSH Last Admin: 09/09/20 16:38 Dose: 10 ml Documented by: Tamsulosin HCl (Flomax) 0.4 mg PO DAILY@1730 [facility] Last Admin: 09/09/20 16:46 Dose: 0.4 mg Documented by: Throat Lozenges (Cepacol Sore Throat Lozenge) 1 lozenge MUCOUS MEM Q2H PRN PRN PRN Reason: SORE THROAT Discharge Diet: Low fat/ Low Cholesterol Discharge Activity: Return to Normal Activity Call your doctor if you observe: Shortness of breath, Dizziness, Fainting spells, Chest pain Home Medications: Medications to take at Discharge aspirin 81 mg tablet,delayed release 81 mg PO DAILY #90 tab 01/15/20 atorvastatin 80 mg tablet 80 mg PO QHS #90 tab 01/15/20 bupropion HCl 150 mg 24 hr tablet, extended release 150 mg PO QAM 01/15/20 risperidone 1 mg tablet 1 mg PO QHS 01/15/20 Ergocalciferol [Vitamin D] 1 cap PO QWEEK 09/07/20 Amoxicillin 500 mg PO TID #20 tab 09/09/20 Ferrous Sulfate 325 mg PO 1200,1700 #60 tab 09/10/20 Pantoprazole Sodium [Protonix] 40 mg PO BID #60 tab 09/10/20 Tamsulosin HCl [Flomax] 0.4 mg PO DAILY@1730 #30 cap 09/10/20 Following Prescriptions Were Given to Patient: Amoxicillin 500 mg PO TID #20 tab Transmission Status: Received by [id number] Ferrous Sulfate 325 mg PO 1200,1700 #60 tab Transmission Status: Pending to [facility] Tamsulosin HCl [Flomax] 0.4 mg PO DAILY@1730 #30 cap Transmission Status: P[facility] to [facility] Pantoprazole Sodium [Protonix] 40 mg PO BID #60 tab Transmission Status: Pending to [facility] Primary Care Physician: Daya Jay NP, EMPLOYMENT SECURITY OFFICER-C [Primary Care Provider] - Please follow up with your Primary Care Physician in: 1 Week Please Follow Up With: Remy Vetnura NP, EMPLOYMENT SECURITY OFFICER-C When: 09/12/2020 as scheduled Please Follow Up With: Esequiel Phipps MD When: Call for follow up if agreeable to EDG/Colonoscopy Please Follow Up With: Pancho Hull MD - Urology When: Call for follow up Disposition: Home Minutes spent on discharge:: 35 Patient Condition:: Stable Medical Necessity - Tobacco Use Smoking Status: Current every day smoker Tobacco Use: Cigarettes Meaningful Use Info Meaningful Use Diagnoses (Choose all that apply): None applicable
--- NOTE | 2020-09-10 16:11 | CASEMGMT ---
This RN CM to room to discuss discharge planning with pt at this time. Pt declines need for any HHC or OP therapy at this time. Pt is aware he will be tested for possible home oxygen need. Pt states no preference for DME company at this time. Script for home oxygen left at desk with instructions at this time. Clair, pt RN, and Severiano, PCU legal secretary receptionist, aware, voices understanding. Pt voices no further questions/concerns/needs at this time. Sandi RN CM
[2020-09-10] MEDS: Tamsulosin HCl 0.4 MG Capsule PO (16:34)
--- NOTE | 2020-09-12 18:05 | CASEMGMT ---
FRANSISCO DURON Discharge Follow-up Phone Call: MOISÉS: Mikhail Strata: 3 Call Date: 09/12/2020 Discharge Date: 09/10/2020 Time of Call: 1805 Admitting Diagnosis: Sepsis 2/2 UTI. Discharge follow-up call attempted to pt's cell phone. Voicemail received and message box stated to be full. Unable to leave a message to request a return call. Geoff Barriga RN CM
== END 2020-09-10 18:11 | disposition home or self-care (01) | DRG 872 ==
LOC: ED 23:47 → PCU 09-07 02:42
PROVIDERS: Anesthesiology; Internal Medicine; Nurse Practitioner Family; Admitting Provider Family Medicine; Emergency Provider Emergency Medicine; PCP Nurse Practitioner Family; Visit Provider Internal Medicine
DX: A41.51 Sepsis due to Escherichia coli [E. coli] (principal); N10 Acute pyelonephritis; N17.9 Acute kidney failure, unspecified; E87.1 Hypo-osmolality and hyponatremia; B96.20 Unspecified Escherichia coli [E. coli] as the cause of diseases classified elsewhere; E86.1 Hypovolemia; D50.9 Iron deficiency anemia, unspecified; I25.10 Atherosclerotic heart disease of native coronary artery without angina pectoris; Z95.5 Presence of coronary angioplasty implant and graft; E11.22 Type 2 diabetes mellitus with diabetic chronic kidney disease; I12.9 Hypertensive chronic kidney disease with stage 1 through stage 4 chronic kidney disease, or unspecified chronic kidney disease; N18.30 Chronic kidney disease, stage 3 unspecified; D63.1 Anemia in chronic kidney disease; E78.5 Hyperlipidemia, unspecified; F31.9 Bipolar disorder, unspecified; F41.9 Anxiety disorder, unspecified; K21.9 Gastro-esophageal reflux disease without esophagitis; J44.9 Chronic obstructive pulmonary disease, unspecified; Z79.01 Long term (current) use of anticoagulants; Z79.82 Long term (current) use of aspirin; Z79.899 Other long term (current) drug therapy; F17.210 Nicotine dependence, cigarettes, uncomplicated; I72.3 Aneurysm of iliac artery; I71.4 Abdominal aortic aneurysm, without rupture; I71.2 Thoracic aortic aneurysm, without rupture; N40.1 Benign prostatic hyperplasia with lower urinary tract symptoms; R39.14 Feeling of incomplete bladder emptying; R35.1 Nocturia; R39.16 Straining to void; Z87.440 Personal history of urinary (tract) infections; Z23 Encounter for immunization
CPT/HCPCS: 36415; 71045; 74176; 76770; 80048; 80053; 81001; 82274; 82728; 83036; 83540; 83550; 83605; 83735; 85014; 85018; 85025; 85027; 85610; 85730; 86850; 86900; 86901; 86920; 86922; 87040; 87077; 87086; 87088; 87186; 87635; 93005; 94640; 97162; 97166; 97802; 97803; 99251; 99285; G0008; J7030; J7040; J7050; P9016; 90686; A4216; G0463; J0696; J2405; J2916; U0003

== ENCOUNTER → 2020-11-18 07:24 | Outpatient (CLI) | payer MEDICARE, MEDICAID, SELFPAY ==
[2020-11-11 10:21] VITALS: BMI 29.2
--- NOTE | 2020-11-18 07:25 | CT_ITS ---
STUDY: LOW DOSE CT LUNG CANCER SCREENING REASON FOR EXAM: Male, 60 years old. TOBACCO DEPENDENCY, 1 PPD X 49 YRS, COPD, CABG, HR=429 RADIATION DOSAGE (If Supplied By Facility): CTDIvol = ( 4.02 ) mGy, DLP = ( 135.42 ) mGycm TECHNIQUE: No contrast was administered. Low dose technique was utilized (average mAS-38 and kVp 120). 1.25 mm axial source images with a slice interval of 1.25-mm were reconstructed in lung windows. 2.5 mm axial source images with a slice interval of 2.5-mm were reconstructed in lung windows. 5.0 mm axial source images with a slice interval of 5.0-mm were reconstructed in soft tissue windows. Nodule measured using lung windows on PACS and/or independent workstation with automated measurement of minimum and maximum diameter. Nodule measurement reported as average diameter rounded to the nearest whole number. Growth is defined as an increase ins size of greater than 1.5 mm. COMPARISON: None. NODULES: No suspicious nodules are seen. Emphysema: Hyperinflation. Scarring at the lung apices. There is evidence of emphysematous changes with bullous formation worse in the right upper lobe. Minimal scarring at the lung bases. Endobronchial lesion: None Aorta: Atherosclerotic plaque formation of the aortic arch Coronary arteries: Prior CABG. [place] coronary artery calcification. Heart: Unremarkable Mediastinal nodes: Small benign appearing mediastinal lymph nodes. Other chest and abdominal findings: Moderate sized hiatal hernia. CT/Low Dose CT Lung Screening IMPRESSION: Lung-RADS category 2 - Continue annual screening with LDCT in 12 months. IMPORTANT NOTES FOR USE: ACR Lung-RADS Version 1.0 Assessment Categories Release Date: March 25, 2014 Category: Coded 0-4 bases on nodule(s) with highest degree of suspicion. Negative screen is defined as categories 1 and 2; a positive screen is defined as categories 3 and 4. Category 3 and 4A nodules that are unchanged on interval CT should be coded as category 2, and individuals returned to screening in 12 months. Category 4X: Category 3 or 4 nodules with additional imaging findings that increase the suspicion of lung cancer, such as spiculation, GGN that doubles in size in 1 year, enlarged lymph notes, etc. Category Modifiers: S (significant finding unrelated to lung cancer) and C (prior history of treated lung cancer) may be added to the 0-4 Lung-RADS Electronically Signed: Nam Rizzo, at 8:41 EST , Service support ,
== END ==
PROVIDERS: PCP Nurse Practitioner Family; Referring Provider Internal Medicine Critical Care Medicine; Visit Provider Internal Medicine Critical Care Medicine
DX: F17.210 Nicotine dependence, cigarettes, uncomplicated (principal)
CPT/HCPCS: G0297

== ENCOUNTER → 2020-12-04 09:52 | Outpatient (CLI) | payer MEDICARE, MEDICAID, SELFPAY ==
[2020-11-11 10:21] VITALS: BMI 29.2
[2020-12-04 09:08] VITALS: BMI 29.8
[2020-12-04 10:22] VITALS: PULSE 101; PULSE 111; PULSE 79; PULSE 88; PULSE 89; PULSE 91; PULSE 96; PULSE 99; O2SAT 93; O2SAT 94; O2SAT 97; O2SAT 98
[2020-12-04 11:11] LABS: Absolute Lymphocyte Count 1.12 X10^3/uL (0.83-4.51); Absolute Neutrophil Count 4.9 X10^3/uL (2.0-7.7); Basophil# 0.03 X10^3/uL; Basophil% 0.4 % (0-1); Eosinophil# 0.28 X10^3/uL; Eosinophils% 3.9 % (0-5); Hematocrit 44.4 % (40-54); Lymphocyte # 1.12 X10^3/ul (4.0); Lymphocyte % 15.7 % (19-41); Mean Corp Hgb Conc 29.3 g/dL (32-36); Mean Corpuscular Hgb 25.4 pg (27.0-32.0); Mean Corpuscular Volume 86.7 fL (80-94); Mean Platelet Vol. 10.1 fl (6.2-12.0); Monocyte# 0.76 X10^3/uL; Monocyte% 10.7 % (0-10); NRBC Flagged by Analyzer 0 % (0-5); Neutrophil # 4.91 X10^3/uL (2.7-7.7); Neutrophil % 68.9 % (47-70); Platelet Count 174 K/mm3 (150-450); RBC Distribution Width CV 17.4 % (11.6-14.6); RBC Distribution Width SD 55.8 fl (35.1-43.9); Red Blood Count 5.12 M/mm3 (4.6-6.2); White Blood Count 7.1 K/mm3 (4.4-11.0)
[2020-12-04 11:50] LABS: AST(SGOT) 11 U/L (15-37); Alanine Aminotransfer ALT/SGPT 21 U/L (16-61); Albumin, Serum 3.4 g/dL (3.2-5.0); Alkaline Phosphatase 118 U/L (45-117); Cholesterol 137 mg/dL (200); Globulin 3.9 g/dL (2.2-4.2); High Density Lipoprotein 51 mg/dL; Protein, Total 7.3 g/dL (6.4-8.2); Triglycerides 73 mg/dL; Very Low Density Lipoprotein 15 mg/dL (5-40)
--- NOTE | 2020-12-04 17:08 | PCM.PSN.6M ---
PSN 6 Minute Walk Test - 6 Minute Walk Test 6 Minute Walk Test: 6 Minute Walk Test PSN:6-Minute Walk Test Start: 12/04/20 10:21 Freq: Status: Active Protocol: [id number] Document 12/04/20 10:22 FR (Rec: 12/04/20 10:28 FR [id number]) 6 Minute Walk Test Date Performed 12/04/20 Time Performed 10:10 Height 5 ft 9 in Weight: 87.543 kg Weight in Pounds 193.[address]: Dr. Telles Assistive device used: None Pre-test Oxygen Delivery Method Room Air Pulse Ox (%) 97 Pulse Rate (60-100 beats/min) 79 1st minute Oxygen Delivery Method Room Air Pulse Ox (%) 97 Pulse Rate (60-100 beats/min) 88 2nd minute Oxygen Delivery Method Room Air Pulse Ox (%) 93 Pulse Rate (60-100 beats/min) 89 3rd minute Oxygen Delivery Method Room Air Pulse Ox (%) 94 Pulse Rate (60-100 beats/min) 96 4th minute Oxygen Delivery Method Room Air Pulse Ox (%) 94 Pulse Rate (60-100 beats/min) 99 5th minute Oxygen Delivery Method Room Air Pulse Ox (%) 94 Pulse Rate (60-100 beats/min) 101 H Reported Symptoms Increased Work of Breathing 6th minute Oxygen Delivery Method Room Air Pulse Ox (%) 94 Pulse Rate (60-100 beats/min) 111 H Dyspnea Don Scale (0-10) 9 Exertion Don Scale (6-20) 21 Reported Symptoms Increased Work of Breathing Post-test Oxygen Delivery Method Room Air Pulse Ox (%) 98 Pulse Rate (60-100 beats/min) 91 Full Laps Walked 18 Partial Lap, Number of Tiles Walked 34 Total Distance Walked (ft) 1096 - Interpretation Interpretation: The patient was able to ambulate 1096 feet over the course of 6 minutes on room air with no assistive devices or breaks. The patient experienced significant desaturation to as low as 93% with an element of reflexive tachycardia. These findings are consistent with a respiratory limitation exercise tolerance. - Recommendations Recommendations: No supplemental oxygen is indicated at this time.
== END ==
PROVIDERS: Nurse Practitioner Family; Physician Assistant Medical; PCP Nurse Practitioner Family; Referring Provider Internal Medicine Critical Care Medicine; Visit Provider Internal Medicine Critical Care Medicine
DX: E78.00 Pure hypercholesterolemia, unspecified (principal); E78.5 Hyperlipidemia, unspecified; D64.9 Anemia, unspecified; R94.2 Abnormal results of pulmonary function studies
CPT/HCPCS: 36415; 80061; 80076; 85025; 94618